=== PATIENT | male | born 1960 | race Caucasian/White ===

== ENCOUNTER 2016-09-08 14:52 | Emergency (ER) | payer MEDICARE, MEDICAID ==
--- NOTE | 2016-09-08 15:21 | ER Document Report ---
ED Medical Screen (RME) - General Stated Complaint: POSSIBLE ETOH;ANKLE INJURY Notes: Patient states he was walking and injured his right ankle today. Able to bear weight on ankle. Patient states he has a history of osteoporosis. Patient states he has had a sixpack of beer to drink today I have greeted and performed a rapid initial assessment of this patient. A comprehensive ED assessment and evaluation of the patient, analysis of test results and completion of the medical decision making process will be conducted by additional ED providers. TRAVEL OUTSIDE OF THE [place] IN LAST 30 DAYS: No - Related Data Allergies/Adverse Reactions: Penicillins Allergy (Verified 09/08/16 15:22) ants Allergy (Uncoded 09/08/16 15:22) bees Allergy (Uncoded 09/08/16 15:22) Past Medical History - Past Medical History Cardiac Medical History: Reports: Hx Hypercholesterolemia, Hx Hypertension, Hx Heart Murmur Denies: Hx Heart Attack Pulmonary Medical History: Reports: Hx Asthma, Hx Bronchitis, Hx COPD, Hx Pneumonia Denies: Hx Intubation, Hx Sleep Apnea, Hx Tuberculosis Neurological Medical History: Reports: Hx Migraine, Hx Seizures. Denies: Hx Cerebrovascular Accident Endocrine Medical History: Reports: Hx Diabetes Mellitus Type 2. Denies: Hx Hyperthyroidism, Hx Hypothyroidism Renal/ Medical History: Reports: Hx Benign Prostatic Hyperplasia GI Medical History: Reports: Hx Gastritis, Hx Gastroesophageal Reflux Disease, Hx Irritable Bowel, Hx Colonoscopy. Denies: Hx Hepatitis, Hx Hiatal Hernia, Hx Endoscopy Musculoskeltal Medical History: Reports Hx Arthritis, Reports Hx Musculoskeletal Deformity, Reports Hx Musculoskeletal Trauma Psychiatric Medical History: Reports: Hx Depression Traumatic Medical History: Reports: Hx Fractures - leg both Infectious Medical History: Reports: Hx HIV. Denies: Hx Hepatitis Past Surgical History: Reports: Hx Orthopedic Surgery - multiple leg surgeries ons left shoulder surgery. Denies: Hx Pacemaker - Immunizations Immunizations up to date: Yes Hx Diphtheria, Pertussis, Tetanus Vaccination: Yes Physical Exam - Vital signs Vitals: Temp Pulse Resp BP Pulse Ox 97.6 F 65 18 106/65 98 09/08/16 14:58 09/08/16 14:58 09/08/16 14:58 09/08/16 14:58 09/08/16 14:58 Notes: Patient has slurred speech in triage. - Extremities Notes: Mild deformity noted to right ankle, moderate edema. Neurovascular intact. Course - Vital Signs Vital signs: Temp Pulse Resp BP Pulse Ox 97.6 F 65 18 106/65 98 09/08/16 14:58 09/08/16 14:58 09/08/16 14:58 09/08/16 14:58 09/08/16 14:58
[2016-09-08 17:20] LABS: APPEARANCE,URINE CLEAR; BILIRUBIN,URINE NEGATIVE (NEGATIVE); GLUCOSE, URINE NEGATIVE (NEGATIVE); KETONES,URINE NEGATIVE (NEGATIVE); LEUKOCYTE ESTERASE,URINE NEGATIVE (NEGATIVE); NITRITE,URINE NEGATIVE (NEGATIVE); PROTEIN,URINE NEGATIVE (NEGATIVE); URINE SPECIFIC GRAVITY 1.009; UROBILINOGEN,URINE NEGATIVE mg/dL (<2.0)
[2016-09-08 17:23] LABS: ABSOLUTE EOSINOPHILS # (AUTO) 0.3 10^3/uL (0.0-0.6); ABSOLUTE LYMPHOCYTES (AUTO) 3.9 10^3/uL (0.5-4.7); ABSOLUTE MONOCYTES (AUTO) 0.4 10^3/uL (0.1-1.4); ABSOLUTE NEUT (AUTO) 2.9 10^3/uL (1.7-8.2); BASOPHILS % (AUTO) 0.6 % (0-2); EOSINOPHILS % (AUTO) 3.5 % (0-6); HEMATOCRIT 41.2 % (37.9-51.0); HEMOGLOBIN 14.1 g/dL (13.5-17.0); HGB HCT DIFFERENCE 1.1; LYMPHOCYTES % (AUTO) 51.5 % (13-45); MEAN CORPUSCULAR HEMOGLOBIN 41.4 pg (27.0-33.4); MEAN CORPUSCULAR HGB CONC 34.3 g/dL (32.0-36.0); MEAN CORPUSCULAR VOLUME 121 fl (80-97); RED BLOOD COUNT 3.41 10^6/uL (4.35-5.55); RED CELL DISTRIBUTION WIDTH 13.6 % (11.5-14.0); SEGMENTED NEUTROPHILS % (AUTO) 38.4 % (42-78); WHITE BLOOD COUNT 7.5 10^3/uL (4.0-10.5)
[2016-09-08 17:35] LABS: ALANINE AMINOTRANSFERASE 55 U/L (21-72); ALCOHOL 268 mg/dL (NONE DETECTED); ALKALINE PHOSPHATASE 153 U/L (38-126); ANION GAP 18 (5-19); ASPARTATE AMINO TRANSFERASE 54 U/L (17-59); BILIRUBIN,TOTAL 0.6 mg/dL (0.2-1.3); BLOOD UREA NITROGEN 7 mg/dL (7-20); CALCIUM 9.3 mg/dL (8.4-10.2); CARBON DIOXIDE 23 mmol/L (22-30); CHLORIDE 93 mmol/L (98-107); CREATININE RESULT 0.47 mg/dL (0.52-1.25); GLUCOSE 80 mg/dL (75-110); POTASSIUM 4.9 mmol/L (3.6-5.0); SODIUM 134.2 mmol/L (137-145); TOTAL PROTEIN 8.7 g/dL (6.3-8.2)
[2016-09-08 17:45] LABS: TOXIC GRANULATION SLIGHT
--- NOTE | 2016-09-08 19:15 | ER Document Report ---
ED Extremity Problem, Lower - General Chief Complaint: Ankle Pain Stated Complaint: POSSIBLE ETOH;ANKLE INJURY Time seen by provider: 19:09 Mode of Arrival: Medic Information source: Patient Notes: This is a 56-year-old man with a history of HIV, COPD, thrombocytopenia and seizures who presents to the emergency room with right ankle pain after fall at home. The patient states he everted the right foot and fell when he twisted it. He denies any loss of consciousness or head injury. TRAVEL OUTSIDE OF THE [place] IN LAST 30 DAYS: No - HPI Patient complains to provider of: Injury, Pain, Swelling Location: Ankle Occurred: Just prior to arrival Where: Home Onset/Duration: Sudden Quality of pain: Dull Severity: Moderate Pain Level: 3 Context: Twisted Recent injury: Yes Associated symptoms: denies: Chest pain, Chills, Dizzy, Fainting, Fever, Sierra a crack, Sierra a pop, Hurts to breath, Painful ambulation, Rapid heart rate, Seizure, Short of breath, Sweaty, Unable to bear weight, Weak, Other Exacerbated by: Movement Relieved by: Rest - Related Data Allergies/Adverse Reactions: Penicillins Allergy (Verified 09/08/16 15:22) ants Allergy (Uncoded 09/08/16 15:22) bees Allergy (Uncoded 09/08/16 15:22) Past Medical History - General Information source: Patient - Social History Smoking Status: Current Every Day Smoker Cigarette use (# per day): No Chew tobacco use (# tins/day): No Frequency of alcohol use: Heavy Drug Abuse: None Lives with: Alone Family History: Arthritis, CAD, DM, Hyperlipidemia, Hypertension, Malignancy. denies: CVA, Thyroid Disfunction Patient has suicidal ideation: No Patient has homicidal ideation: No - Past Medical History Cardiac Medical History: Reports: Hx Hypercholesterolemia, Hx Hypertension, Hx Heart Murmur Denies: Hx Heart Attack Pulmonary Medical History: Reports: Hx Asthma, Hx Bronchitis, Hx COPD, Hx Pneumonia Denies: Hx Intubation, Hx Sleep Apnea, Hx Tuberculosis Neurological Medical History: Reports: Hx Migraine, Hx Seizures. Denies: Hx Cerebrovascular Accident Endocrine Medical History: Reports: Hx Diabetes Mellitus Type 2. Denies: Hx Hyperthyroidism, Hx Hypothyroidism Renal/ Medical History: Reports: Hx Benign Prostatic Hyperplasia. Denies: Hx Peritoneal Dialysis GI Medical History: Reports: Hx Gastritis, Hx Gastroesophageal Reflux Disease, Hx Irritable Bowel, Hx Colonoscopy. Denies: Hx Hepatitis, Hx Hiatal Hernia, Hx Endoscopy Musculoskeltal Medical History: Reports Hx Arthritis, Reports Hx Musculoskeletal Deformity, Reports Hx Musculoskeletal Trauma Psychiatric Medical History: Reports: Hx Depression Traumatic Medical History: Reports: Hx Fractures - leg both Infectious Medical History: Reports: Hx HIV. Denies: Hx Hepatitis Past Surgical History: Reports: Hx Orthopedic Surgery - multiple leg surgeries ons left shoulder surgery. Denies: Hx Pacemaker - Immunizations Immunizations up to date: Yes Hx Diphtheria, Pertussis, Tetanus Vaccination: Yes Hx Pneumococcal Vaccination: 06/01/11 Review of Systems - Review of Systems Constitutional: denies: Chills, Fever EENT: No symptoms reported Cardiovascular: No symptoms reported Respiratory: No symptoms reported Gastrointestinal: No symptoms reported Genitourinary: No symptoms reported Male Genitourinary: No symptoms reported Musculoskeletal: See HPI Skin: No symptoms reported Hematologic/Lymphatic: No symptoms reported Neurological/Psychological: No symptoms reported Physical Exam - Vital signs Vitals: Temp Pulse Resp BP Pulse Ox 97.6 F 65 18 106/65 98 09/08/16 14:58 09/08/16 14:58 09/08/16 14:58 09/08/16 14:58 09/08/16 14:58 Notes: Physical exam GENERAL: 56-year-old man, alert and oriented 3, no acute distress. He is complaining of right lower extremity pain and swelling. HEAD: Atraumatic, normocephalic. EYES: Pupils equal round and reactive to light, extraocular movements intact, sclera anicteric, conjunctiva are normal. ENT: TMs normal, nares patent, oropharynx clear without exudates. Moist mucous membranes. NECK: Normal range of motion, supple without lymphadenopathy or JVD. LUNGS: Breath sounds clear to auscultation bilaterally and equal. No wheezes rales or rhonchi. HEART: Regular rate and rhythm without murmurs, rubs or gallops. ABDOMEN: Soft, normoactive bowel sounds. No tenderness to palpation. No guarding, no rebound. No masses appreciated. EXTREMITIES: Right lower extremity: Patient does have swelling about the ankle. He has tenderness over the lateral malleolus. He is nontender medially. His cap refill distally is good. He can move his toes without any problems. Sensation is intact. NEUROLOGICAL: Cranial nerves II through XII grossly intact. Normal speech, moving all extremities, sensory grossly intact. PSYCH: Normal mood, normal affect. SKIN: Warm, Dry, normal turgor, no rashes or lesions noted. Course - Vital Signs Vital signs: Temp Pulse Resp BP Pulse Ox 97.6 F 65 18 106/65 98 09/08/16 14:58 09/08/16 14:58 09/08/16 14:58 09/08/16 14:58 09/08/16 14:58 - Laboratory Result Diagrams: 09/08/16 16:00 09/08/16 16:00 Laboratory results interpreted by me: 09/08/16 09/08/16 16:00 16:00 RBC 3.41 L MCV 121 H MCH 41.4 H Plt Count 133 L Seg Neutrophils % 38.4 L Lymphocytes % 51.5 H Sodium 134.2 L Chloride 93 L Creatinine 0.47 L Alkaline Phosphatase 153 H Total Protein 8.7 H - Diagnostic Test Radiology reviewed: Image reviewed, Reports reviewed - X-ray of the right ankle shows an oblique fracture through the distal fibula Discharge - Discharge Clinical Impression: right distal fibular fracture Condition: Stable Disposition: HOME, SELF-CARE Instructions: Fractured Ankle (Bimalleolar) ([facility]) Additional Instructions: Recommendations: It's important to be nonweightbearing on the leg. Try to use the crutches to be nonweightbearing. The alternative is a wheelchair. Important to call the orthopedic clinic on Sunday for follow-up appointment. If you do need a referral, see Dr. Velasquez on Sunday. Take the main pain medicine as prescribed. See the narcotic instruction sheet. They did not have hydrocodone without Tylenol, so I prescribed oxycodone. The pain medicine you're taking prescribed as a narcotic. There are several important things you should know about this medicine: 1. Taking narcotics for too long can lead to physical and mental dependence. Take this medicine only if really needed and in the lowest quantity to achieve pain relief. 2. Do not drink alcohol while on this medicine. Alcohol interacts with narcotics and the combination can be dangerous. 3. Do not drive or operate machinery while on this medicine. 4. Narcotics do cause constipation, so drink plenty of fluids and daily stool softeners. Prescriptions: Oxycodone HCl [Oxycodone HCl 10 MG Tablet] 10 mg PO Q6HP PRN #25 tablet PRN Reason: Referrals: PHILIPPE NAZARIO MD [ACTIVE STAFF] - 09/11/16 GILLES YUSUF MD [ACTIVE STAFF] - 09/11/16 (This is the number for the orthopedic clinic. Call the clinic on Sunday and tell the business management intern that you were in the emergency room with an ankle fracture in the ER doctor wanted you seen on Sunday or Sunday.)
[2016-09-08] MEDS ORDERED: HYDROCODONE/ACETAMINOPHEN 5-325 MG 6 TAB/DSPK PO PRN (19:23)
[2016-09-09 02:09] VITALS: BP 142/79
== END 2016-09-08 22:15 | disposition home or self-care (01) ==
LOC: ER 14:52
PROC: 2W3QX1Z Immobilization of Right Lower Leg using Splint (ICD-10-PCS; principal; 2016-09-08)
DX: S82.64XA Nondisplaced fracture of lateral malleolus of right fibula, initial encounter for closed fracture (principal); W19.XXXA Unspecified fall, initial encounter; Y92.009 Unspecified place in unspecified non-institutional (private) residence as the place of occurrence of the external cause; E11.9 Type 2 diabetes mellitus without complications; I10 Essential (primary) hypertension; J45.909 Unspecified asthma, uncomplicated; F17.200 Nicotine dependence, unspecified, uncomplicated; J44.9 Chronic obstructive pulmonary disease, unspecified; Z21 Asymptomatic human immunodeficiency virus [HIV] infection status; Z98.890 Other specified postprocedural states; Z88.0 Allergy status to penicillin; Z91.030 Bee allergy status; Z91.038 Other insect allergy status
CPT/HCPCS: 99284; 36415; 80307; 85025; 80053; 81001; 73610; 29515; A9270

== ENCOUNTER 2016-09-11 14:56 | Emergency (ER) | payer MEDICAID ==
[2016-09-11 15:21] VITALS: BP 118/66
--- NOTE | 2016-09-11 16:13 | ER Document Report ---
ED General - General Chief Complaint: Leg Pain Stated Complaint: FALL/RIGHT LEG PAIN TRAVEL OUTSIDE OF THE [place] IN LAST 30 DAYS: No - HPI Patient complains to provider of: EtOH right ankle pain Notes: Patient's coming in via EMS for right ankle pain patient has been drinking today felt his apartment on his crutches called EMS because of increased pain. Upon my evaluation patient is sleeping patient is easily arousable complains of pain in his ankle. Patient has a posterior OCL with a Turkmen still applied to his ankle. Toes are exposed and are pink with normal cap refill. Patient states that he is rubbing his leg approximate 32 times. Patient is in no obvious distress - Related Data Allergies/Adverse Reactions: Penicillins Allergy (Verified 09/08/16 15:22) ants Allergy (Uncoded 09/08/16 15:22) bees Allergy (Uncoded 09/08/16 15:22) Past Medical History - Social History Smoking Status: Unknown if Ever Smoked Frequency of alcohol use: Heavy Family History: Arthritis, CAD, DM, Hyperlipidemia, Hypertension, Malignancy. denies: CVA, Thyroid Disfunction Patient has suicidal ideation: No Patient has homicidal ideation: No - Past Medical History Cardiac Medical History: Reports: Hx Hypercholesterolemia, Hx Hypertension, Hx Heart Murmur Denies: Hx Heart Attack Pulmonary Medical History: Reports: Hx Asthma, Hx Bronchitis, Hx COPD, Hx Pneumonia Denies: Hx Intubation, Hx Sleep Apnea, Hx Tuberculosis Neurological Medical History: Reports: Hx Migraine, Hx Seizures. Denies: Hx Cerebrovascular Accident Endocrine Medical History: Reports: Hx Diabetes Mellitus Type 2. Denies: Hx Hyperthyroidism, Hx Hypothyroidism Renal/ Medical History: Reports: Hx Benign Prostatic Hyperplasia. Denies: Hx Peritoneal Dialysis GI Medical History: Reports: Hx Gastritis, Hx Gastroesophageal Reflux Disease, Hx Irritable Bowel, Hx Colonoscopy. Denies: Hx Hepatitis, Hx Hiatal Hernia, Hx Endoscopy Musculoskeltal Medical History: Reports Hx Arthritis, Reports Hx Musculoskeletal Deformity, Reports Hx Musculoskeletal Trauma Psychiatric Medical History: Reports: Hx Depression Traumatic Medical History: Reports: Hx Fractures - leg both Infectious Medical History: Reports: Hx HIV. Denies: Hx Hepatitis Past Surgical History: Reports: Hx Orthopedic Surgery - multiple leg surgeries ons left shoulder surgery. Denies: Hx Pacemaker - Immunizations Immunizations up to date: Yes Hx Diphtheria, Pertussis, Tetanus Vaccination: Yes Hx Pneumococcal Vaccination: 06/01/11 Review of Systems - Review of Systems Constitutional: No symptoms reported EENT: No symptoms reported Cardiovascular: No symptoms reported Respiratory: No symptoms reported Gastrointestinal: No symptoms reported Genitourinary: No symptoms reported Male Genitourinary: No symptoms reported Musculoskeletal: Ankle swelling Skin: No symptoms reported Hematologic/Lymphatic: No symptoms reported Neurological/Psychological: No symptoms reported -: Yes All other systems reviewed and negative Physical Exam - Vital signs Vitals: Temp Pulse BP Pulse Ox 97.3 F 81 118/66 97 09/11/16 15:07 09/11/16 15:07 09/11/16 15:07 09/11/16 15:07 Interpretation: Normal - General General appearance: Appears well, Alert - HEENT Head: Normocephalic, Atraumatic Eyes: Normal Pupils: PERRL - Respiratory Respiratory status: No respiratory distress Chest status: Nontender Breath sounds: Normal Chest palpation: Normal - Cardiovascular Rhythm: Regular Heart sounds: Normal auscultation Murmur: No - Abdominal Inspection: Normal Distension: No distension Bowel sounds: Normal Tenderness: Nontender Organomegaly: No organomegaly - Back Back: Normal, Nontender - Extremities General upper extremity: Normal inspection, Nontender, Normal color, Normal ROM , Normal temperature General lower extremity: Nontender, Normal color, Normal ROM, Normal temperature , Normal weight bearing. No: Normal inspection - Patient has a right posterior OCL of the right ankle with normal cap refill sensation of his toes, Madyson's sign - Neurological Neuro grossly intact: Yes Cognition: Normal Orientation: AAOx4 [place] Coma Scale Eye Opening: Spontaneous Evie Coma Scale Verbal: Oriented Evie Coma Scale Motor: Obeys Commands [place] Coma Scale Total: 15 Speech: Normal Motor strength normal: LUE, RUE, LLE, RLE Sensory: Normal - Psychological Associated symptoms: Normal affect, Normal mood, Other - Intoxicated - Skin Skin Temperature: Warm Skin Moisture: Dry Skin Color: Normal Course - Re-evaluation Re-evalutation: 09/11/16 19:14 An x-ray was performed showing again previous fracture no change. Patient will be discharged home 09/11/16 19:14 - Vital Signs Vital signs: Temp Pulse Resp BP Pulse Ox 97.3 F 81 118/66 97 09/11/16 15:07 09/11/16 15:07 09/11/16 15:09/11/16 15:07 Discharge - Discharge Clinical Impression: HIV (human immunodeficiency virus infection), Alcohol use Ankle fracture, right Qualifiers: Encounter type: subsequent encounter Fracture type: closed Fracture healing: with routine healing Qualified Code(s): S82.891D - Other fracture of right lower leg, subsequent encounter for closed fracture with routine healing Condition: Good Disposition: HOME, SELF-CARE Instructions: Fractured Ankle (Bimalleolar) ([facility]), Oral Narcotic Medication ( [facility]), Acute Alcohol Intoxication ([facility]) Additional Instructions: Please follow-up with the orthopedic doctor that we gave you last visit and today. Continue your previously prescribe pain medication Do not drink alcohol and take your pain medication Referrals: GILLES YUSUF MD [ACTIVE STAFF] - Follow up as needed
== END 2016-09-11 16:30 | disposition home or self-care (01) ==
LOC: ER 14:56
DX: B20 Human immunodeficiency virus [HIV] disease (principal); S82.891D Other fracture of right lower leg, subsequent encounter for closed fracture with routine healing; F10.129 Alcohol abuse with intoxication, unspecified; M25.571 Pain in right ankle and joints of right foot; W18.30XA Fall on same level, unspecified, initial encounter; Y92.039 Unspecified place in apartment as the place of occurrence of the external cause; E78.00 Pure hypercholesterolemia, unspecified; I10 Essential (primary) hypertension; J44.9 Chronic obstructive pulmonary disease, unspecified; J45.909 Unspecified asthma, uncomplicated; E11.9 Type 2 diabetes mellitus without complications; Z91.030 Bee allergy status; Z91.038 Other insect allergy status; Z88.0 Allergy status to penicillin
CPT/HCPCS: 99283

== ENCOUNTER 2016-10-16 00:03 | Inpatient (IN) | payer MEDICARE, MEDICAID ==
[2016-10-16] MEDS ORDERED: IPRATROPIUM/ALBUTEROL 0.5-2.5 MG/3 ML AMPUL NEB ONE ×2 (00:29→04:15)
[2016-10-16] MEDS ORDERED: PHENYTOIN SODIUM EXTENDED 100 MG CAPSULE PO ONE (00:30)
[2016-10-16] MEDS ORDERED: MAGNESIUM SULFATE/D5W 100 ML IV SCH ×2 (00:30→04:15)
--- NOTE | 2016-10-16 00:33 | ER Document Report ---
ED General - General Stated Complaint: DIFFICULITY BREATHING Notes: Patient is a 56-year-old male who presents intoxicated. He called him once because of difficulty breathing. He doesn't drink small call tonight. He said he went to a neighbor's house and had several beers. He says he does not drink every night. He does not get alcohol withdrawal. Denies any fevers. He denies infections. He does have a history of COPD. He does have a history of smoking. Does have history of HIV. He says he is compliant with his HIV medications. He said his viral load is nondetectable. He says his CD4 count is good. He has had pneumonia in the past. He did receive breathing treatments and Solu-Medrol in the ambulance. He says that these did help him significant. TRAVEL OUTSIDE OF THE [place] IN LAST 30 DAYS: No - Related Data Allergies/Adverse Reactions: Penicillins Allergy (Verified 09/08/16 15:22) ants Allergy (Uncoded 09/08/16 15:22) bees Allergy (Uncoded 09/08/16 15:22) Past Medical History - Social History Smoking Status: Current Every Day Smoker Frequency of alcohol use: Occasional Drug Abuse: None Family History: Arthritis, CAD, DM, Hyperlipidemia, Hypertension, Malignancy. denies: CVA, Thyroid Disfunction - Past Medical History Cardiac Medical History: Reports: Hx Hypercholesterolemia, Hx Hypertension, Hx Heart Murmur Denies: Hx Heart Attack Pulmonary Medical History: Reports: Hx Asthma, Hx Bronchitis, Hx COPD, Hx Pneumonia Denies: Hx Intubation, Hx Sleep Apnea, Hx Tuberculosis Neurological Medical History: Reports: Hx Migraine, Hx Seizures. Denies: Hx Cerebrovascular Accident Endocrine Medical History: Reports: Hx Diabetes Mellitus Type 2. Denies: Hx Hyperthyroidism, Hx Hypothyroidism Renal/ Medical History: Reports: Hx Benign Prostatic Hyperplasia. Denies: Hx Peritoneal Dialysis GI Medical History: Reports: Hx Gastritis, Hx Gastroesophageal Reflux Disease, Hx Irritable Bowel, Hx Colonoscopy. Denies: Hx Hepatitis, Hx Hiatal Hernia, Hx Endoscopy Musculoskeltal Medical History: Reports Hx Arthritis, Reports Hx Musculoskeletal Deformity, Reports Hx Musculoskeletal Trauma Psychiatric Medical History: Reports: Hx Depression Traumatic Medical History: Reports: Hx Fractures - leg both Infectious Medical History: Reports: Hx HIV. Denies: Hx Hepatitis Past Surgical History: Reports: Hx Orthopedic Surgery - multiple leg surgeries ons left shoulder surgery. Denies: Hx Pacemaker - Immunizations Immunizations up to date: Yes Hx Diphtheria, Pertussis, Tetanus Vaccination: Yes Hx Pneumococcal Vaccination: 06/01/11 Review of Systems - Review of Systems Notes: My Normal Review Basic REVIEW OF SYSTEMS: CONSTITUTIONAL : Denies fever, chills, or sweats. Denies recent illness. EENT: Denies eye, ear, throat, or mouth pain or symptoms. Denies nasal or sinus congestion. CARDIOVASCULAR: Denies chest pain. RESPIRATORY: Coughing. Difficulty breathing. Wheezing. GASTROINTESTINAL: Denies abdominal pain. Denies nausea, vomiting, or diarrhea. Denies constipation. Last BM: GENITOURINARY: Denies difficulty urinating, painful urination, burning, frequency, or blood in urine. FEMALE GENITOURINARY: Denies vaginal bleeding, abnormal or irregular periods. LMP: MUSCULOSKELETAL: Fractured right ankle which is in a boot. SKIN: Denies rash or skin lesions.. NEUROLOGICAL: Denies altered mental status or loss of consciousness. Denies headache. Denies weakness or paralysis or loss of use of either side. Denies problems with gait or speech. Denies sensory or motor loss. ALL OTHER SYSTEMS REVIEWED AND NEGATIVE. Physical Exam - Vital signs Vitals: Resp 15 10/16/16 00:13 - Notes Notes: General Appearance: Well nourished, alert, cooperative, no acute distress, no obvious discomfort. Well-appearing. Vitals: reviewed, See vital signs table. Head: no swelling or tenderness to the head Eyes: PERRL, EOMI, Conjuctiva clear Mouth: No decreasd moisture Neck: Supple, no neck tenderness, No thyromegaly Lungs: Scattered wheezing, No rales, mild to moderate rhonci, No accessory muscle use, good air exchange bilaterally. Heart: Normal rate, Regular rythm, No murmur, no rub Abdomen: Normal BS, soft, No rigidity, No abdominal tenderness, No guarding, no rebound, no abdominal masses, no organomegaly Extremities: strength 5/5 in all extremities, good pulses in all extremities, no swelling or tenderness in the extremities, right foot and ankle is in a walking boot. No significantswelling. Good distal pulses. No edema. Skin: warm, dry, appropriate color, no rash Neuro: speech clear, oriented x 3, intoxicated, responds appropriately to questions. Cranial nerves II through XII are intact. Distal sensation intact. Patient moves all extremities without difficulty. Course - Re-evaluation Re-evalutation: 10/16/16 05:48 Agents 1 auscultation does have some wheezing and rhonchi. Patient feels like his breathing is getting worse. Seems very anxious. I once again asked him about history of alcohol withdrawal. Patient adamantly denies drinking on a regular basis. He denies any history of alcohol withdrawal. Also given a dose of Ativan. He is tachycardic and we'll bit shaky which could be related to the breathing treatments but a few may possibly be related to some withdrawal off the patient is not completely truthful about his alcohol history. When the patient comes off oxygen his oxygen saturation is due to down into the 80s. I feel that it's appropriate to admit the patient. Patient's fall by Dr. Nazario. I have attempted to call the hospitalist and and awaiting to hear back. - Vital Signs Vital signs: Temp Pulse Resp BP Pulse Ox 98.2 F 10 L 95 10/16/16 02:00 10/16/16 05:13 10/16/16 05:13 - Laboratory Result Diagrams: 10/16/16 00:19 10/16/16 00:19 Laboratory results interpreted by me: 10/16/16 10/16/16 00:19 00:19 RBC 3.29 L MCV 121 H MCH 41.8 H Seg Neutrophils % 39.1 L Lymphocytes % 51.8 H Sodium 136.7 L Chloride 96 L BUN 4 L Creatinine 0.40 L - Transfer of Care Notes: 10/16/16 05:53 I did speak with Dr. Kebede who agrees with the patient. I do suspect that his breathing difficulties is related bronchitis. He does have a history of HIV and therefore I am covering him with Levaquin. Patient has recurrent wheezing and rhonchorous breath sounds. He does have a recent ankle fracture but I do not suspect PE at this time being that his presentation is very soft consistent with bronchitis. He smells of cigarette smoke. He has diffuse wheezing and rhonchorous breath sounds. He has large amount of coughing. Patient will be admitted for further treatment. Dictation of this chart was performed using voice recognition software; therefore, there may be some unintended grammatical errors. Discharge - Discharge Clinical Impression: COPD (chronic obstructive pulmonary disease) with acute bronchitis, Alcohol abuse Admitting Provider: Hospitalist Unit Admitted: Telemetry Referrals: PHILIPPE NAZARIO MD [Primary Care Provider] - Follow up as needed
[2016-10-16] MEDS ORDERED: LEVOFLOXACIN 750 MG TABLET PO ONE (04:16)
[2016-10-16 04:42] LABS: ANION GAP 19 (5-19); BLOOD UREA NITROGEN 4 mg/dL (7-20); CALCIUM 8.7 mg/dL (8.4-10.2); CARBON DIOXIDE 22 mmol/L (22-30); CHLORIDE 96 mmol/L (98-107); GLUCOSE 94 mg/dL (75-110); POTASSIUM 4.8 mmol/L (3.6-5.0); SODIUM 136.7 mmol/L (137-145)
[2016-10-16 05:23] LABS: ABSOLUTE EOSINOPHILS # (AUTO) 0.2 10^3/uL (0.0-0.6); ABSOLUTE LYMPHOCYTES (AUTO) 4.6 10^3/uL (0.5-4.7); ABSOLUTE MONOCYTES (AUTO) 0.6 10^3/uL (0.1-1.4); ABSOLUTE NEUT (AUTO) 3.5 10^3/uL (1.7-8.2); BASOPHILS % (AUTO) 0.4 % (0-2); EOSINOPHILS % (AUTO) 2.3 % (0-6); HEMATOCRIT 39.9 % (37.9-51.0); HEMOGLOBIN 13.8 g/dL (13.5-17.0); HGB HCT DIFFERENCE 1.5; LYMPHOCYTES % (AUTO) 51.8 % (13-45); MEAN CORPUSCULAR HEMOGLOBIN 41.8 pg (27.0-33.4); MEAN CORPUSCULAR HGB CONC 34.5 g/dL (32.0-36.0); MONOCYTES % (AUTO) 6.4 % (3-13); RED BLOOD COUNT 3.29 10^6/uL (4.35-5.55); RED CELL DISTRIBUTION WIDTH 13.9 % (11.5-14.0); SEGMENTED NEUTROPHILS % (AUTO) 39.1 % (42-78); WHITE BLOOD COUNT 8.9 10^3/uL (4.0-10.5)
[2016-10-16 05:24] LABS: MEAN CORPUSCULAR VOLUME 121 fl (80-97)
[2016-10-16] MEDS ORDERED: LORAZEPAM INJ 2 MG/1 ML VIAL IV ONE (05:48)
[2016-10-16] MEDS ORDERED: NORMAL SALINE 1000 ML 1,000 ML IV ONE (06:10)
[2016-10-16] MEDS ORDERED: NORMAL SALINE 500 ML IV ONE (06:10)
--- NOTE | 2016-10-16 08:43 | EKG REPORT ---
SEVERITY:- ABNORMAL ECG - SINUS TACHYCARDIA PROBABLE LEFT ATRIAL ABNORMALITY REPOL ABNRM SUGGESTS ISCHEMIA, DIFFUSE LEADS BORDERLINE PROLONGED QT INTERVAL : Confirmed by: Tracie Masterson 16-Oct-2016 08:42:24
[2016-10-16] MEDS ORDERED: METHYLPREDNISOLONE INJ 125 MG/2 ML SDV IV ONE (10:45)
[2016-10-16] MEDS ORDERED: ZOLPIDEM TARTRATE 5 MG TABLET PO PRN (12:56)
[2016-10-16] MEDS ORDERED: PROMETHAZINE HCL 25 MG TABLET PO PRN (13:17)
[2016-10-16] MEDS ORDERED: ALPRAZOLAM 0.5 MG TABLET PO PRN (13:18)
[2016-10-16] MEDS: LEVALBUTEROL HCL NEB 1.25 MG/3 ML AMPUL NEB SCH ×2 (14:10→20:26)
[2016-10-16] MEDS: METFORMIN HCL 500 MG TABLET PO SCH (15:30)
[2016-10-16] MEDS: PHENOBARBITAL 64.8 MG TABLET PO SCH ×2 (15:30→22:38)
--- NOTE | 2016-10-16 15:41 | PDOC H&P ---
History of Present Illness Admission Date/PCP: 10/16/16 12:56 PHILIPPE NAZARIO Patient complains of: Hx of alcohol abuse and drank a lot of beer on day of presetation; dyspnea and cough. History of Present Illness: REGINA LEAL is a 56 year old male with hx of DM2/HTN/Hyperlipidemia/DM neuropathy/COPD/HIV/AIDS on HAART/Seizure disorder/Chronic back pain/ Osteoarthritis of knees/GERD/Vitamin D def./Depression/Anxiety disorder/Chronic smoker.He was in his baseline un til day of presentation when he went to a neighbor's house and drank a lot of beer and became intoxicated. He also started having dyspnea and cough. He was given nebulization and steroids by EMS and he felt better. At ER his oxygen saturation was 85% on RA despite nebulizations and Levaquin.He ws admitted for COPD exacerbation/Pneumonia and Alcohol intoxication. Past Medical History Cardiac Medical History: Reports: Hyperlipidema, Hypertension, Heart Murmur Denies: Myocardial Infarction Pulmonary Medical History: Reports: Asthma, Bronchitis, Chronic Obstructive Pulmonary Disease (COPD), Pneumonia Denies: Intubation, Sleep Apnea, Tuberculosis Neurological Medical History: Reports: Migraine, Seizures Endocrine Medical History: Reports: Diabetes Mellitus Type 2 Denies: Hyperthyroidism, Hypothyroidism GI Medical History: Reports: Gastroesophageal Reflux Disease Denies: Hepatitis, Hiatal Hernia Musculoskeltal Medical History: Reports: Arthritis Psychiatric Medical History: Reports: Depression Hematology: Reports: Anemia Infectious Medical History: Reports: HIV Past Surgical History Past Surgical History: Reports: Orthopedic Surgery - multiple leg surgeries ons left shoulder surgery Denies: Pacemaker Social History Smoking Status: Current Some Day Smoker Number of Years Smokin Last Time Smoked: 10/15/16 Frequency of Alcohol Use: Occasional Hx Recreational Drug Use: No Drugs: None Hx Prescription Drug Abuse: No Family History Family History: Arthritis, CAD, DM, Hyperlipidemia, Hypertension, Malignancy. denies: CVA, Thyroid Disfunction Parental Family History Reviewed: Yes Children Family History Reviewed: Yes Sibling(s) Family History Reviewed.: Yes Medication/Allergy Home Medications: Abacavir/Lamivudine/Zidovudine [Trizivir Tablet] 1 tab PO Q12 10/16/16 Acetaminophen with Codeine [Acetaminophen-Cod #3 Tablet] 1 tab PO Q8HP PRN 10/16 Albuterol Sulfate [Albuterol Sulfate 2.5mg/3 mL] 2.5 mg PO TID 10/16/16 Albuterol Sulfate [Ventolin HFA MDI 18 GM] 2 puff IH Q4HP PRN 10/16/16 Alprazolam [Xanax] 1 mg PO Q8 10/16/16 Atorvastatin Calcium [Lipitor 40 mg Tablet] 40 mg PO DAILY 10/16/16 Diphenhydramine HCl [Benadryl 25 mg Capsule] 25 mg PO BIDP PRN 10/16/16 Diphenoxylate HCl/Atropine [Lomotil 2.5-0.025 mg Tablet] 1 tab PO QIDP PRN 10/16 Ergocalciferol (Vitamin D2) [Vitamin D2] 50,000 unit PO COLLINS@1000 10/16/16 Hydroxyzine HCl [Atarax 25 mg Tablet] 25 mg PO Q8HP PRN 10/16/16 Metformin HCl [Glucophage] 1,000 mg PO BIDACBS 10/16/16 Metoprolol Succinate [Toprol XL 100 mg Tablet] 100 mg PO DAILY 10/16/16 Omeprazole 40 mg PO DAILY 10/16/16 Phenobarbital [Phenobarbital 64.8 mg Tablet] 64.8 mg PO Q8 10/16/16 Phenytoin Sodium Extended [Dilantin] 300 mg PO DAILY 10/16/16 Promethazine HCl [Phenergan 25 mg Tablet] 25 mg PO BIDP PRN 10/16/16 Sitagliptin Phosphate [Januvia] 100 mg PO DAILY 10/16/16 Terbinafine HCl [Lamisil 250 mg Tablet] 250 mg PO DAILY 10/16/16 Venlafaxine HCl [Effexor Xr] 150 mg PO [id number] 10/16/16 Allergies/Adverse Reactions: Penicillins Allergy (Verified 10/16/16 08:21) ants Allergy (Uncoded 10/16/16 08:21) bees Allergy (Uncoded 10/16/16 08:21) Review of Systems All systems: as per PMH Constitutional: PRESENT: as per HPI Eyes: PRESENT: as per HPI Ears: PRESENT: as per HPI Nose, Mouth, and Throat: PRESENT: as per HPI Cardiovascular: PRESENT: dyspnea on exertion Respiratory: PRESENT: cough, dyspnea Gastrointestinal: PRESENT: as per HPI Genitourinary: PRESENT: as per HPI Musculoskeletal: PRESENT: as per HPI Integumentary: PRESENT: as per HPI Neurological: PRESENT: as per HPI Psychiatric: PRESENT: as per HPI Endocrine: PRESENT: as per HPI Hematologic/Lymphatic: PRESENT: as per HPI Allergic/Immunologic: PRESENT: as per HPI Physical Exam Vital Signs: Temp Pulse Resp BP Pulse Ox 98.8 F 110 H 18 170/71 H 94 10/16/16 11:45 10/16/16 14:10 10/16/16 14:10 10/16/16 11:45 10/16/16 14:10 General appearance: PRESENT: mild distress, well-developed, well-nourished Head exam: PRESENT: atraumatic, normocephalic Eye exam: PRESENT: EOMI, PERRLA Ear exam: PRESENT: TM's normal bilaterally Mouth exam: PRESENT: moist, neck supple Neck exam: PRESENT: full ROM Respiratory exam: PRESENT: decreased breath sounds, wheezes Cardiovascular exam: PRESENT: +S1, +S2 Pulses: PRESENT: +2 pedal pulses bilateral GI/Abdominal exam: PRESENT: normal bowel sounds, soft Rectal exam: PRESENT: deferred Extremities exam: PRESENT: full ROM Neurological exam: PRESENT: alert, oriented to person, oriented to place, oriented to time, CN II-XII grossly intact Psychiatric exam: PRESENT: normal mood Results Impressions: Chest X-Ray 10/16/16 00:30 IMPRESSION: New small right basilar atelectasis or scar. Chest/Abdomen CTA 10/16/16 07:14 IMPRESSION: 1. Limited study, as above. While there is no central embolus detected, peripheral clot cannot be excluded. 2. Right lower lobe findings to and bronchial wall thickening and mucous plugging with patchy airspace disease may be relatively chronic. Shifting infiltrates otherwise suggests a component of active infection/ inflammation. Assessment & Plan - Diagnosis (1) COPD (chronic obstructive pulmonary disease) with acute bronchitis Is this a current diagnosis for this admission?: YesPlan: Ct with oxygen by N/C at 2 L/min; Solumedrol 80 mg q6h IV; Levaquin 500 mg qd IV ; Duonebs q4h prn; Xopenex nebs 1.25 mg q6h. (2) Pneumonia Qualifiers: Pneumonia type: due to unspecified organism Laterality: right Lung location: unspecified part of lung Qualified Code(s): J18.9 - Pneumonia, unspecified organism Is this a current diagnosis for this admission?: YesPlan: Ct with Levaquin 500 mg qd IV; Tylenol 650 mg q6h prn; F/u sputum and blood cultures. (3) Diabetes mellitus type 2 in nonobese Is this a current diagnosis for this admission?: YesPlan: t with Metformin 10o mg BID po; Januvia 100 mg qd po; Accucheck QAC, QHS with slidding scale with Humalog insulin [facility] protocol; 1800 calorie ADA diet. (4) Hypertension Is this a current diagnosis for this admission?: YesPlan: Ct with Toprol XL 100 mg qd po; 2 g sodium diet. (5) Seizures Is this a current diagnosis for this admission?: YesPlan: Ct with Phenobarb 64.8 mg TID po; Dilantin 300 mg qd po. Seizure/Fall precautions; 4 hourly neurochecks (6) Alcohol abuse Is this a current diagnosis for this admission?: YesPlan: Ct with 4 hourly neurochecks; Seizure and fall precautions; ct with Xanax 1 mg q8h prn po. (7) Hyperlipidemia Is this a current diagnosis for this admission?: YesPlan: Ct with 200 mg cholesterol diet. (8) Lumbago Is this a current diagnosis for this admission?: YesPlan: Ct with Tylenol#3 1 tab q8h po prn. (9) Reflux esophagitis Is this a current diagnosis for this admission?: YesPlan: Ct with Prevacid 30 mg qd po since Omeprazole is not in our formulary. 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 (11) Vitamin D deficiency Is this a current diagnosis for this admission?: YesPlan: Ct with Vitamin D 2000iu qd po. (12) Anxiety disorder Qualifiers: Anxiety disorder type: generalized anxiety disorder Qualified Code(s ): F41.1 - Generalized anxiety disorder Is this a current diagnosis for this admission?: YesPlan: Ct with Xanax 1 mg TID prn po. (13) Depression Is this a current diagnosis for this admission?: YesPlan: Ct with Effexor XR 150 mg qd po. (14) DVT prophylaxis Is this a current diagnosis for this admission?: YesPlan: Ct with Lovenox 40 mg qd subcut; SCD. - Time Time Spent: 30 to 50 Minutes Smoking Cessation Education: 3 to 10 minutes Medications reviewed and adjusted accordingly: Yes Anticipated discharge: Home Within: within 72 hours - Inpatient Certification Medical Necessity: Failure to Improve With Outpatient Therapy, Need Close Monitoring Due to Risk of Patient Decompensation, Need For IV Fluids, Need For Continuous Telemetry Monitoring, Need for Nebulizer Therapy and Monitoring of Response, Need for Neurological Checks, Need for IV Antibiotics
[2016-10-16] MEDS ORDERED: DOCUSATE SODIUM 100 MG CAPSULE PO PRN (15:42)
[2016-10-16] MEDS ORDERED: NICOTINE 21 MG/24 HR PATCH.TD24 TD ONE (16:00)
[2016-10-16] MEDS: INSULIN LISPRO 100 UNIT/ML 3 ML VIAL SUBCUT SCH (16:01)
[2016-10-16] MEDS: ACETAMINOPHEN 325 MG TABLET PO PRN (16:04)
[2016-10-16] MEDS: ACETAMINOPHEN WITH CODEINE #3 TABLET PO SCH (17:44)
[2016-10-16] MEDS: METHYLPREDNISOLONE INJ 40 MG/1 ML SDV IV SCH ×2 (17:44→23:46)
[2016-10-16] MEDS ORDERED: NORMAL SALINE 1000 ML 1,000 ML IV PRN (19:00)
[2016-10-16] MEDS ORDERED: TRIZIVIR PO SCH (19:15)
[2016-10-16 19:57] LABS: PATH REVIEW PATHOLOGIST REVIEWED
[2016-10-16] MEDS: LORAZEPAM 1 MG TABLET (TAPER DOSING) PO SCH (20:13)
[2016-10-16] MEDS: FOLIC ACID 1 MG TABLET PO SCH (22:38)
[2016-10-16] MEDS: THIAMINE HCL 100 MG TABLET PO SCH (22:38)
[2016-10-16] MEDS: MULTIVITAMIN TABLET PO SCH (22:38)
[2016-10-16] MEDS ORDERED: VENLAFAXINE HCL 75 MG CAP.SR.24H PO ONE (23:00)
[2016-10-17] MEDS: LEVALBUTEROL HCL NEB 1.25 MG/3 ML AMPUL NEB SCH ×4 (02:25→19:37)
[2016-10-17] MEDS: LORAZEPAM 1 MG TABLET (TAPER DOSING) PO SCH ×3 (03:05→14:04)
[2016-10-17 05:36] LABS: ALANINE AMINOTRANSFERASE 44 U/L (21-72); ALBUMIN 3.7 g/dL (3.5-5.0); ALKALINE PHOSPHATASE 166 U/L (38-126); ANION GAP 10 (5-19); ASPARTATE AMINO TRANSFERASE 42 U/L (17-59); BILIRUBIN,DIRECT 0.2 mg/dL (0.0-0.4); BILIRUBIN,TOTAL 0.4 mg/dL (0.2-1.3); BLOOD UREA NITROGEN 8 mg/dL (7-20); CALCIUM 8.8 mg/dL (8.4-10.2); CARBON DIOXIDE 26 mmol/L (22-30); CHLORIDE 99 mmol/L (98-107); Direct HDL 77 mg/dL (>40); GLUCOSE 151 mg/dL (75-110); POTASSIUM 4.8 mmol/L (3.6-5.0); SODIUM 135.2 mmol/L (137-145); TOTAL PROTEIN 6.6 g/dL (6.3-8.2); TRIGLYCERIDES 66 mg/dL (<150)
[2016-10-17 05:47] LABS: DIRECT LDL 99 mg/dL (<100)
[2016-10-17] MEDS: PHENOBARBITAL 64.8 MG TABLET PO SCH ×3 (05:48→21:41)
[2016-10-17] MEDS: LANSOPRAZOLE 30 MG TAB.RAP.DR PO SCH (05:49)
[2016-10-17] MEDS: METHYLPREDNISOLONE INJ 40 MG/1 ML SDV IV SCH ×4 (05:49→23:42)
[2016-10-17 06:24] LABS: ABSOLUTE LYMPHOCYTES (AUTO) 0.8 10^3/uL (0.5-4.7); ABSOLUTE MONOCYTES (AUTO) 0.4 10^3/uL (0.1-1.4); ABSOLUTE NEUT (AUTO) 4.6 10^3/uL (1.7-8.2); BASOPHILS % (AUTO) 0.2 % (0-2); HEMOGLOBIN 12.9 g/dL (13.5-17.0); HGB HCT DIFFERENCE 1.7; MEAN CORPUSCULAR HEMOGLOBIN 41.6 pg (27.0-33.4); MEAN CORPUSCULAR HGB CONC 34.8 g/dL (32.0-36.0); MEAN CORPUSCULAR VOLUME 120 fl (80-97); MONOCYTES % (AUTO) 6.2 % (3-13); RED BLOOD COUNT 3.09 10^6/uL (4.35-5.55); RED CELL DISTRIBUTION WIDTH 13.8 % (11.5-14.0); SEGMENTED NEUTROPHILS % (AUTO) 79.6 % (42-78); WHITE BLOOD COUNT 5.8 10^3/uL (4.0-10.5)
[2016-10-17] MEDS: ENOXAPARIN SODIUM INJ 40 MG/0.4 ML DISP.SYRIN SUBCUT SCH (08:06)
[2016-10-17] MEDS: INSULIN LISPRO 100 UNIT/ML 3 ML VIAL SUBCUT SCH ×3 (08:18→16:32)
[2016-10-17] MEDS: METFORMIN HCL 500 MG TABLET PO SCH ×2 (08:18→17:06)
[2016-10-17] MEDS: LEVOFLOXACIN 500 MG/D5W RTU 100 ML IV SCH (09:50)
[2016-10-17] MEDS: PHENYTOIN SODIUM EXTENDED 100 MG CAPSULE PO SCH (09:51)
[2016-10-17] MEDS: NICOTINE 21 MG/24 HR PATCH.TD24 TD SCH (09:51)
[2016-10-17] MEDS: METOPROLOL SUCCINATE 50 MG TAB.SR.24H PO SCH (09:52)
[2016-10-17] MEDS: ACETAMINOPHEN WITH CODEINE #3 TABLET PO SCH ×3 (09:53→17:05)
[2016-10-17] MEDS: SITAGLIPTIN PHOSPHATE 50 MG TABLET PO SCH (09:53)
[2016-10-17] MEDS ORDERED: VENLAFAXINE HCL 75 MG CAP.SR.24H PO SCH (10:00)
--- NOTE | 2016-10-17 16:32 | PDOC PROGRESS REPORT ---
Subjective Progress Note for:: 10/17/16 Subjective:: He is feeling better. Dyspnea has decreased. He is being monitored for possible alcohol withdrawal.We will taper off the steroids. Physical Exam Vital Signs: Temp Pulse Resp BP Pulse Ox 97.6 F 74 16 124/82 93 10/17/16 12:00 10/17/16 13:58 10/17/16 13:58 10/17/16 12:00 10/17/16 13:58 Intake & Output 10/16/16 10/17/16 10/18/16 06:59 06:59 06:59 Intake Total 7349 Output Total 2350 Balance 4999 General appearance: PRESENT: well-developed, well-nourished Head exam: PRESENT: atraumatic, normocephalic Eye exam: PRESENT: EOMI, PERRLA Ear exam: PRESENT: TM's normal bilaterally Mouth exam: PRESENT: neck supple Respiratory exam: PRESENT: decreased breath sounds, symmetrical Cardiovascular exam: PRESENT: +S1, +S2 Pulses: PRESENT: +2 pedal pulses bilateral Vascular exam: PRESENT: normal capillary refill GI/Abdominal exam: PRESENT: normal bowel sounds, soft Rectal exam: PRESENT: deferred Neurological exam: PRESENT: alert, awake, oriented to person, oriented to place , oriented to time Psychiatric exam: PRESENT: normal mood Results Laboratory Results: 10/17/16 04:50 10/17/16 04:50 10/17/16 10/17/16 04:50 04:50 WBC 5.8 RBC 3.09 L Hgb 12.9 L Hct 37.0 L MCV 120 H MCH 41.6 H MCHC 34.8 RDW 13.8 Plt Count 135 L Seg Neutrophils % 79.6 H Lymphocytes % 14.0 Monocytes % 6.2 Eosinophils % 0.0 Basophils % 0.2 Absolute Neutrophils 4.6 Absolute Lymphocytes 0.8 Absolute Monocytes 0.4 Absolute Eosinophils 0.0 Absolute Basophils 0.0 Sodium 135.2 L Potassium 4.8 Chloride 99 Carbon Dioxide 26 Anion Gap 10 BUN 8 Creatinine 0.40 L Est GFR ( Amer) > 60 Est GFR (Non-Af Amer) > 60 Glucose 151 H Calcium 8.8 Total Bilirubin 0.4 AST 42 ALT 44 Alkaline Phosphatase 166 H Total Protein 6.6 Albumin 3.7 Triglycerides 66 Cholesterol 202.80 H LDL Cholesterol Direct 99 VLDL Cholesterol 13.0 HDL Cholesterol 77 Impressions: Chest X-Ray 10/16/16 00:30 IMPRESSION: New small right basilar atelectasis or scar. Chest/Abdomen CTA 10/16/16 07:14 IMPRESSION: 1. Limited study, as above. While there is no central embolus detected, peripheral clot cannot be excluded. 2. Right lower lobe findings to and bronchial wall thickening and mucous plugging with patchy airspace disease may be relatively chronic. Shifting infiltrates otherwise suggests a component of active infection/ inflammation. Assessment & Plan - Diagnosis (1) COPD (chronic obstructive pulmonary disease) with acute bronchitis Is this a current diagnosis for this admission?: YesPlan: Ct with oxygen by N/C at 2 L/min;Decrease Solumedrol 60 mg q6h IV; Levaquin 500 mg qd IV; Duonebs q4h prn; Xopenex nebs 1.25 mg q6h. (2) Pneumonia Qualifiers: Pneumonia type: due to unspecified organism Laterality: right Lung location: unspecified part of lung Qualified Code(s): J18.9 - Pneumonia, unspecified organism Is this a current diagnosis for this admission?: YesPlan: Ct with Levaquin 500 mg qd IV; Tylenol 650 mg q6h prn; F/u sputum and blood cultures. (3) Alcohol abuse Is this a current diagnosis for this admission?: YesPlan: Ct with 4 hourly neurochecks; Seizure and fall precautions; ct with Ativan as per protocol; Ct with IV fluids as per protocol; ct with Thiamine 100mg qd po; Folic acid and Multvitamin as per protocol.. (4) Diabetes mellitus type 2 in nonobese Is this a current diagnosis for this admission?: YesPlan: t with Metformin 10o mg BID po; Januvia 100 mg qd po; Accucheck QAC, QHS with slidding scale with Humalog insulin OM protocol; 1800 calorie ADA diet. (5) Hypertension Is this a current diagnosis for this admission?: YesPlan: Ct with Toprol XL 100 mg qd po; 2 g sodium diet. (6) Seizures Is this a current diagnosis for this admission?: YesPlan: Ct with Phenobarb 64.8 mg TID po; Dilantin 300 mg qd po. Seizure/Fall precautions; 4 hourly neurochecks (7) Hyperlipidemia Is this a current diagnosis for this admission?: YesPlan: Ct with 200 mg cholesterol diet. (8) Lumbago Is this a current diagnosis for this admission?: YesPlan: Ct with Tylenol#3 1 tab q8h po prn. (9) Reflux esophagitis Is this a current diagnosis for this admission?: YesPlan: Ct with Prevacid 30 mg qd po since Omeprazole is not in our formulary. 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 (11) Vitamin D deficiency Is this a current diagnosis for this admission?: YesPlan: Ct with Vitamin D 2000iu qd po. (12) Anxiety disorder Qualifiers: Anxiety disorder type: generalized anxiety disorder Qualified Code(s ): F41.1 - Generalized anxiety disorder Is this a current diagnosis for this admission?: YesPlan: Hold Xanax; Ct with Ativan as per protocol. (13) Depression Is this a current diagnosis for this admission?: YesPlan: Ct with Effexor XR 150 mg qd po. (14) DVT prophylaxis Is this a current diagnosis for this admission?: YesPlan: Ct with Lovenox 40 mg qd subcut; SCD.
[2016-10-17] MEDS: ABACAVIR PO SCH (21:40)
[2016-10-17] MEDS: LAMIVUDINE PO SCH (21:40)
[2016-10-17] MEDS: ZIDOVUDINE PO SCH (21:40)
[2016-10-17] MEDS: VENLAFAXINE HCL 75 MG CAP.SR.24H PO SCH (21:41)
[2016-10-17] MEDS: FOLIC ACID 1 MG TABLET PO SCH (21:41)
[2016-10-17] MEDS: THIAMINE HCL 100 MG TABLET PO SCH (21:41)
[2016-10-17] MEDS: MULTIVITAMIN TABLET PO SCH (21:41)
[2016-10-17] MEDS: IPRATROPIUM/ALBUTEROL 0.5-2.5 MG/3 ML AMPUL NEB PRN (22:06)
[2016-10-18] MEDS: LEVALBUTEROL HCL NEB 1.25 MG/3 ML AMPUL NEB SCH ×4 (01:57→20:24)
[2016-10-18] MEDS: PHENOBARBITAL 64.8 MG TABLET PO SCH ×3 (05:49→22:17)
[2016-10-18] MEDS: METHYLPREDNISOLONE INJ 40 MG/1 ML SDV IV SCH ×3 (05:49→22:18)
[2016-10-18] MEDS: LANSOPRAZOLE 30 MG TAB.RAP.DR PO SCH (05:49)
[2016-10-18 07:12] LABS: ABSOLUTE MONOCYTES (AUTO) 0.5 10^3/uL (0.1-1.4); ABSOLUTE NEUT (AUTO) 3.7 10^3/uL (1.7-8.2); BASOPHILS % (AUTO) 0.1 % (0-2); EOSINOPHILS % (AUTO) 0.1 % (0-6); HEMATOCRIT 35.7 % (37.9-51.0); HEMOGLOBIN 12.4 g/dL (13.5-17.0); HGB HCT DIFFERENCE 1.5; LYMPHOCYTES % (AUTO) 32.7 % (13-45); MEAN CORPUSCULAR HGB CONC 34.7 g/dL (32.0-36.0); MEAN CORPUSCULAR VOLUME 121 fl (80-97); MONOCYTES % (AUTO) 8.1 % (3-13); RED BLOOD COUNT 2.95 10^6/uL (4.35-5.55); RED CELL DISTRIBUTION WIDTH 13.6 % (11.5-14.0); WHITE BLOOD COUNT 6.2 10^3/uL (4.0-10.5)
[2016-10-18 07:21] LABS: ALANINE AMINOTRANSFERASE 44 U/L (21-72); ALBUMIN 3.6 g/dL (3.5-5.0); ALKALINE PHOSPHATASE 124 U/L (38-126); ANION GAP 8 (5-19); ASPARTATE AMINO TRANSFERASE 46 U/L (17-59); BILIRUBIN,DIRECT 0.3 mg/dL (0.0-0.4); BILIRUBIN,TOTAL 0.5 mg/dL (0.2-1.3); BLOOD UREA NITROGEN 9 mg/dL (7-20); CALCIUM 8.8 mg/dL (8.4-10.2); CARBON DIOXIDE 26 mmol/L (22-30); CHLORIDE 100 mmol/L (98-107); CREATININE RESULT 0.51 mg/dL (0.52-1.25); GLUCOSE 115 mg/dL (75-110); POTASSIUM 4.7 mmol/L (3.6-5.0); SODIUM 133.8 mmol/L (137-145); TOTAL PROTEIN 6.5 g/dL (6.3-8.2)
[2016-10-18] MEDS: ENOXAPARIN SODIUM INJ 40 MG/0.4 ML DISP.SYRIN SUBCUT SCH (07:56)
[2016-10-18 08:01] LABS: OVALOCYTES 1+; POIKILOCYTOSIS 1+
[2016-10-18] MEDS: INSULIN LISPRO 100 UNIT/ML 3 ML VIAL SUBCUT SCH ×3 (08:02→16:35)
[2016-10-18] MEDS: METFORMIN HCL 500 MG TABLET PO SCH ×2 (08:02→16:35)
[2016-10-18] MEDS: SITAGLIPTIN PHOSPHATE 50 MG TABLET PO SCH (10:30)
[2016-10-18] MEDS: METOPROLOL SUCCINATE 50 MG TAB.SR.24H PO SCH (10:30)
[2016-10-18] MEDS: PHENYTOIN SODIUM EXTENDED 100 MG CAPSULE PO SCH (10:30)
[2016-10-18] MEDS: ACETAMINOPHEN WITH CODEINE #3 TABLET PO SCH ×3 (10:31→17:31)
[2016-10-18] MEDS: ZIDOVUDINE PO SCH ×2 (10:31→22:18)
[2016-10-18] MEDS: LEVOFLOXACIN 500 MG/D5W RTU 100 ML IV SCH (10:31)
[2016-10-18] MEDS: ABACAVIR PO SCH ×2 (10:31→22:18)
[2016-10-18] MEDS: NICOTINE 21 MG/24 HR PATCH.TD24 TD SCH (10:31)
[2016-10-18] MEDS: LAMIVUDINE PO SCH ×2 (10:31→22:18)
[2016-10-18 15:27] LABS: PATH REVIEW PATHOLOGIST REVIEWED
--- NOTE | 2016-10-18 17:14 | PDOC PROGRESS REPORT ---
Subjective Progress Note for:: 10/18/16 Subjective:: He is feeling better. Dyspnea has decreased. He is being monitored for possible alcohol withdrawal.We will taper off the steroids.For possible discharge home tomorrow. Physical Exam Vital Signs: Temp Pulse Resp BP Pulse Ox 99.2 F 62 16 141/83 H 96 10/18/16 07:18 10/18/16 14:12 10/18/16 14:12 10/18/16 07:18 10/18/16 14:12 Intake & Output 10/17/16 10/18/16 10/19/16 06:59 06:59 06:59 Intake Total 7349 4145 Output Total 2350 1800 Balance 4999 2345 Weight 71.2 kg General appearance: PRESENT: no acute distress, well-developed, well-nourished Head exam: PRESENT: atraumatic, normocephalic Eye exam: PRESENT: conjunctiva pink, EOMI, PERRLA. ABSENT: scleral icterus Ear exam: PRESENT: normal external ear exam Mouth exam: PRESENT: moist, tongue midline Neck exam: PRESENT: full ROM. ABSENT: carotid bruit, JVD, lymphadenopathy, thyromegaly Respiratory exam: PRESENT: crackles, decreased breath sounds Cardiovascular exam: PRESENT: RRR, +S1, +S2. ABSENT: diastolic murmur, rubs, systolic murmur Pulses: PRESENT: normal dorsalis pedis pul, +2 pedal pulses bilateral Vascular exam: PRESENT: normal capillary refill GI/Abdominal exam: PRESENT: normal bowel sounds, soft. ABSENT: distended, guarding, mass, organolmegaly, rebound, tenderness Rectal exam: PRESENT: deferred Musculoskeletal exam: PRESENT: ambulatory, full ROM Neurological exam: PRESENT: alert, awake, oriented to person, oriented to place , oriented to time, oriented to situation, CN II-XII grossly intact. ABSENT: motor sensory deficit Psychiatric exam: PRESENT: appropriate affect, normal mood. ABSENT: homicidal ideation, suicidal ideation Skin exam: PRESENT: dry, intact, warm. ABSENT: cyanosis, rash Results Laboratory Results: 10/18/16 06:39 10/18/16 06:39 10/18/16 10/18/16 06:39 06:39 WBC 6.2 RBC 2.95 L Hgb 12.4 L Hct 35.7 L MCV 121 H MCH 42.0 H MCHC 34.7 RDW 13.6 Plt Count 132 L Seg Neutrophils % 59.0 Lymphocytes % 32.7 Monocytes % 8.1 Eosinophils % 0.1 Basophils % 0.1 Absolute Neutrophils 3.7 Absolute Lymphocytes 2.0 Absolute Monocytes 0.5 Absolute Eosinophils 0.0 Absolute Basophils 0.0 Sodium 133.8 L Potassium 4.7 Chloride 100 Carbon Dioxide 26 Anion Gap 8 BUN 9 Creatinine 0.51 L Est GFR ( Amer) > 60 Est GFR (Non-Af Amer) > 60 Glucose 115 H Calcium 8.8 Total Bilirubin 0.5 AST 46 ALT 44 Alkaline Phosphatase 124 Total Protein 6.5 Albumin 3.6 Impressions: Chest X-Ray 10/16/16 00:30 IMPRESSION: New small right basilar atelectasis or scar. Chest/Abdomen CTA 10/16/16 07:14 IMPRESSION: 1. Limited study, as above. While there is no central embolus detected, peripheral clot cannot be excluded. 2. Right lower lobe findings to and bronchial wall thickening and mucous plugging with patchy airspace disease may be relatively chronic. Shifting infiltrates otherwise suggests a component of active infection/ inflammation. Assessment & Plan - Diagnosis (1) COPD (chronic obstructive pulmonary disease) with acute bronchitis Is this a current diagnosis for this admission?: YesPlan: Ct with oxygen by N/C at 2 L/min;Decrease Solumedrol 40 mg q8h IV; Levaquin 500 mg qd IV; Duonebs q4h prn; Xopenex nebs 1.25 mg q6h. (2) Pneumonia Qualifiers: Pneumonia type: due to unspecified organism Laterality: right Lung location: unspecified part of lung Qualified Code(s): J18.9 - Pneumonia, unspecified organism Is this a current diagnosis for this admission?: YesPlan: Ct with Levaquin 500 mg qd IV; Tylenol 650 mg q6h prn; F/u sputum and blood cultures. (3) Alcohol abuse Is this a current diagnosis for this admission?: YesPlan: Ct with 4 hourly neurochecks; Seizure and fall precautions; ct with Ativan as per protocol; Ct with IV fluids as per protocol; ct with Thiamine 100mg qd po; Folic acid and Multvitamin as per protocol.. (4) Diabetes mellitus type 2 in nonobese Is this a current diagnosis for this admission?: YesPlan: t with Metformin 10o mg BID po; Januvia 100 mg qd po; Accucheck QAC, QHS with slidding scale with Humalog insulin OM protocol; 1800 calorie ADA diet. (5) Hypertension Is this a current diagnosis for this admission?: YesPlan: Ct with Toprol XL 100 mg qd po; 2 g sodium diet. (6) Seizures Is this a current diagnosis for this admission?: YesPlan: Ct with Phenobarb 64.8 mg TID po; Dilantin 300 mg qd po. Seizure/Fall precautions; 4 hourly neurochecks (7) Hyperlipidemia Is this a current diagnosis for this admission?: YesPlan: Ct with 200 mg cholesterol diet. (8) Lumbago Is this a current diagnosis for this admission?: YesPlan: Ct with Tylenol#3 1 tab q8h po prn. (9) Reflux esophagitis Is this a current diagnosis for this admission?: YesPlan: Ct with Prevacid 30 mg qd po since Omeprazole is not in our formulary. 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 (11) Vitamin D deficiency Is this a current diagnosis for this admission?: YesPlan: Ct with Vitamin D 2000iu qd po. (12) Anxiety disorder Qualifiers: Anxiety disorder type: generalized anxiety disorder Qualified Code(s ): F41.1 - Generalized anxiety disorder Is this a current diagnosis for this admission?: YesPlan: Hold Xanax; Ct with Ativan as per protocol. (13) Depression Is this a current diagnosis for this admission?: YesPlan: Ct with Effexor XR 150 mg qd po. (14) DVT prophylaxis Is this a current diagnosis for this admission?: YesPlan: Ct with Lovenox 40 mg qd subcut; SCD.
[2016-10-18] MEDS ORDERED: METHYLPREDNISOLONE INJ 125 MG/2 ML SDV IV SCH ×2 (17:15→18:00)
[2016-10-18] MEDS: MULTIVITAMIN TABLET PO SCH (22:17)
[2016-10-18] MEDS: LORAZEPAM 1 MG TABLET (TAPER DOSING) PO SCH (22:17)
[2016-10-18] MEDS: THIAMINE HCL 100 MG TABLET PO SCH (22:17)
[2016-10-18] MEDS: VENLAFAXINE HCL 75 MG CAP.SR.24H PO SCH (22:17)
[2016-10-18] MEDS: FOLIC ACID 1 MG TABLET PO SCH (22:17)
[2016-10-19] MEDS: IPRATROPIUM/ALBUTEROL 0.5-2.5 MG/3 ML AMPUL NEB PRN (00:36)
[2016-10-19] MEDS: LORAZEPAM 1 MG TABLET (TAPER DOSING) PO SCH ×3 (02:03→14:52)
[2016-10-19] MEDS: LEVALBUTEROL HCL NEB 1.25 MG/3 ML AMPUL NEB SCH ×3 (02:40→13:00)
[2016-10-19] MEDS: METHYLPREDNISOLONE INJ 40 MG/1 ML SDV IV SCH ×2 (05:47→14:43)
[2016-10-19] MEDS: LANSOPRAZOLE 30 MG TAB.RAP.DR PO SCH (05:47)
[2016-10-19] MEDS: PHENOBARBITAL 64.8 MG TABLET PO SCH ×2 (05:47→14:44)
[2016-10-19 06:31] LABS: ALANINE AMINOTRANSFERASE 56 U/L (21-72); ALBUMIN 3.9 g/dL (3.5-5.0); ALKALINE PHOSPHATASE 125 U/L (38-126); ANION GAP 12 (5-19); ASPARTATE AMINO TRANSFERASE 67 U/L (17-59); BILIRUBIN,DIRECT 0.2 mg/dL (0.0-0.4); BILIRUBIN,TOTAL 0.4 mg/dL (0.2-1.3); BLOOD UREA NITROGEN 13 mg/dL (7-20); CALCIUM 8.9 mg/dL (8.4-10.2); CARBON DIOXIDE 27 mmol/L (22-30); CHLORIDE 95 mmol/L (98-107); CREATININE RESULT 0.53 mg/dL (0.52-1.25); GLUCOSE 102 mg/dL (75-110); POTASSIUM 4.4 mmol/L (3.6-5.0); SODIUM 133.7 mmol/L (137-145); TOTAL PROTEIN 6.7 g/dL (6.3-8.2)
[2016-10-19 06:50] LABS: ABSOLUTE LYMPHOCYTES (AUTO) 2.4 10^3/uL (0.5-4.7); ABSOLUTE MONOCYTES (AUTO) 0.5 10^3/uL (0.1-1.4); ABSOLUTE NEUT (AUTO) 2.8 10^3/uL (1.7-8.2); BASOPHILS % (AUTO) 0.2 % (0-2); EOSINOPHILS % (AUTO) 0.5 % (0-6); HEMATOCRIT 37.7 % (37.9-51.0); HGB HCT DIFFERENCE 1.3; MEAN CORPUSCULAR HEMOGLOBIN 41.3 pg (27.0-33.4); MEAN CORPUSCULAR HGB CONC 34.4 g/dL (32.0-36.0); MEAN CORPUSCULAR VOLUME 120 fl (80-97); MONOCYTES % (AUTO) 9.3 % (3-13); RED BLOOD COUNT 3.14 10^6/uL (4.35-5.55); RED CELL DISTRIBUTION WIDTH 13.7 % (11.5-14.0); WHITE BLOOD COUNT 5.8 10^3/uL (4.0-10.5)
[2016-10-19 07:12] LABS: OVALOCYTES SLIGHT
[2016-10-19] MEDS: METFORMIN HCL 500 MG TABLET PO SCH (07:53)
[2016-10-19] MEDS: ENOXAPARIN SODIUM INJ 40 MG/0.4 ML DISP.SYRIN SUBCUT SCH (08:00)
[2016-10-19] MEDS: ACETAMINOPHEN 325 MG TABLET PO PRN (08:04)
[2016-10-19] MEDS: PHENYTOIN SODIUM EXTENDED 100 MG CAPSULE PO SCH (09:34)
[2016-10-19] MEDS: SITAGLIPTIN PHOSPHATE 50 MG TABLET PO SCH (09:35)
[2016-10-19] MEDS: NICOTINE 21 MG/24 HR PATCH.TD24 TD SCH (09:35)
[2016-10-19] MEDS: ACETAMINOPHEN WITH CODEINE #3 TABLET PO SCH ×2 (09:35→14:43)
[2016-10-19] MEDS: LEVOFLOXACIN 500 MG/D5W RTU 100 ML IV SCH (09:36)
[2016-10-19] MEDS: ZIDOVUDINE PO SCH (09:38)
[2016-10-19] MEDS: LAMIVUDINE PO SCH (09:38)
[2016-10-19] MEDS: ABACAVIR PO SCH (09:38)
[2016-10-19] MEDS: METOPROLOL SUCCINATE 50 MG TAB.SR.24H PO SCH (09:39)
--- NOTE | 2016-10-19 10:13 | PDOC DISCHARGE SUMMARY ---
General - Admit/Disc Date/PCP Admission Date/Primary Care Provider: 10/16/16 12:56 PHILIPPE NAZARIO Discharge Date: 10/19/16 - Discharge Diagnosis (1) COPD (chronic obstructive pulmonary disease) with acute bronchitis Is this a current diagnosis for this admission?: Yes (2) Pneumonia Is this a current diagnosis for this admission?: Yes (3) Alcohol abuse Is this a current diagnosis for this admission?: Yes (4) Diabetes mellitus type 2 in nonobese Is this a current diagnosis for this admission?: Yes (5) Hypertension Is this a current diagnosis for this admission?: Yes (6) Seizures Is this a current diagnosis for this admission?: Yes (7) Hyperlipidemia Is this a current diagnosis for this admission?: Yes (8) Lumbago Is this a current diagnosis for this admission?: Yes (9) Reflux esophagitis Is this a current diagnosis for this admission?: Yes (10) 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 Is this a current diagnosis for this admission?: Yes (11) Vitamin D deficiency Is this a current diagnosis for this admission?: Yes (12) Anxiety disorder Is this a current diagnosis for this admission?: Yes (13) Depression Is this a current diagnosis for this admission?: Yes (14) DVT prophylaxis Is this a current diagnosis for this admission?: Yes - Additional Information Home Medications: Abacavir/Lamivudine/Zidovudine [Trizivir Tablet] 1 tab PO Q12 10/16/16 Acetaminophen with Codeine [Acetaminophen-Cod #3 Tablet] 1 tab PO Q8HP PRN 10/16 Albuterol Sulfate [Albuterol Sulfate 2.5mg/3 mL] 2.5 mg PO TID 10/16/16 Albuterol Sulfate [Ventolin HFA MDI 18 GM] 2 puff IH Q4HP PRN 10/16/16 Alprazolam [Xanax] 1 mg PO Q8 10/16/16 Atorvastatin Calcium [Lipitor 40 mg Tablet] 40 mg PO DAILY 10/16/16 Diphenhydramine HCl [Benadryl 25 mg Capsule] 25 mg PO BIDP PRN 10/16/16 Diphenoxylate HCl/Atropine [Lomotil 2.5-0.025 mg Tablet] 1 tab PO QIDP PRN 10/16 Ergocalciferol (Vitamin D2) [Vitamin D2] 50,000 unit PO COLLINS@1000 10/16/16 Hydroxyzine HCl [Atarax 25 mg Tablet] 25 mg PO Q8HP PRN 10/16/16 Metformin HCl [Glucophage] 1,000 mg PO BIDACBS 10/16/16 Metoprolol Succinate [Toprol XL 100 mg Tablet] 100 mg PO DAILY 10/16/16 Omeprazole 40 mg PO DAILY 10/16/16 Phenobarbital [Phenobarbital 64.8 mg Tablet] 64.8 mg PO Q8 10/16/16 Phenytoin Sodium Extended [Dilantin] 300 mg PO DAILY 10/16/16 Promethazine HCl [Phenergan 25 mg Tablet] 25 mg PO BIDP PRN 10/16/16 Sitagliptin Phosphate [Januvia] 100 mg PO DAILY 10/16/16 Terbinafine HCl [Lamisil 250 mg Tablet] 250 mg PO DAILY 10/16/16 Venlafaxine HCl [Effexor Xr] 150 mg PO [id number] 10/16/16 History of Present Illness History of Present Illness: REGINA LEAL is a 56 year old male with hx of DM2/HTN/Hyperlipidemia/DM neuropathy/COPD/HIV/AIDS on HAART/Seizure disorder/Chronic back pain/ Osteoarthritis of knees/GERD/Vitamin D def./Depression/Anxiety disorder/Chronic smoker.He was in his baseline un til day of presentation when he went to a neighbor's house and drank a lot of beer and became intoxicated. He also started having dyspnea and cough. He was given nebulization and steroids by EMS and he felt better. At ER his oxygen saturation was 85% on RA despite nebulizations and Levaquin.He ws admitted for COPD exacerbation/Pneumonia and Alcohol intoxication. Hospital Course Hospital Course: 56 yr old man who was admitted for COPD exacerbation/Pneumonia and Alcohol intoxication. He was managed with alcohol withdrawal protocol and COPD and Pneumonia were treated as well. He is stable now and back to baseline. He will be discharged home today to follow up with PCP within 1 week. Physical Exam Vital Signs: Temp Pulse Resp BP Pulse Ox 98.6 F 64 16 140/95 H 96 10/19/16 08:00 10/19/16 08:00 10/19/16 08:00 10/19/16 08:00 10/19/16 08:00 Intake & Output 0410/19/16 10/20/16 06:59 06:59 06:59 Intake Total 4145 2110 Output Total 1800 Balance 2345 2110 Weight 71.2 kg 72.4 kg General appearance: PRESENT: no acute distress, well-developed, well-nourished Head exam: PRESENT: atraumatic, normocephalic Eye exam: PRESENT: EOMI, PERRLA Ear exam: PRESENT: normal external ear exam, TM's normal bilaterally Mouth exam: PRESENT: moist, neck supple Respiratory exam: PRESENT: clear to auscultation helen, symmetrical Cardiovascular exam: PRESENT: +S1, +S2 Pulses: PRESENT: normal dorsalis pedis pul, +2 pedal pulses bilateral Vascular exam: PRESENT: normal capillary refill GI/Abdominal exam: PRESENT: normal bowel sounds, soft Rectal exam: PRESENT: deferred Extremities exam: PRESENT: full ROM Musculoskeletal exam: PRESENT: ambulatory, full ROM Neurological exam: PRESENT: alert, awake, oriented to person, oriented to place , oriented to time, CN II-XII grossly intact Psychiatric exam: PRESENT: normal mood Results Laboratory Results: 10/19/16 05:25 10/19/16 05:25 10/18/16 10/19/16 10/19/16 06:39 05:25 05:25 WBC 6.2 5.8 RBC 2.95 L 3.14 L Hgb 12.4 L 13.0 L Hct 35.7 L 37.7 L MCV 121 H 120 H MCH 42.0 H 41.3 H MCHC 34.7 34.4 RDW 13.6 13.7 Plt Count 132 L 140 L Seg Neutrophils % 59.0 48.0 Lymphocytes % 32.7 42.0 Monocytes % 8.1 9.3 Eosinophils % 0.1 0.5 Basophils % 0.1 0.2 Absolute Neutrophils 3.7 2.8 Absolute Lymphocytes 2.0 2.4 Absolute Monocytes 0.5 0.5 Absolute Eosinophils 0.0 0.0 Absolute Basophils 0.0 0.0 Sodium 133.7 L Potassium 4.4 Chloride 95 L Carbon Dioxide 27 Anion Gap 12 BUN 13 Creatinine 0.53 Est GFR ( Amer) > 60 Est GFR (Non-Af Amer) > 60 Glucose 102 Calcium 8.9 Total Bilirubin 0.4 AST 67 H ALT 56 Alkaline Phosphatase 125 Total Protein 6.7 Albumin 3.9 Impressions: Chest X-Ray 04/17/17 00:30 IMPRESSION: New small right basilar atelectasis or scar. Chest/Abdomen CTA 10/16/16 07:14 IMPRESSION: 1. Limited study, as above. While there is no central embolus detected, peripheral clot cannot be excluded. 2. Right lower lobe findings to and bronchial wall thickening and mucous plugging with patchy airspace disease may be relatively chronic. Shifting infiltrates otherwise suggests a component of active infection/ inflammation.
[2016-10-19 12:09] VITALS: BP 150/84
[2016-10-19] MEDS ORDERED: DEXTROSE 40% GEL 15 GM TUBE PO PRN (12:13)
[2016-10-19] MEDS ORDERED: DEXTROSE 50%-WATER SYRINGE 12.5 GM/25 ML DOSE IV PRN (12:13)
[2016-10-19] MEDS ORDERED: DEXTROSE 40% GEL 15 GM TUBE X 2 PO PRN (12:13)
[2016-10-19] MEDS ORDERED: GLUCAGON,HUMAN RECOMB 1 MG INJ IM PRN (12:13)
[2016-10-19] MEDS ORDERED: DEXTROSE 50%-WATER SYRINGE 25 GM/50 ML DOSE IV PRN (12:13)
[2016-10-19] MEDS ORDERED: INSULIN LISPRO 100 UNIT/ML 3 ML VIAL SUBCUT PRN (12:13)
[2016-10-20] MEDS ORDERED: LEVOFLOXACIN 500 MG TABLET PO SCH (10:00)
== END 2016-10-19 15:00 | disposition home or self-care (01) | DRG 975 ==
LOC: ER 00:03 → EH 06:35 → 4S 11:38 → OBSVTOIN 12:56
PROVIDERS: ADMIT Internal Medicine; ATTEND Internal Medicine
DX: B20 Human immunodeficiency virus [HIV] disease (principal); J18.9 Pneumonia, unspecified organism; J44.1 Chronic obstructive pulmonary disease with (acute) exacerbation; J44.0 Chronic obstructive pulmonary disease with (acute) lower respiratory infection; J20.9 Acute bronchitis, unspecified; F10.120 Alcohol abuse with intoxication, uncomplicated; E78.5 Hyperlipidemia, unspecified; I10 Essential (primary) hypertension; K21.0 Gastro-esophageal reflux disease with esophagitis; E11.40 Type 2 diabetes mellitus with diabetic neuropathy, unspecified; G40.909 Epilepsy, unspecified, not intractable, without status epilepticus; N40.0 Benign prostatic hyperplasia without lower urinary tract symptoms; M54.5 Low back pain; F32.9 Major depressive disorder, single episode, unspecified; F41.1 Generalized anxiety disorder; F17.210 Nicotine dependence, cigarettes, uncomplicated; Y90.8 Blood alcohol level of 240 mg/100 ml or more; Z79.84 Long term (current) use of oral hypoglycemic drugs; Z79.891 Long term (current) use of opiate analgesic; Z79.51 Long term (current) use of inhaled steroids; Z79.899 Other long term (current) drug therapy; Z88.0 Allergy status to penicillin; Z91.030 Bee allergy status; Z91.048 Other nonmedicinal substance allergy status
CPT/HCPCS: 36415; 71010; 71020; 71275; 80048; 80053; 80061; 80307; 82962; 83036; 84484; 85025; 93005; 93010; 94640; 96361; 96365; 96366; 96375; 99285; J1650; J1815; J1956; J2060; J2920; J2930; J3475; J3490; J7030; J7040; J7620

== ENCOUNTER 2017-07-08 04:39 | Inpatient (IN) | payer MEDICARE, MEDICAID ==
[2017-07-08] MEDS ORDERED: ASPIRIN 81 MG TABLET, CHEWABLE PO ONE (04:41)
[2017-07-08] MEDS ORDERED: ADENOSINE INJ/PF 6 MG/2 ML SDV IV ONE (04:43)
[2017-07-08] MEDS ORDERED: DILTIAZEM HCL INJ 25 MG/5 ML VIAL ONE (04:43)
[2017-07-08] MEDS ORDERED: DILTIAZEM HCL/D5W 125 MG/125 ML RTUINJ IV PRN (04:59)
[2017-07-08] MEDS ORDERED: DILTIAZEM HCL INJ 25 MG/5 ML VIAL IV ONE (04:59)
--- NOTE | 2017-07-08 04:59 | ER Document Report ---
ED Cardiac - General Mode of Arrival: Medic Information source: Patient, Emergency Med Personnel TRAVEL OUTSIDE OF THE [place] IN LAST 30 DAYS: No - HPI Patient complains to provider of: Shortness of breath Use of: Alcohol, Other - THC Associated symptoms: Other - see notes above <CARLIN LANDAVERDE - Last Filed: 07/08/17 05:51> <JASIELAILYNDIANE - Last Filed: 07/08/17 06:32> - General Stated Complaint: HEART PROBLEM Time Seen by Provider: 07/08/17 04:47 Notes: 57 year old male with history of diabetes, hypertension, hyperlipidemia, COPD, and asthma presents to the ED via EMS complaining of shortness of breath and chest pain. Patient was sitting watching television during onset of his shortness of breath. Patient reports to drinking alcohol and smoking marijuana 6 hours ago. Per EMS, the patient was given 6 units of Adenosine, but when the patient did not respond to it he was given 12 units which brought his heart rate down to the 90s only temporarily. Patient states that he thinks he has a history of a blood clot to the lungs, but denies being on any blood thinning medications other than low dose aspirin which he does not take. Patient is HIV positive with an undetectable viral load 6 weeks ago and a CD4 count greater than 2000 3 months ago. (CARLIN LANDAVERDE) - Related Data Allergies/Adverse Reactions: chlorpromazine Allergy (Verified 05/05/17 14:47) Penicillins Allergy (Verified 05/05/17 14:47) ants Allergy (Uncoded 05/05/17 14:47) bees Allergy (Uncoded 05/05/17 14:47) Past Medical History - General Information source: Patient - Social History Smoking Status: Former Smoker Chew tobacco use (# tins/day): No - former Frequency of alcohol use: Social Drug Abuse: Marijuana Family History: Arthritis, CAD, DM, Hyperlipidemia, Hypertension, Malignancy. denies: CVA, Thyroid Disfunction - Past Medical History Cardiac Medical History: Reports: Hx Hypercholesterolemia, Hx Hypertension, Hx Heart Murmur Denies: Hx Heart Attack Pulmonary Medical History: Reports: Hx Asthma, Hx Bronchitis, Hx COPD, Hx Pneumonia Denies: Hx Intubation, Hx Sleep Apnea, Hx Tuberculosis Neurological Medical History: Reports: Hx Migraine, Hx Seizures. Denies: Hx Cerebrovascular Accident Endocrine Medical History: Reports: Hx Diabetes Mellitus Type 2. Denies: Hx Hyperthyroidism, Hx Hypothyroidism Renal/ Medical History: Reports: Hx Benign Prostatic Hyperplasia. Denies: Hx Peritoneal Dialysis GI Medical History: Reports: Hx Gastritis, Hx Gastroesophageal Reflux Disease, Hx Irritable Bowel, Hx Colonoscopy. Denies: Hx Hepatitis, Hx Hiatal Hernia, Hx Endoscopy Musculoskeltal Medical History: Reports Hx Arthritis, Reports Hx Musculoskeletal Deformity, Reports Hx Musculoskeletal Trauma Psychiatric Medical History: Reports: Hx Depression Traumatic Medical History: Reports: Hx Fractures - leg both Infectious Medical History: Reports: Hx HIV. Denies: Hx Hepatitis Past Surgical History: Reports: Hx Orthopedic Surgery - multiple leg surgeries ons left shoulder surgery. Denies: Hx Pacemaker - Immunizations Immunizations up to date: Yes Hx Diphtheria, Pertussis, Tetanus Vaccination: Yes Hx Pneumococcal Vaccination: 06/01/11 <CARLIN LANDAVERDE - Last Filed: 07/08/17 05:51> Review of Systems - Review of Systems Constitutional: No symptoms reported EENT: No symptoms reported Cardiovascular: No symptoms reported Respiratory: See HPI, Short of breath Gastrointestinal: No symptoms reported Genitourinary: No symptoms reported Male Genitourinary: No symptoms reported Musculoskeletal: No symptoms reported Skin: No symptoms reported Hematologic/Lymphatic: No symptoms reported Neurological/Psychological: No symptoms reported -: Yes All other systems reviewed and negative <CARLIN LANDAVERDE - Last Filed: 07/08/17 05:51> Physical Exam <CARLIN LANDAVERDE - Last Filed: 07/08/17 05:51> <DIANE BNOILLA - Last Filed: 07/08/17 06:32> - Vital signs Vitals: Pulse Ox 100 07/08/17 04:40 - Notes Notes: GENERAL: Alert, interacts well. No acute distress. Smells of alcohol. Poor hygiene. HEAD: Normocephalic, atraumatic. EYES: Pupils equal, round, and reactive to light. Extraocular movements intact. ENT: Oral mucosa moist, tongue midline. NECK: Full range of motion. Supple. Trachea midline. LUNGS: Slight crackles to the left lower lobe. No wheezes, rales, or rhonchi. No respiratory distress. HEART: Tachycardia with normal rhythm. No murmurs, gallops, or rubs. ABDOMEN: Soft, non-tender. Non-distended. Bowel sounds present in all 4 quadrants. EXTREMITIES: Moves all 4 extremities spontaneously. No edema, radial and dorsalis pedis pulses 2/4 bilaterally. No cyanosis. NEUROLOGICAL: Alert and oriented x3. Slurred speech. Difficulty hearing out of left ear. PSYCH: Normal affect, normal mood. SKIN: Warm, dry, normal turgor. Diffuse sores throughout patient's back, trunk, and extremities. (CARLIN LANDAVERDE) Course - Laboratory Result Diagrams: 07/08/17 05:15 07/08/17 05:15 <CARLIN LANDAVERDE - Last Filed: 07/08/17 05:51> - Laboratory Result Diagrams: 07/08/17 05:15 07/08/17 05:15 - Transfer of Care Care transferred to following provider: Benigno <DIANE BONILLA - Last Filed: 07/08/17 06:32> - Re-evaluation Re-evalutation: 07/08/17 05:58 On arrival patient had a narrow complex tachycardia, patient had already been given 6 and 12 mg of adenosine by EMS with slowing but no conversion of his tachycardia, there is a lot of baseline artifact it was difficult to identify exactly what rhythm he was in while the narrow complex supraventricular tachycardia slowed, adenosine here slowed his rate long enough for us to identify atrial fibrillation, patient was then given bolus of Cardizem 25 mg and started on a drip of Cardizem at 5, this was quickly increased to a rate of 15 as the patient was having continuing tachycardia into the 140s. Initial EKG showed what appears to be rate related ischemia, repeat EKG after Cardizem shows continuing ischemia but it is improving. While awaiting laboratory studies the patient has become increasingly hypoxic, oxygen was applied, I am concerned for possibility of pulmonary embolism given his hypoxia, tachycardia and chest pain. Review of the records does not reveal any history of atrial fibrillation or pulmonary embolism or DVT. Patient will be sent for CT angiogram, oxygen will be applied. 07/08/17 06:10 Patient did not have significant response to Cardizem drip at 15 mg/h so we are going to increase it to 20 mg/hr. 07/08/17 06:24 Patient denies taking any narcotics tonight although he admits he has some at home, does state he took a Xanax as well as his Dilantin and his phenobarbital. Patient will be given a small dose of Narcan 0.4 mg in case in his confusion he took some of his narcotic pain medications anyway, this is being given as he is becoming increasingly difficult to arouse per nursing. When I just reexamined him he did wake up as soon as I knocked on the door. (DIANE BONILLA) - Vital Signs Vital signs: Temp Pulse Resp BP Pulse Ox 100 07/08/17 04:40 - Laboratory Laboratory results interpreted by me: 07/08/17 07/08/17 05:15 05:15 RBC 4.12 L MCV 118 H MCH 40.1 H Plt Count 99 L PT 11.1 L - EKG Interpretation by Me Additional EKG results interpreted by me: 07/08/17 06:00 Initial EKG shows what appears to be sinus tachycardia although it is difficult to tell at a rate of 139, there are diffuse T-wave inversions in 1, 2, aVL, aVF , V4 through V6. There are also significant ST segment depressions from V2 through V 5. No ST segment elevations normal axis per my interpretation. Repeat EKG shows atrial fibrillation at a rate of 118, no ST segment elevations , there are persistent ST segment depressions in V2 through V4, ST segment depressions in V5 have normalized, there are new T-wave inversions in aVF, T- wave inversions in aVL have normalized, T-wave inversions in lead I and V4 through V6 are persistent, there is a prolonged QT interval, normal R-wave progression per my interpretation. (DIANE BONILLA) - Transfer of Care Notes: 07/08/17 06:31 Patient signed out to Dr. Pelaez, he is aware that CT angiogram is pending looking for pulmonary embolism, aware that patient has some ischemic changes on the EKG but no evidence of STEMI, aware that we are still awaiting all of his chemistries. Aware that patient is about to receive Narcan despite the fact that the patient denies taking any narcotics. He will follow-up on all these test results and continue evaluation and treatment of this patient. Patient is also aware of the transfer of care. (DIANE BONILLA) Discharge <CARLIN LANDAVERDE - Last Filed: 07/08/17 05:51> <DIANE BONILLA - Last Filed: 07/08/17 06:32> - Discharge Referrals: PHILIPPE NAZARIO MD [Primary Care Provider] - Follow up as needed Scribe Documentation - Scribe Written by Scribe:: Kimberli Shelton, 07/08/2017 0517 acting as scribe for :: Alena <CARLIN LANDAVERDE - Last Filed: 07/08/17 05:51>
[2017-07-08] MEDS ORDERED: RINGERS SOLUTION,LACTATED 1,000 ML IV ONE (05:11)
[2017-07-08 05:38] LABS: ABSOLUTE EOSINOPHILS # (AUTO) 0.1 10^3/uL (0.0-0.6); ABSOLUTE LYMPHOCYTES (AUTO) 1.7 10^3/uL (0.5-4.7); ABSOLUTE MONOCYTES (AUTO) 0.5 10^3/uL (0.1-1.4); ABSOLUTE NEUT (AUTO) 3.2 10^3/uL (1.7-8.2); BASOPHILS % (AUTO) 0.7 % (0-2); EOSINOPHILS % (AUTO) 1.3 % (0-6); HEMATOCRIT 48.5 % (37.9-51.0); HEMOGLOBIN 16.5 g/dL (13.5-17.0); LYMPHOCYTES % (AUTO) 31.4 % (13-45); MEAN CORPUSCULAR HEMOGLOBIN 40.1 pg (27.0-33.4); MONOCYTES % (AUTO) 8.5 % (3-13); RED BLOOD COUNT 4.12 10^6/uL (4.35-5.55); RED CELL DISTRIBUTION WIDTH 13.7 % (11.5-14.0); SEGMENTED NEUTROPHILS % (AUTO) 58.1 % (42-78); TOTAL CELLS COUNTED % (AUTO) 100 %; WHITE BLOOD COUNT 5.5 10^3/uL (4.0-10.5)
[2017-07-08 05:42] LABS: INTERNATIONAL RATION (INR) 0.75; PROTHROMBIN TIME 11.1 SEC (11.4-15.4)
[2017-07-08 05:43] LABS: PARTIAL THROMBOPLASTIN TIME 28.8 SEC (23.5-35.8)
[2017-07-08 06:00] LABS: PLATELET COUNT 99 10^3/uL (150-450)
[2017-07-08 06:06] LABS: ANISOCYTOSIS SLIGHT; PLATELET COMMENT DECREASED; PLATELET GIANT PRESENT
[2017-07-08 06:08] LABS: MEAN CORPUSCULAR VOLUME 118 fl (80-97)
[2017-07-08] MEDS ORDERED: NALOXONE HCL INJ/PF 0.4 MG/1 ML SDV IV ONE (06:10)
[2017-07-08 06:27] LABS: ALANINE AMINOTRANSFERASE 75 U/L (21-72); ALBUMIN 5.3 g/dL (3.5-5.0); ALCOHOL 235 mg/dL (NONE DETECTED); ALKALINE PHOSPHATASE 160 U/L (38-126); ASPARTATE AMINO TRANSFERASE 115 U/L (17-59); BILIRUBIN,DIRECT 0.3 mg/dL (0.0-0.4); BILIRUBIN,TOTAL 0.3 mg/dL (0.2-1.3); BLOOD UREA NITROGEN 3 mg/dL (7-20); CALCIUM 9.8 mg/dL (8.4-10.2); CREATINE KINASE 85 U/L (55-170); GLUCOSE 152 mg/dL (75-110); TOTAL PROTEIN 8.8 g/dL (6.3-8.2)
[2017-07-08 06:36] LABS: URINE AMPHETAMINES SCREEN NEGATIVE; URINE BARBITURATES SCREEN UNCONFIRMED POSITIVE; URINE BENZODIAZEPINES SCREEN NEGATIVE; URINE COCAINE SCREEN NEGATIVE; URINE MARIJUANA (THC) SCREEN UNCONFIRMED POSITIVE; URINE METHADONE SCREEN NEGATIVE; URINE PHENCYCLIDINE SCREEN NEGATIVE
[2017-07-08 06:44] LABS: CREATINE KINASE MB 2.7 ng/mL (<4.55)
[2017-07-08] MEDS: DILTIAZEM HCL/D5W 125 MG/125 ML RTUINJ IV PRN ×2 (06:45→17:20)
--- NOTE | 2017-07-08 06:59 | RADIOLOGY REPORT (SQ) ---
EXAM DESCRIPTION: CHEST SINGLE VIEW CLINICAL HISTORY: 57 years, Male, cp COMPARISON: 05/05/2017 FINDINGS: Normal lung volume, clear parenchyma, normal cardiac silhouette, and intact bony thorax. IMPRESSION: No acute cardiopulmonary findings. 2011 [employer]- All Rights Reserved
--- NOTE | 2017-07-08 07:02 | ER Document Report ---
ED General - General Chief Complaint: Arrhythmia Stated Complaint: HEART PROBLEM Time Seen by Provider: 07/08/17 04:47 Mode of Arrival: Medic Information source: Patient, [facility] Records Cannot obtain history due to: Intoxicated Notes: 57 year old male hx of HIV, diabetes, hypertension, hyperlipidemia, COPD, and asthma presents by EMS initially in SVT given 6 and 12 of adenosine which slowed down the heart rate and noted there is in fact atrial fibrillation TRAVEL OUTSIDE OF THE [place] IN LAST 30 DAYS: No - HPI Onset: Just prior to arrival Onset/Duration: Sudden Quality of pain: No pain Severity: Severe Pain Level: Denies Associated symptoms: Shortness of breath Exacerbated by: Denies Relieved by: Denies Similar symptoms previously: No Recently seen / treated by doctor: No - Related Data Allergies/Adverse Reactions: chlorpromazine Allergy (Verified 05/05/17 14:47) Penicillins Allergy (Verified 05/05/17 14:47) ants Allergy (Uncoded 05/05/17 14:47) bees Allergy (Uncoded 05/05/17 14:47) Past Medical History - General Information source: Patient - Social History Smoking Status: Former Smoker Cigarette use (# per day): No Chew tobacco use (# tins/day): No - former Smoking Education Provided: No Frequency of alcohol use: Heavy Drug Abuse: Marijuana, Other Family History: Arthritis, CAD, DM, Hyperlipidemia, Hypertension, Malignancy. denies: CVA, Thyroid Disfunction Patient has suicidal ideation: No Patient has homicidal ideation: No - Past Medical History Cardiac Medical History: Reports: Hx Hypercholesterolemia, Hx Hypertension, Hx Heart Murmur Denies: Hx Heart Attack Pulmonary Medical History: Reports: Hx Asthma, Hx Bronchitis, Hx COPD, Hx Pneumonia Denies: Hx Intubation, Hx Sleep Apnea, Hx Tuberculosis Neurological Medical History: Reports: Hx Migraine, Hx Seizures. Denies: Hx Cerebrovascular Accident Endocrine Medical History: Reports: Hx Diabetes Mellitus Type 2. Denies: Hx Hyperthyroidism, Hx Hypothyroidism Renal/ Medical History: Reports: Hx Benign Prostatic Hyperplasia. Denies: Hx Peritoneal Dialysis GI Medical History: Reports: Hx Gastritis, Hx Gastroesophageal Reflux Disease, Hx Irritable Bowel, Hx Colonoscopy. Denies: Hx Hepatitis, Hx Hiatal Hernia, Hx Endoscopy Musculoskeltal Medical History: Reports Hx Arthritis, Reports Hx Musculoskeletal Deformity, Reports Hx Musculoskeletal Trauma Psychiatric Medical History: Reports: Hx Depression Traumatic Medical History: Reports: Hx Fractures - leg both Infectious Medical History: Reports: Hx HIV. Denies: Hx Hepatitis Past Surgical History: Reports: Hx Orthopedic Surgery - multiple leg surgeries ons left shoulder surgery. Denies: Hx Pacemaker - Immunizations Immunizations up to date: Yes Hx Diphtheria, Pertussis, Tetanus Vaccination: Yes Hx Pneumococcal Vaccination: 06/01/11 Review of Systems - Review of Systems Notes: REVIEW OF SYSTEMS: CONSTITUTIONAL : Denies fever, chills, or sweats. Denies recent illness. EENT: Denies eye, ear, throat, or mouth pain or symptoms. Denies nasal or sinus congestion or discharge. Denies throat, tongue, or mouth swelling or difficulty swallowing. CARDIOVASCULAR: Admits to racing heart RESPIRATORY: Admits shortness of breath difficulty breathing GASTROINTESTINAL: Denies abdominal pain or distention. Denies nausea, vomiting , or diarrhea. Denies blood in vomitus, stools, or per rectum. Denies black, tarry stools. Denies constipation. GENITOURINARY: Denies difficulty urinating, painful urination, burning, frequency, blood in urine, or discharge. MUSCULOSKELETAL: Denies back or neck pain or stiffness. Denies joint pain or swelling. SKIN: Denies rash, lesions or sores. HEMATOLOGIC : Denies easy bruising or bleeding. LYMPHATIC: Denies swollen, enlarged glands. NEUROLOGICAL: Denies confusion or altered mental status. Denies passing out or loss of consciousness. Denies dizziness or lightheadedness. Denies headache. Denies weakness or paralysis or loss of use of either side. Denies problems with gait or speech. Denies sensory loss, numbness, or tingling. Denies seizures. PSYCHIATRIC: Denies anxiety or stress. Denies depression, suicidal ideation, or homicidal ideation. ALL OTHER SYSTEMS REVIEWED AND NEGATIVE. Dictation was performed using [employer] voice recognition software PHYSICAL EXAMINATION: GENERAL: Well-appearing, well-nourished and in no acute distress. Appears intoxicated HEAD: Atraumatic, normocephalic. EYES: Pupils equal round and reactive to light, extraocular movements intact, sclera anicteric, conjunctiva are normal. ENT: Nares patent, oropharynx clear without exudates. Moist mucous membranes. NECK: Normal range of motion, supple without lymphadenopathy LUNGS: Breath sounds clear to auscultation bilaterally and equal. No wheezes rales or rhonchi. HEART: A. fib RVR ABDOMEN: Soft, nontender, nondistended abdomen. No guarding, no rebound. No masses appreciated. Musculoskeletal: Normal range of motion, no pitting or edema. No cyanosis. NEUROLOGICAL: Cranial nerves grossly intact. Normal speech, normal gait. Normal sensory, motor exams PSYCH: Normal mood, normal affect. SKIN: Sores noted all throughout Physical Exam - Vital signs Vitals: Pulse Ox 100 07/08/17 04:40 Course - Re-evaluation Re-evalutation: 07/08/17 07:01 Patient was noted to be in A. fib RVR was started on Cardizem, a CTA has been ordered, patient has been noted to be hypoxic was placed on nasal cannula, ABG are pending 07/08/17 08:27 cta notes no pe , fractures are seen and reported ot hospitalist, will admit to the imcu on drip - Vital Signs Vital signs: Temp Pulse Resp BP Pulse Ox 16 102/54 L 92 07/08/17 07:41 07/08/17 07:41 07/08/17 07:44 - Laboratory Result Diagrams: 07/08/17 05:15 07/08/17 05:15 Laboratory results interpreted by me: 07/08/17 07/08/17 07/08/17 05:15 05:15 05:15 RBC 4.12 L MCV 118 H MCH 40.1 H Plt Count 99 L PT 11.1 L Potassium 3.2 L Chloride 90 L Anion Gap 23 H BUN 3 L Glucose 152 H AST 115 H ALT 75 H Alkaline Phosphatase 160 H Total Protein 8.8 H Albumin 5.3 H - Diagnostic Test Radiology reviewed: Image reviewed, Reports reviewed - EKG Interpretation by Ok EKG shows normal: Sinus rhythm, [place], Intervals, QRS Complexes Rhythm: A.Fib Critical Care Note - Critical Care Note Total time excluding time spent on procedures (mins): 40 Comments: 40 minutes of critical care time spent in direct contact evaluating and reevaluating the patient, treating symptoms, reviewing labs and studies and speaking with family and consultants excluding any procedures Discharge - Discharge Clinical Impression: Alcohol abuse, Diabetes mellitus type 2 in nonobese, 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
[2017-07-08 07:05] LABS: ANION GAP 23 (5-19); CARBON DIOXIDE 26 mmol/L (22-30); CHLORIDE 90 mmol/L (98-107); POTASSIUM 3.2 mmol/L (3.6-5.0); SODIUM 139.4 mmol/L (137-145)
[2017-07-08 07:07] LABS: TROPONIN I 0.108 ng/mL
--- NOTE | 2017-07-08 07:58 | RADIOLOGY REPORT (SQ) ---
EXAM DESCRIPTION: CTA CHEST CLINICAL HISTORY: 57 years Male, tachycardia, hypoxia, CP, r/o PE COMPARISON: CR, same day. TECHNIQUE: 69 mL Isovue-370 IV contrast. Multiplanar reformat. This exam was performed according to our departmental dose-optimization program, which includes automated exposure control, adjustment of the mA and/or kV according to patient size and/or use of iterative reconstruction technique. FINDINGS: Comminuted fracture of the first-second sternebrae with 0.3 cm anterior displacement, 1.1 cm liver shaped fracture fragment anteriorly, and underlying 2.6 x 2.5 cm lytic lesion suggesting a pathologic fracture. No evidence of healing. Mild associated swelling. Left 11th and 12th nondisplaced rib fractures with minimal healing. Small rib deformity of the left 10th and ninth posterolateral ribs suggests prior injury. No evidence of pulmonary embolus, no right ventricular strain. Moderate coronary arterial consultation stenting. Mild dependent atelectasis. Atherosclerosis. Mild perinephric fat stranding. Moderate hepatic steatosis. 3.6 cm medial left upper lobar bulla. Moderate low attenuation diffuse thickening of the visualized transverse and left colon suggest prior insult. Inferior neck, axillae, mediastinum, lungs, airway, lymphatics, heart, vasculature, and upper abdomen appear otherwise unremarkable. IMPRESSION: 1. Comminuted pathologic fracture of the sternum. Consider further evaluation with whole body bone scan and/or skeletal survey CR. 2. No acute cardiopulmonary findings. No evidence of pulmonary embolus.
[2017-07-08] MEDS ORDERED: ONDANSETRON 4 MG TAB.RAPDIS PO PRN (08:52)
[2017-07-08] MEDS ORDERED: NORMAL SALINE 1000 ML 1,000 ML IV PRN ×2 (08:52→09:24)
[2017-07-08] MEDS ORDERED: PROMETHAZINE HCL 25 MG TABLET PO PRN (08:59)
[2017-07-08] MEDS ORDERED: DIPHENOXYLATE HCL/ATROP SULF 2.5-0.025 MG TABLET PO PRN (08:59)
[2017-07-08] MEDS ORDERED: DEXTROSE 40% GEL 15 GM TUBE PO PRN ×2 (09:09)
[2017-07-08] MEDS ORDERED: DEXTROSE 50%-WATER 25 GM/50 ML DISP.SYRIN IV PRN ×2 (09:09)
[2017-07-08] MEDS ORDERED: GLUCAGON,HUMAN RECOMB 1 MG INJ IM PRN (09:09)
[2017-07-08] MEDS ORDERED: INSULIN LISPRO 100 UNIT/ML 3 ML VIAL SUBCUT PRN (09:09)
[2017-07-08] MEDS ORDERED: NICOTINE 21 MG/24 HR PATCH.TD24 TD PRN (09:11)
[2017-07-08] MEDS ORDERED: ZIDOVUDINE PO SCH ×2 (10:00)
[2017-07-08] MEDS ORDERED: LAMIVUDINE PO SCH ×2 (10:00)
[2017-07-08] MEDS ORDERED: ABACAVIR PO SCH ×2 (10:00)
[2017-07-08] MEDS ORDERED: DIGOXIN INJ 0.5 MG/2 ML AMPULE IV ONE (10:00)
[2017-07-08] MEDS: POTASSIUM CHLORIDE 10 MEQ TABLET.SA PO SCH ×2 (10:41→23:50)
[2017-07-08] MEDS: PHENYTOIN SODIUM EXTENDED 100 MG CAPSULE PO SCH (10:42)
[2017-07-08] MEDS: DOCUSATE SODIUM 100 MG CAPSULE PO SCH ×2 (10:42→16:37)
[2017-07-08] MEDS: METOPROLOL SUCCINATE 25 MG TAB.SR.24H PO SCH ×2 (10:50→17:17)
[2017-07-08] MEDS ORDERED: RIVAROXABAN 15 MG TABLET PO ONE (11:00)
[2017-07-08] MEDS ORDERED: DIAZEPAM 5 MG TABLET PO SCH (12:00)
[2017-07-08] MEDS ORDERED: MAGNESIUM SULFATE/D5W 2 GM/200 ML RTUPB IV ONE (17:15)
[2017-07-08] MEDS: DIAZEPAM 5 MG TABLET PO SCH (17:18)
[2017-07-08] MEDS: PHENOBARBITAL 64.8 MG TABLET PO SCH (17:18)
--- NOTE | 2017-07-08 17:28 | EKG REPORT ---
SEVERITY:- ABNORMAL ECG - SINUS TACHYCARDIA REPOL ABNRM, PROBABLE ISCHEMIA, DIFFUSE LEADS : Confirmed by: Tracie Masterson 08-Jul-2017 12:17:06
--- NOTE | 2017-07-08 17:28 | EKG REPORT ---
SEVERITY:- ABNORMAL ECG - ATRIAL FIBRILLATION REPOL ABNRM SUGGESTS ISCHEMIA, DIFFUSE LEADS PROLONGED QT INTERVAL : Confirmed by: Tracie Masterson 08-Jul-2017 12:16:52
[2017-07-08] MEDS ORDERED: METOPROLOL TARTRATE PF/INJ 5 MG/5 ML SDV IV ONE (23:45)
[2017-07-09] MEDS: DIAZEPAM 5 MG TABLET PO SCH ×2 (00:16→05:23)
[2017-07-09] MEDS: PHENOBARBITAL 64.8 MG TABLET PO SCH ×4 (00:16→22:12)
[2017-07-09] MEDS ORDERED: METOPROLOL TARTRATE PF/INJ 5 MG/5 ML SDV IV ONE (01:00)
[2017-07-09 05:22] LABS: ABSOLUTE EOSINOPHILS # (AUTO) 0.2 10^3/uL (0.0-0.6); ABSOLUTE MONOCYTES (AUTO) 0.5 10^3/uL (0.1-1.4); ABSOLUTE NEUT (AUTO) 2.3 10^3/uL (1.7-8.2); BASOPHILS % (AUTO) 0.7 % (0-2); EOSINOPHILS % (AUTO) 3.5 % (0-6); HEMATOCRIT 39.1 % (37.9-51.0); LYMPHOCYTES % (AUTO) 39.7 % (13-45); MEAN CORPUSCULAR HEMOGLOBIN 40.7 pg (27.0-33.4); MEAN CORPUSCULAR HGB CONC 34.3 g/dL (32.0-36.0); MONOCYTES % (AUTO) 10.6 % (3-13); RED BLOOD COUNT 3.29 10^6/uL (4.35-5.55); SEGMENTED NEUTROPHILS % (AUTO) 45.5 % (42-78); TOTAL CELLS COUNTED % (AUTO) 100 %
[2017-07-09] MEDS: LANSOPRAZOLE 15 MG TAB.RAP.DR PO SCH (05:22)
[2017-07-09 05:24] LABS: MEAN CORPUSCULAR VOLUME 119 fl (80-97)
[2017-07-09 05:25] LABS: PLATELET COUNT 66 10^3/uL (150-450)
[2017-07-09 05:40] LABS: ANION GAP 7 (5-19); BLOOD UREA NITROGEN 7 mg/dL (7-20); CARBON DIOXIDE 30 mmol/L (22-30); CHLORIDE 97 mmol/L (98-107); CHOLESTEROL 173.19 mg/dL (0-200); GLUCOSE 89 mg/dL (75-110); MAGNESIUM 2.4 mg/dL (1.6-2.3); SODIUM 134.2 mmol/L (137-145); TRIGLYCERIDES 63 mg/dL (<150)
[2017-07-09 05:50] LABS: DIRECT LDL 61 mg/dL (<100)
[2017-07-09 06:01] LABS: POTASSIUM 4.5 mmol/L (3.6-5.0)
[2017-07-09 06:04] LABS: POLYCHROMASIA SLIGHT; STOMATOCYTES 4+
[2017-07-09 06:07] LABS: PLATELET COMMENT DECREASED
[2017-07-09 06:46] LABS: HEMOGLOBIN 13.4 g/dL (13.5-17.0)
--- NOTE | 2017-07-09 07:34 | EKG REPORT ---
SEVERITY:- ABNORMAL ECG - SINUS RHYTHM BORDERLINE REPOL ABNORMALITY, DIFFUSE LEADS BORDERLINE PROLONGED QT INTERVAL : Confirmed by: Ethan Clay MD 09-Jul-2017 07:33:39
[2017-07-09] MEDS ORDERED: ALPRAZOLAM 0.5 MG TABLET PO ONE (07:54)
[2017-07-09] MEDS ORDERED: OXYCODONE HCL IR 5 MG TABLET PO PRN (07:54)
[2017-07-09] MEDS ORDERED: ASPIRIN 81 MG TABLET, CHEWABLE PO ONE (07:56)
[2017-07-09] MEDS ORDERED: LEVALBUTEROL HCL NEB 1.25 MG/3 ML AMPUL NEB ONE (08:00)
[2017-07-09] MEDS: METFORMIN HCL 500 MG TABLET PO SCH ×2 (08:27→17:30)
[2017-07-09] MEDS: VENLAFAXINE HCL 75 MG CAP.SR.24H PO SCH (08:28)
[2017-07-09] MEDS ORDERED: ATORVASTATIN CALCIUM 20 MG TABLET PO ONE (08:30)
[2017-07-09] MEDS: SITAGLIPTIN PHOSPHATE 50 MG TABLET PO SCH (09:53)
[2017-07-09] MEDS: PHENYTOIN SODIUM EXTENDED 100 MG CAPSULE PO SCH (09:54)
[2017-07-09] MEDS: METOPROLOL SUCCINATE 50 MG TAB.SR.24H PO SCH (09:55)
[2017-07-09] MEDS: DOCUSATE SODIUM 100 MG CAPSULE PO SCH ×2 (09:57→17:24)
[2017-07-09] MEDS ORDERED: METOPROLOL SUCCINATE 25 MG TAB.SR.24H PO SCH (10:00)
[2017-07-09] MEDS ORDERED: INFLUENZA ADLT QUAD (36MOS+) 2017-18 VAC 0.5 ML SYR IM PRN (10:25)
[2017-07-09 11:47] LABS: FREE T4 (FREE THYROXINE) 0.8 ng/dL (0.78-2.19)
[2017-07-09 11:48] LABS: THYROID STIMULATING HORMONE 4.53 uIU/mL (0.47-4.68)
[2017-07-09] MEDS: ALPRAZOLAM 0.5 MG TABLET PO SCH ×2 (13:11→22:13)
[2017-07-09] MEDS: OXYCODONE HCL IR 5 MG TABLET PO SCH ×2 (13:11→22:13)
[2017-07-09] MEDS: LEVALBUTEROL HCL NEB 1.25 MG/3 ML AMPUL NEB SCH ×2 (13:24→21:12)
--- NOTE | 2017-07-09 14:15 | RADIOLOGY REPORT (SQ) ---
EXAM DESCRIPTION: CT CERVICAL SPINE WITHOUT COMPLETED DATE/TIME: 07/09/2017 1:00 pm REASON FOR STUDY: left arm numbness COMPARISON: CT angio chest 07/08/2017 TECHNIQUE: Axial images acquired through the cervical spine without intravenous contrast. Images re viewed with lung, soft tissue and bone windows. Reconstructed coronal and sagittal MPR images review ed. Images stored on PACS. All CT scanners at this facility use dose modulation, iterative reconstruction, and/or weight based d osing when appropriate to reduce radiation dose to as low as reasonably achievable (ALARA). [facility]: Dose Right [facility]: CareDose [facility]: Dose Right [facility]: Teradose 4D [facility]: [employer] RADIATION DOSE: CT Rad equipment meets quality standard of care and radiation dose reduction techniq ues were employed. CTDIvol: 20.7 mGy. DLP: 500 mGy-cm. mGy. LIMITATIONS: None. FINDINGS: ALIGNMENT: Anatomic. MINERALIZATION: Normal. VERTEBRAL BODIES: No fractures or dislocation. DISCS: No significant disc disease. FACETS, LATERAL MASSES, POSTERIOR ELEMENTS: No fractures. No dislocation. No acute findings. HARDWARE: None in the spine. VISUALIZED RIBS: No fractures. LUNG APICES AND SOFT TISSUES: Heavily calcified carotid bifurcations. The esophagus is distended in the upper chest with an air-fluid level, question distal esophageal stricture versus hiatal hernia wi th reflux OTHER: No other significant finding. IMPRESSION: No acute fracture or malalignment Calcified carotid bifurcations Air-fluid level in the distended esophagus in the upper chest. Question distal esophageal stricture versus hiatal hernia with reflux TECHNICAL DOCUMENTATION: JOB ID: [id number] Quality ID # [id number]: Final reports with documentation of one or more dose reduction techniques (e.g., Au tomated exposure control, adjustment of the mA and/or kV according to patient size, use of iterative reconstruction technique) 2010 [employer]- All Rights Reserved
--- NOTE | 2017-07-09 15:27 | Physician Advisory Note ---
Physician Advisor ProgressNote .: [facility], I have reviewed the medical record for this patient. Physician Advisor Statement: Please consider documenting, if you agree (please forgive the #; the H&P isn't available as I review this, so I don't know which you are already about to dictate): 1. "pathologic fx of sternum, suspect due to " 2. "Acute exacerbation of COPD" 3. "CP, likely due to " - - such as "CP with EKG changes, possibly ischemic" - or "CP, likely due to sternal fx", or ... 4. "Acute hyponatremia, likely due to " (intravascular volume depletion? ) 5. "alcohol dependence with withdrawal" 6. "suspected protein-calorie malnutrition [state mild, mod, or severe] with BMI __, very low BUN & Cr, [?wt loss, ?appetite loss, ]" [if possible, give specifics on intake, wt loss, loss of SQ fat & muscle mass, diminished hand vp [employer] [place] strength, & clinical importance such as (A) nutritional assessment ordered, (B ) modified diet or supplements ordered, (C) additional labs ordered, (D) prolonged wound healing time, (E) delayed infxn clearance] 7. "Hypoxemia" (no documented increased work of breathing to give dx of Ac REsp fAilure) 8. "hepatic steatosis" (per CT-A) 9. "possible distal esophageal stricture" (by CT c-spine) 10. Medical necessity: please document in each note the reasons pt is not yet felt to be safe for d/c, such as "Sodium level acutely worsening", "new worsening of breathing status", "tx for COPD exacerbation likely to cause worsening of cardiac status, & vice versa", "still having episodes of hypoxemia ", "hemodynamic instability", "I AM CONCERNED about " STatus: Medicare pt with multiple chronic med problems (DM-2, HTN, HLD, COPD, asthma, HIV, BPH, polysubstance abuse +/- dependence, in on 07/08/17 w/Afib RVR new, found to have pathologic fx w/underlying lytic lesion, abnormal acute EKG changes, episodes of hypoxemia & hypotension, LUE numbness (per CT c-spine), developing acute hyponatremia, worsening breathing needing NOW Xopanex neb + continued nebs started today, likely to be withdrawing from EtOH etc over the next few days, highly unlikely to be improved enough for safe d/c before a 2nd MN in hospital. Attending is planning to continue to w/u, tx, & monitor him for at least another night or 2. Appropriate for Inpt status.
--- NOTE | 2017-07-09 15:28 | PDOC H&P ---
History of Present Illness Admission Date/PCP: 07/08/17 08:34 PHILIPPE NAZARIO Patient complains of: Fast heart rate with left arm numbness History of Present Illness: REGINA LEAL is a 57 year old male history of HIV, epilepsy, diabetes, COPD , tobacco alcohol dependence who stated he was feeling well until he noted that his heart was beating fast and he was started have some left arm numbness. Patient states this has never happened to him before. Patient states that he was taking his breathing treatments which consist of albuterol once with this started. Patient is also a heavy drinker. Patient does not have any chest pain but did complain of some left arm numbness. When asked if patient ever had a cardiac workup he stated that he has never done one because he cannot put strain on his heart due to his breathing problems and his seizure history. Patient has a history of epilepsy and states his last seizure was back in April. The ED patient was noted to have A. fib with RVR and was given Cardizem. He was noted to have some electrolyte abnormalities. Patient was sleeping soundly and could not be awakened by me at that time. I will follow-up with patient in collected H&P later on during the admission. This was called to admit patient for A. fib with RVR. Past Medical History Cardiac Medical History: Reports: Hyperlipidema, Hypertension, Heart Murmur Denies: Myocardial Infarction Pulmonary Medical History: Reports: Asthma, Bronchitis, Chronic Obstructive Pulmonary Disease (COPD), Pneumonia Denies: Intubation, Sleep Apnea, Tuberculosis Neurological Medical History: Reports: Migraine, Seizures Endocrine Medical History: Reports: Diabetes Mellitus Type 2 Denies: Hyperthyroidism, Hypothyroidism GI Medical History: Reports: Gastroesophageal Reflux Disease Denies: Hepatitis, Hiatal Hernia Musculoskeltal Medical History: Reports: Arthritis Psychiatric Medical History: Reports: Depression Hematology: Reports: Anemia Infectious Medical History: Reports: HIV Past Surgical History Past Surgical History: Reports: Orthopedic Surgery - multiple leg surgeries ons left shoulder surgery Denies: Pacemaker Social History Smoking Status: Current Some Day Smoker Frequency of Alcohol Use: Heavy Hx Recreational Drug Use: No Drugs: Marijuana Hx Prescription Drug Abuse: No - Advance Directive Resuscitation Status: Full Code Family History Family History: Arthritis, CAD, DM, Hyperlipidemia, Hypertension, Malignancy. denies: CVA, Thyroid Disfunction Parental Family History Reviewed: No Children Family History Reviewed: No Sibling(s) Family History Reviewed.: No Medication/Allergy Home Medications: Abacavir/Lamivudine/Zidovudine [Duxnrdea-Bfklgcryrq-Fyeuu Tab] 1 tab PO Q12 02/16 Albuterol Sulfate [Albuterol Sulfate 2.5mg/3 mL] 1 vial NEB QIDP PRN 07/09/17 Albuterol Sulfate [Proair HFA] 2 puff IH Q4HP PRN 07/09/17 Alprazolam [Xanax] 1 mg PO Q8 07/09/17 Diphenoxylate HCl/Atropine [Lomotil 2.5-0.025 mg Tablet] 1 tab PO BIDP PRN 07/09 Metformin HCl [Glucophage] 1,000 mg PO BIDACBS 07/09/17 Metoprolol Succinate [Toprol XL 100 mg Tablet] 100 mg PO DAILY 07/09/17 Omeprazole 40 mg PO DAILY 07/09/17 Oxycodone HCl [Oxycodone HCl 10 MG Tablet] 10 mg PO Q8 07/09/17 Phenobarbital [Phenobarbital 64.8 mg Tablet] 64.8 mg PO Q8 07/09/17 Phenytoin Sodium Extended [Dilantin 100 mg Capsule.er] 300 mg PO DAILY 07/09/17 Promethazine HCl [Phenergan 25 mg Tablet] 25 mg PO BIDP PRN 07/09/17 Sitagliptin Phosphate [Januvia] 100 mg PO DAILY 07/09/17 Venlafaxine HCl [Venlafaxine HCl ER] 150 mg PO [id number] 07/09/17 Allergies/Adverse Reactions: chlorpromazine Allergy (Verified 05/05/17 14:47) Penicillins Allergy (Verified 05/05/17 14:47) ants Allergy (Uncoded 05/05/17 14:47) bees Allergy (Uncoded 05/05/17 14:47) Review of Systems Constitutional: ABSENT: chills, fever(s), headache(s), weight gain, weight loss Eyes: ABSENT: visual disturbances Ears: ABSENT: hearing changes Cardiovascular: PRESENT: palpitations. ABSENT: chest pain, dyspnea on exertion , edema, orthropnea Respiratory: PRESENT: cough, dyspnea. ABSENT: hemoptysis Gastrointestinal: ABSENT: abdominal pain, constipation, diarrhea, hematemesis, hematochezia, nausea, vomiting Genitourinary: ABSENT: dysuria, hematuria Musculoskeletal: ABSENT: joint swelling Integumentary: ABSENT: rash, wounds Neurological: PRESENT: numbness - Left arm. ABSENT: abnormal gait, abnormal speech, confusion, dizziness, focal weakness, syncope Psychiatric: ABSENT: anxiety, depression, homidical ideation, suicidal ideation Endocrine: ABSENT: cold intolerance, heat intolerance, polydipsia, polyuria Hematologic/Lymphatic: ABSENT: easy bleeding, easy bruising Physical Exam Vital Signs: Selected Entries 07/08/17 07/08/17 05:18 14:31 Heart Rate ( 123 83 Monitors) Respiratory 22 H 22 H Rate Blood Pressure 133/97 H 111/69 Blood Pressure 109 83 Mean O2 Sat by Pulse 94 92 Oximetry General appearance: PRESENT: no acute distress, disheveled, well-developed, well -nourished Head exam: PRESENT: normocephalic Eye exam: PRESENT: EOMI. ABSENT: scleral icterus Ear exam: PRESENT: normal external ear exam Mouth exam: PRESENT: moist Neck exam: ABSENT: carotid bruit, JVD, lymphadenopathy, thyromegaly Respiratory exam: PRESENT: clear to auscultation helen. ABSENT: rales, rhonchi, wheezes Cardiovascular exam: PRESENT: irregular rhythm, tachycardia. ABSENT: diastolic murmur, rubs, systolic murmur Pulses: PRESENT: normal dorsalis pedis pul Vascular exam: PRESENT: normal capillary refill GI/Abdominal exam: PRESENT: normal bowel sounds, soft. ABSENT: distended, guarding, mass, organolmegaly, rebound, tenderness Rectal exam: PRESENT: deferred Extremities exam: PRESENT: full ROM. ABSENT: calf tenderness, clubbing, pedal edema Neurological exam: PRESENT: alert, awake, oriented to person, oriented to place , oriented to time, oriented to situation, CN II-XII grossly intact. ABSENT: motor sensory deficit Psychiatric exam: PRESENT: appropriate affect, normal mood. ABSENT: homicidal ideation, suicidal ideation Skin exam: PRESENT: dry, intact, warm, other - Worse over the body with scabs.. ABSENT: cyanosis, rash Results Laboratory Results: 07/09/17 05:00 07/09/17 05:00 07/08/17 07/08/17 07/08/17 10:44 10:44 10:44 WBC RBC Hgb Hct MCV MCH MCHC RDW Plt Count Seg Neutrophils % Lymphocytes % Monocytes % Eosinophils % Basophils % Absolute Neutrophils Absolute Lymphocytes Absolute Monocytes Absolute Eosinophils Absolute Basophils Sodium Potassium Chloride Carbon Dioxide Anion Gap BUN Creatinine Est GFR ( Amer) Est GFR (Non-Af Amer) Glucose Calcium Magnesium 1.7 Ammonia < 8.7 L Triglycerides Cholesterol LDL Cholesterol Direct VLDL Cholesterol HDL Cholesterol TSH 4.53 Free T4 0.80 07/09/17 07/09/17 05:00 05:00 WBC 5.0 RBC 3.29 L Hgb 13.4 L D Hct 39.1 MCV 119 H MCH 40.7 H MCHC 34.3 RDW 14.0 Plt Count 66 L Seg Neutrophils % 45.5 Lymphocytes % 39.7 Monocytes % 10.6 Eosinophils % 3.5 Basophils % 0.7 Absolute Neutrophils 2.3 Absolute Lymphocytes 2.0 Absolute Monocytes 0.5 Absolute Eosinophils 0.2 Absolute Basophils 0.0 Sodium 134.2 L Potassium 4.5 D Chloride 97 L Carbon Dioxide 30 Anion Gap 7 BUN 7 Creatinine 0.49 L Est GFR ( Amer) > 60 Est GFR (Non-Af Amer) > 60 Glucose 89 Calcium 9.0 Magnesium 2.4 H Ammonia Triglycerides 63 Cholesterol 173.19 LDL Cholesterol Direct 61 VLDL Cholesterol 13.0 HDL Cholesterol 94 TSH Free T4 07/08/17 07/08/17 07/08/17 10:44 10:44 22:00 Troponin I 1.860 0.664 NT-Pro-B Natriuret Pep 790 Impressions: Chest X-Ray 07/08/17 04:41 IMPRESSION: No acute cardiopulmonary findings. 2010 [employer]- All Rights Reserved Chest/Abdomen CTA 07/08/17 05:44 IMPRESSION: 1. Comminuted pathologic fracture of the sternum. Consider further evaluation with whole body bone scan and/or skeletal survey CR. 2. No acute cardiopulmonary findings. No evidence of pulmonary embolus. Cervical Spine CT 07/09/17 00:00 IMPRESSION: No acute fracture or malalignment Calcified carotid bifurcations Air-fluid level in the distended esophagus in the upper chest. Question distal esophageal stricture versus hiatal hernia with reflux Assessment & Plan - Diagnosis (1) Atrial fibrillation with RVR Is this a current diagnosis for this admission?: Yes Plan: Initially on Cardizem drip after he was bolused. Patient was given IV digoxin started on his metoprolol 25 twice daily. Patient normally takes 1200 daily however patient is slightly hypotensive most likely due to his A. fib with RVR. When patient blood pressure improves will resume on his home dose of metoprolol. Will order serial troponins. Will check lipid panel. Patient may benefit from anticoagulation however he is thrombocytopenic and due to his being off the phenobarbital it may be difficult to adequately anticoagulate this patient. Will start patient on aspirin. Will order cardiac echo. Patient did have one recently however at that time he just had chest pain. Patient will need ischemic workup which was recommended on his previous admission however not done. Check patient thyroid studies. Patient does have hypokalemia which will be replaced. Will check magnesium levels. (2) Elevated troponin Plan: Likely secondary to band ischemia from his A. fib with RVR. Will check a cardiac echo. Will trend troponins. Patient does not complain of chest pain however he does have left arm numbness. 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 (5) Hypertension Qualifiers: Hypertension type: essential hypertension Qualified Code(s): I10 - Essential (primary) hypertension Is this a current diagnosis for this admission?: Yes Plan: Actually hypotensive at the moment. Will continue IV hydration and a low-dose of metoprolol. Was resume his home dose once his blood pressure stabilizes. (6) Alcohol abuse Is this a current diagnosis for this admission?: Yes Plan: She was started on Valium however insisted that he received his Xanax instead. Patient has no clear signs of withdrawal. Also phenobarbital may help with preventing the withdrawal symptoms. We will continue his antiseizure medications. (7) Seizures Is this a current diagnosis for this admission?: Yes Plan: Continue patient on his home medications. Patient states his last seizure was back in April. (8) Thrombocytopenia Is this a current diagnosis for this admission?: Yes Plan: Is chronic in nature pressure could be due to his HIV medications. (9) Hypokalemia Is this a current diagnosis for this admission?: Yes Plan: Patient will replacement follow-up. Will check his magnesium. (10) Hyperlipidemia Is this a current diagnosis for this admission?: Yes Plan: Continue statin and check lipid panel in the morning. - Time Time Spent: 30 to 50 Minutes Anticipated discharge: Home Within: within 48 hours - Inpatient Certification Medical Necessity: Need For IV Fluids, Need For Continuous Telemetry Monitoring
--- NOTE | 2017-07-09 15:40 | PDOC PROGRESS REPORT ---
Subjective Progress Note for:: 07/09/17 Subjective:: Currently in normal sinus rhythm. Patient complained of some chest tightness but this improved with a breathing treatment. Patient still complaining of left arm numbness. Patient also complaining about not being given enough food. Reason For Visit: A FIB RVR,HYPOKALEMIA Physical Exam Vital Signs: Temp Pulse Resp BP Pulse Ox 97.9 F 72 16 113/78 97 07/09/17 12:00 07/09/17 13:24 07/09/17 13:24 07/09/17 12:00 07/09/17 13:24 Intake & Output 07/08/17 07/09/17 07/10/17 06:59 06:59 06:59 Intake Total 1510 722 Balance 1510 722 Weight 68.3 kg General appearance: PRESENT: no acute distress, disheveled, well-developed, well -nourished Head exam: PRESENT: normocephalic Eye exam: PRESENT: EOMI. ABSENT: scleral icterus Ear exam: PRESENT: normal external ear exam Mouth exam: PRESENT: moist Neck exam: ABSENT: carotid bruit, JVD, lymphadenopathy, thyromegaly Respiratory exam: PRESENT: clear to auscultation helen. ABSENT: rales, rhonchi, wheezes Cardiovascular exam: PRESENT: RRR. ABSENT: diastolic murmur, rubs, systolic murmur Pulses: PRESENT: normal dorsalis pedis pul Vascular exam: PRESENT: normal capillary refill GI/Abdominal exam: PRESENT: normal bowel sounds, soft. ABSENT: distended, guarding, mass, organolmegaly, rebound, tenderness Rectal exam: PRESENT: deferred Extremities exam: PRESENT: full ROM. ABSENT: calf tenderness, clubbing, pedal edema Neurological exam: PRESENT: alert, awake, oriented to person, oriented to place , oriented to time, oriented to situation, CN II-XII grossly intact. ABSENT: motor sensory deficit Psychiatric exam: PRESENT: appropriate affect, normal mood. ABSENT: homicidal ideation, suicidal ideation Skin exam: PRESENT: dry, intact, warm, other - Scans all his skin where patient has picked at his skin. ABSENT: cyanosis, rash Results Laboratory Results: 07/09/17 05:00 07/09/17 05:00 07/08/17 07/08/17 07/08/17 10:44 10:44 10:44 WBC RBC Hgb Hct MCV MCH MCHC RDW Plt Count Seg Neutrophils % Lymphocytes % Monocytes % Eosinophils % Basophils % Absolute Neutrophils Absolute Lymphocytes Absolute Monocytes Absolute Eosinophils Absolute Basophils Sodium Potassium Chloride Carbon Dioxide Anion Gap BUN Creatinine Est GFR ( Amer) Est GFR (Non-Af Amer) Glucose Calcium Magnesium 1.7 Ammonia < 8.7 L Triglycerides Cholesterol LDL Cholesterol Direct VLDL Cholesterol HDL Cholesterol TSH 4.53 Free T4 0.80 07/09/17 07/09/17 05:00 05:00 WBC 5.0 RBC 3.29 L Hgb 13.4 L D Hct 39.1 MCV 119 H MCH 40.7 H MCHC 34.3 RDW 14.0 Plt Count 66 L Seg Neutrophils % 45.5 Lymphocytes % 39.7 Monocytes % 10.6 Eosinophils % 3.5 Basophils % 0.7 Absolute Neutrophils 2.3 Absolute Lymphocytes 2.0 Absolute Monocytes 0.5 Absolute Eosinophils 0.2 Absolute Basophils 0.0 Sodium 134.2 L Potassium 4.5 D Chloride 97 L Carbon Dioxide 30 Anion Gap 7 BUN 7 Creatinine 0.49 L Est GFR ( Amer) > 60 Est GFR (Non-Af Amer) > 60 Glucose 89 Calcium 9.0 Magnesium 2.4 H Ammonia Triglycerides 63 Cholesterol 173.19 LDL Cholesterol Direct 61 VLDL Cholesterol 13.0 HDL Cholesterol 94 TSH Free T4 07/08/17 07/08/17 07/08/17 10:44 10:44 22:00 Troponin I 1.860 0.664 NT-Pro-B Natriuret Pep 790 Impressions: Chest X-Ray 07/08/17 04:41 IMPRESSION: No acute cardiopulmonary findings. 2010 [employer]- All Rights Reserved Chest/Abdomen CTA 07/08/17 05:44 IMPRESSION: 1. Comminuted pathologic fracture of the sternum. Consider further evaluation with whole body bone scan and/or skeletal survey CR. 2. No acute cardiopulmonary findings. No evidence of pulmonary embolus. Cervical Spine CT 07/09/17 00:00 IMPRESSION: No acute fracture or malalignment Calcified carotid bifurcations Air-fluid level in the distended esophagus in the upper chest. Question distal esophageal stricture versus hiatal hernia with reflux Assessment & Plan - Diagnosis (1) Atrial fibrillation with RVR Is this a current diagnosis for this admission?: Yes Plan: Off Cardizem drip since 07/08/2017 currently in sinus rhythm. Patient on metoprolol 100 daily. Patient on high-dose aspirin. No anticoagulant be used at this time due to patient severe chronic thrombocytopenia and interactions with anticoagulates and his antiseizure medications making the anticoagulant suboptimal. Awaiting cardiac echo. Discussed with patient the importance of ischemic workup due to his multiple comorbidities and risk factors. Did discuss with Dr. Morel the option of having this done as outpatient. (2) Arm numbness left Is this a current diagnosis for this admission?: Yes Plan: Patient with left arm numbness. Not sure if this may be related to his A. fib with RVR. His A. fib with RVR is now resolved and his heart rate is well controlled he is actually in sinus rhythm at the moment. Will check a CT of cervical spine to look for any impingement resulting in radiculopathy. Will also check B12, folate, and thiamine as patient is a heavy drinker. Patient on gabapentin. (3) Elevated troponin Plan: Likely secondary to band ischemia from his A. fib with RVR. Cardiac echo pending. Patient did have a elevated patient in troponin up to 1.860 however is trending down. Patient will have ischemic workup as outpatient. Patient currently on high-dose aspirin, statin and beta-rashid. Patient does not have any chest pain. Will continue to trend troponins and follow-up EKGs. 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 (5) Diabetes mellitus type 2 in nonobese Is this a current diagnosis for this admission?: Yes Plan: A1c 5.1. As there is no plan for a stress test, will continue his oral anti- hyperglycemics. (6) Hypertension Qualifiers: Hypertension type: essential hypertension Qualified Code(s): I10 - Essential (primary) hypertension Is this a current diagnosis for this admission?: Yes Plan: Blood pressures are improved now that he is in normal sinus rhythm. Will resume his Toprol 100 daily. (7) Alcohol abuse Is this a current diagnosis for this admission?: Yes Plan: Will resume patient's Xanax and his phenobarbital which will help with withdrawal symptoms. Patient with no clear signs of withdrawal. Will intellectual property counsel patient on alcohol cessation. (8) Seizures Is this a current diagnosis for this admission?: Yes Plan: Continue patient on his home medications. Patient states his last seizure was back in April. (9) Thrombocytopenia Is this a current diagnosis for this admission?: Yes Plan: Is chronic in nature pressure could be due to his HIV medications. (10) Hypokalemia Is this a current diagnosis for this admission?: Yes Plan: Resolved. (11) Hyperlipidemia Is this a current diagnosis for this admission?: Yes Plan: Continue statin and check lipid panel in the morning. (12) COPD (chronic obstructive pulmonary disease) Is this a current diagnosis for this admission?: Yes Plan: With COPD however no acute exacerbation though he does complain of some chest tightness. Will start patient on nebs and inhaled steroids. - Time Time Spent with patient: 15-24 minutes Anticipated discharge: Home Within: within 48 hours - Inpatient Certification Medical Necessity: Need for Nebulizer Therapy and Monitoring of Response
--- NOTE | 2017-07-09 15:43 | Progress Note ---
Provider Note Provider Note: Please note that this is a patient of Dr. Fitzgerald. Dr. Theodore was contacted today regarding his patient being admitted and asked if he would like to take over the care of the patient. mostly asked that the hospitalist continue caring for the patient.
[2017-07-09] MEDS ORDERED: RIVAROXABAN 15 MG TABLET PO SCH (17:00)
[2017-07-09] MEDS: BUDESONIDE NEB 0.5 MG/2 ML AMPUL NEB SCH (20:57)
[2017-07-09] MEDS: GABAPENTIN 300 MG CAPSULE PO SCH (22:14)
[2017-07-10] MEDS: LEVALBUTEROL HCL NEB 1.25 MG/3 ML AMPUL NEB SCH ×4 (03:11→20:16)
[2017-07-10 04:11] LABS: ANION GAP 9 (5-19); BLOOD UREA NITROGEN 6 mg/dL (7-20); CALCIUM 9.2 mg/dL (8.4-10.2); CARBON DIOXIDE 26 mmol/L (22-30); CHLORIDE 99 mmol/L (98-107); GLUCOSE 107 mg/dL (75-110); MAGNESIUM 1.8 mg/dL (1.6-2.3); POTASSIUM 3.9 mmol/L (3.6-5.0); SODIUM 133.8 mmol/L (137-145)
[2017-07-10] MEDS: OXYCODONE HCL IR 5 MG TABLET PO SCH ×3 (05:23→23:04)
[2017-07-10] MEDS: PHENOBARBITAL 64.8 MG TABLET PO SCH ×3 (05:23→23:05)
[2017-07-10] MEDS: LANSOPRAZOLE 15 MG TAB.RAP.DR PO SCH (05:24)
[2017-07-10] MEDS: ALPRAZOLAM 0.5 MG TABLET PO SCH ×3 (05:24→23:01)
--- NOTE | 2017-07-10 06:42 | EKG REPORT ---
SEVERITY:- BORDERLINE ECG - SINUS RHYTHM ATRIAL PREMATURE COMPLEX MINIMAL ST DEPRESSION, INFERIOR LEADS BORDERLINE PROLONGED QT INTERVAL : Confirmed by: Ethan Clay MD 10-Jul-2017 06:41:25
[2017-07-10] MEDS: VENLAFAXINE HCL 75 MG CAP.SR.24H PO SCH (07:40)
[2017-07-10] MEDS: METFORMIN HCL 500 MG TABLET PO SCH ×2 (07:40→17:57)
[2017-07-10] MEDS: BUDESONIDE NEB 0.5 MG/2 ML AMPUL NEB SCH ×2 (08:52→20:16)
[2017-07-10] MEDS ORDERED: ENOXAPARIN SODIUM INJ 80 MG/0.8 ML DISP.SYRIN SUBCUT SCH (10:00)
[2017-07-10] MEDS: SITAGLIPTIN PHOSPHATE 50 MG TABLET PO SCH (10:29)
[2017-07-10] MEDS: PHENYTOIN SODIUM EXTENDED 100 MG CAPSULE PO SCH (10:29)
[2017-07-10] MEDS: GABAPENTIN 300 MG CAPSULE PO SCH ×2 (10:29→23:06)
[2017-07-10] MEDS: ASPIRIN 81 MG TABLET, CHEWABLE PO SCH (10:30)
[2017-07-10] MEDS: METOPROLOL SUCCINATE 50 MG TAB.SR.24H PO SCH ×2 (10:31→23:05)
[2017-07-10] MEDS: DOCUSATE SODIUM 100 MG CAPSULE PO SCH ×2 (10:33→17:58)
--- NOTE | 2017-07-10 11:20 | PDOC CONSULTATION ---
Consultation Consult Date: 07/10/17 Attending physician:: ELAYNE SAUNDERS Consult reason:: Atrial fibrillation, positive enzymes History of Present Illness Admission Date/PCP: 07/08/17 08:34 PHILIPPE NAZARIO Patient complains of: Shortness of breath History of Present Illness: REGINA LEAL is a 57 year old male history of HIV, epilepsy, diabetes, COPD , tobacco alcohol dependence who stated he was feeling well until he noted that his heart was beating fast and he was started have some left arm numbness. Patient states this has never happened to him before. Patient states that he was taking his breathing treatments which consist of albuterol once with this started. Patient is also a heavy drinker. Patient does not have any chest pain but did complain of some left arm numbness. When asked if patient ever had a cardiac workup he stated that he has never done one because he cannot put strain on his heart due to his breathing problems and his seizure history. Patient has a history of epilepsy and states his last seizure was back in April. The ED patient was noted to have A. fib with RVR and was given Cardizem. He was noted to have some electrolyte abnormalities. This history was reviewed, confirmed and supplemented. Patient denied any prior history of cardiac workup or any significant cardiac problems. Past Medical History Cardiac Medical History: Reports: Hyperlipidema, Hypertension, Heart Murmur Denies: Myocardial Infarction Pulmonary Medical History: Reports: Asthma, Bronchitis, Chronic Obstructive Pulmonary Disease (COPD), Pneumonia Denies: Intubation, Sleep Apnea, Tuberculosis Neurological Medical History: Reports: Migraine, Seizures Endocrine Medical History: Reports: Diabetes Mellitus Type 2 Denies: Hyperthyroidism, Hypothyroidism GI Medical History: Reports: Gastroesophageal Reflux Disease Denies: Hepatitis, Hiatal Hernia Musculoskeltal Medical History: Reports: Arthritis Psychiatric Medical History: Reports: Depression Hematology: Reports: Anemia Infectious Medical History: Reports: HIV Past Surgical History Past Surgical History: Reports: Orthopedic Surgery - multiple leg surgeries ons left shoulder surgery Denies: Pacemaker Social History Information Source: Patient Smoking Status: Current Some Day Smoker Frequency of Alcohol Use: Heavy Hx Recreational Drug Use: No Drugs: Marijuana Hx Prescription Drug Abuse: No - Advance Directive Resuscitation Status: Full Code Surrogate healthcare decision maker:: Patient did not wish to identify a surrogate decision-maker. Family History Family History: Arthritis, CAD, DM, Hyperlipidemia, Hypertension, Malignancy. denies: CVA, Thyroid Disfunction Parental Family History Reviewed: Yes Children Family History Reviewed: Yes Sibling(s) Family History Reviewed.: Yes Medication/Allergy Home Medications: Abacavir/Lamivudine/Zidovudine [Wudezkly-Dzqurwuguh-Nania Tab] 1 tab PO Q12 02/16 Albuterol Sulfate [Albuterol Sulfate 2.5mg/3 mL] 1 vial NEB QIDP PRN 07/09/17 Albuterol Sulfate [Proair HFA] 2 puff IH Q4HP PRN 07/09/17 Alprazolam [Xanax] 1 mg PO Q8 07/09/17 Diphenoxylate HCl/Atropine [Lomotil 2.5-0.025 mg Tablet] 1 tab PO BIDP PRN 07/09 Metformin HCl [Glucophage] 1,000 mg PO BIDACBS 07/09/17 Omeprazole 40 mg PO DAILY 07/09/17 Oxycodone HCl [Oxycodone HCl 10 MG Tablet] 10 mg PO Q8 07/09/17 Phenobarbital [Phenobarbital 64.8 mg Tablet] 64.8 mg PO Q8 07/09/17 Phenytoin Sodium Extended [Dilantin 100 mg Capsule.er] 300 mg PO DAILY 07/09/17 Promethazine HCl [Phenergan 25 mg Tablet] 25 mg PO BIDP PRN 07/09/17 Sitagliptin Phosphate [Januvia] 100 mg PO DAILY 07/09/17 Venlafaxine HCl [Venlafaxine HCl ER] 150 mg PO [id number] 07/09/17 Abacavir/Lamivudine/Zidovudine [Trizivir Tablet] 1 tab PO .Q12 07/12/17 Alprazolam [Xanax 0.5 mg Tablet] 1 mg PO Q8 tablet 07/12/17 Lisinopril [Prinivil 5 mg Tablet] 5 mg PO DAILY #30 tablet 07/12/17 Metoprolol Succinate [Toprol Xl] 25 mg PO BID #60 tab.er.24h 07/12/17 Ranolazine [Ranexa 500 mg Tab.sr] 500 mg PO Q12 #60 tab.sr.12h 07/12/17 Sucralfate [Carafate 1 gm Tablet] 1 gm PO ACHS #120 tablet 07/12/17 Allergies/Adverse Reactions: chlorpromazine Allergy (Verified 05/05/17 14:47) Penicillins Allergy (Verified 05/05/17 14:47) ants Allergy (Uncoded 05/05/17 14:47) bees Allergy (Uncoded 05/05/17 14:47) Review of Systems Review of Systems: Please see history of present illness and past medical history as wall. Constitutional: No fever or chills reported. Head : No recent chronic headaches, recent head injury. Eyes: No recent eye pain, diplopia, redness, discharge, acute visual changes. Ears: No recent chronic ear pain, acute hearing loss, ear discharge. Oral cavity: No recent ulcerations, bleeding, oral cavity discomfort. Neck: No recent acute neck pain reported. Hematologic: No recent easy bruising or bleeding or hematologic malignancy reported. Lymphatic: No recent lymphatic malignancy, chronic lymphadenopathy reported yet Cardiovascular system review: See history of present illness. Respiratory system review: No recent chronic cough, hemoptysis, blood clots in the lungs reported. Shortness of breath on exertion Gastrointestinal system review: Negative for any recent acute or chronic abdominal pain, hematemesis, melena, recent change in bowel habits. Genitourinary system review: No recent acute or chronic hematuria, flank pain, UTI etc. reported. Skin system review: Negative for any recent abnormal bruising, patient does describe history of rash secondary to a drug reaction. Neurologic: No prior history of strokes, mini strokes, seizure disorder. Psychologic: No history of major psychosis or major depression reported. Musculoskeletal: Minor aches and pains reported. No acute joint swelling reported. Endocrine: No recent polyuria, polydipsia, recent heat or cold intolerance. Physical Exam Vital Signs: Temp Pulse Resp BP Pulse Ox 97.8 F 77 18 109/64 96 07/10/17 08:28 07/10/17 08:50 07/10/17 08:50 07/10/17 08:28 07/10/17 08:50 Intake & Output 07/09/17 07/10/17 07/11/17 06:59 06:59 06:59 Intake Total 1510 1998 Output Total 0 Balance 1510 1998 Weight 68.3 kg 69.5 kg Exam: GENERAL: well-nourished and in no acute distress. Alert and oriented x3 HEAD: Atraumatic, normocephalic. EYES: Pupils equal round and reactive to light, extraocular movements intact, sclera anicteric, conjunctiva are normal. ENT: TMs normal, nares patent, oropharynx clear without exudates. Moist mucous membranes. No oral ulcerations or bleeding gums noted NECK: supple without lymphadenopathy. Trachea is central. No cervical or axillary lymphadenopathy noted. Carotids are 2+, JVD WNL LUNGS: Respiration seems nonlabored, no significant accessory muscle action noted. Breath sounds clear to auscultation bilaterally and equal noted. No wheezes rales or rhonchi noted. No significant dullness noted on percussion. CHEST: Palpation of the chest wall shows no significant chest wall tenderness. No other significant abnormalities noted. HEART: [place] [employer]ER, No PSH, 1/6 LORIE aortic area, 1/6 cornejo systolic murmur mitral area, no rubs, no gallops. ABDOMEN: Soft, no significant tenderness appreciated, normoactive bowel sounds. No guarding, no rebound. No rigidity noted . No masses appreciated. EXTREMITIES: Pedal pulses are 1-2+, no calf tenderness noted. No clubbing or cyanosis.trace to 1+ pedal edema noted NEUROLOGICAL: Focused neurological exam showed no significant neurologic deficit. Normal speech, no focal weakness appreciated. PSYCH: Normal mood, normal affect. Judgment and insight within normal limits. SKIN: Multiple rash and findings of itching noted, no significant ulcerations noted. MUSCULOSKELETAL EXAM: No significant joint swelling noted. Results Laboratory Results: 07/09/17 05:00 07/10/17 03:45 07/08/17 07/08/17 07/08/17 10:44 10:44 10:44 Sodium Potassium Chloride Carbon Dioxide Anion Gap BUN Creatinine Est GFR ( Amer) Est GFR (Non-Af Amer) Glucose Calcium Magnesium 1.7 Ammonia < 8.7 L Vitamin B12 Folate TSH 4.53 Free T4 0.80 07/10/17 03:45 Sodium 133.8 L Potassium 3.9 Chloride 99 Carbon Dioxide 26 Anion Gap 9 BUN 6 L Creatinine 0.52 Est GFR ( Amer) > 60 Est GFR (Non-Af Amer) > 60 Glucose 107 Calcium 9.2 Magnesium 1.8 Ammonia Vitamin B12 615.0 Folate 6.80 TSH Free T4 07/08/17 07/08/17 07/08/17 10:44 10:44 22:00 Troponin I 1.860 0.664 NT-Pro-B Natriuret Pep 790 07/09/17 07/09/17 07/10/17 16:00 21:42 03:45 Troponin I 0.241 0.209 0.205 NT-Pro-B Natriuret Pep EKG Comments: Twelve-lead EKG shows atrial fibrillation with rapid ventricular response and ST T-wave changes consistent with ischemia Impressions: Chest X-Ray 07/08/17 04:41 IMPRESSION: No acute cardiopulmonary findings. 2010 [employer]- All Rights Reserved Chest/Abdomen CTA 07/08/17 05:44 IMPRESSION: 1. Comminuted pathologic fracture of the sternum. Consider further evaluation with whole body bone scan and/or skeletal survey CR. 2. No acute cardiopulmonary findings. No evidence of pulmonary embolus. Cervical Spine CT 07/09/17 00:00 IMPRESSION: No acute fracture or malalignment Calcified carotid bifurcations Air-fluid level in the distended esophagus in the upper chest. Question distal esophageal stricture versus hiatal hernia with reflux Assessment & Plan - Diagnosis (1) Elevated troponin Is this a current diagnosis for this admission?: Yes (2) Atrial fibrillation with RVR Is this a current diagnosis for this admission?: Yes (3) COPD (chronic obstructive pulmonary disease) Qualifiers: Emphysema type: unspecified Is this a current diagnosis for this admission?: Yes (4) Diabetes mellitus type 2 in nonobese Is this a current diagnosis for this admission?: Yes (5) Hypertension Qualifiers: Hypertension type: essential hypertension Qualified Code(s): I10 - Essential (primary) hypertension Is this a current diagnosis for this admission?: Yes (6) Alcohol abuse Is this a current diagnosis for this admission?: Yes (7) 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 Elevated troponin I: To be evaluated further with a nuclear stress test. Could have been related to atrial fibrillation with rapid ventricular response. Patient did have chest pain on presentation, therefore it is difficult to assess whether atrial fibrillation caused the chest pain or the chest pain brought on atrial fibrillation because of LV systolic dysfunction and left atrial stress brought on by LV diastolic dysfunction. Anyway to be evaluated by a nuclear stress test to be performed hopefully tomorrow. Atrial fibrillation with rapid ventricular response: Continue with rate control strategy. Patient did convert spontaneously to sinus rhythm. Continue beta- rashid and other rate lowering calcium channel rashid therapy. A 2D echocardiogram was ordered and will be reviewed. Further management plans will depend on to the echo results. COPD: Patient claims to help with smoking. Patient advised to avoid secondhand smoking. Diabetes: Have recommended good control but avoid any hyper or hypoglycemia. Hypertension: Reasonably well controlled. Blood pressure goal in this patient is 135/85 or less. This was discussed with the patient. Currently blood pressure under reasonable control. Better medication for this patient are DIA inhibitor/ARB/beta rashid etc. discussed side effects of uncontrolled hypertension and also severe hypotension. Alcohol abuse: Discussed that alcohol itself can lead to atrial fibrillation and also cardiomyopathy. HIV disease: Will leave management to heater engineer helper. - Time Time Spent: 30 to 50 Minutes - CODE STATUS was discussed, patient remains full code. Surrogate decision-maker patient not willing to identify a surrogate decision-maker to me. Multiple medical problems were addressed. More than 50% of the time spent coordinating care, discussing management plans with involved caregivers. Management plans discussed with involved personnels. Medical decision making was of moderate to high complexity, patient's has multiple comorbidities. Medications reviewed and adjusted accordingly: Yes
--- NOTE | 2017-07-10 16:50 | PDOC PROGRESS REPORT ---
Subjective Progress Note for:: 07/10/17 Subjective:: Patient still having left arm numbness. Patient now reporting dark stools. Patient states he had a colonoscopy 5 years ago and had polyps. Reason For Visit: A FIB RVR,HYPOKALEMIA Physical Exam Vital Signs: Temp Pulse Resp BP Pulse Ox 98.0 F 70 18 105/67 97 07/10/17 15:22 07/10/17 15:22 07/10/17 15:22 07/10/17 15:22 07/10/17 15:22 Intake & Output 07/09/17 07/10/17 07/11/17 06:59 06:59 06:59 Intake Total 1510 1998 65 Output Total 0 Balance 1510 1998 659 Weight 68.3 kg 69.5 kg General appearance: PRESENT: no acute distress, disheveled, well-developed, well -nourished Head exam: PRESENT: normocephalic Eye exam: PRESENT: EOMI. ABSENT: scleral icterus Ear exam: PRESENT: normal external ear exam Mouth exam: PRESENT: moist Neck exam: ABSENT: carotid bruit, JVD, lymphadenopathy, thyromegaly Respiratory exam: PRESENT: clear to auscultation helen. ABSENT: rales, rhonchi, wheezes Cardiovascular exam: PRESENT: RRR. ABSENT: diastolic murmur, rubs, systolic murmur Pulses: PRESENT: normal dorsalis pedis pul GI/Abdominal exam: PRESENT: normal bowel sounds, soft. ABSENT: distended, guarding, mass, organolmegaly, rebound, tenderness Rectal exam: PRESENT: deferred Extremities exam: PRESENT: full ROM. ABSENT: calf tenderness, clubbing, pedal edema Neurological exam: PRESENT: alert, awake, oriented to person, oriented to place , oriented to time, oriented to situation, CN II-XII grossly intact. ABSENT: motor sensory deficit Psychiatric exam: PRESENT: appropriate affect, normal mood. ABSENT: homicidal ideation, suicidal ideation Skin exam: PRESENT: dry, intact, warm. ABSENT: cyanosis, rash Results Laboratory Results: 07/09/17 05:00 07/10/17 03:45 07/10/17 03:45 Sodium 133.8 L Potassium 3.9 Chloride 99 Carbon Dioxide 26 Anion Gap 9 BUN 6 L Creatinine 0.52 Est GFR ( Amer) > 60 Est GFR (Non-Af Amer) > 60 Glucose 107 Calcium 9.2 Magnesium 1.8 Vitamin B12 615.0 Folate 6.80 07/08/17 07/08/17 07/08/17 10:44 10:44 22:00 Troponin I 1.860 0.664 NT-Pro-B Natriuret Pep 790 07/09/17 07/09/17 07/10/17 16:00 21:42 03:45 Troponin I 0.241 0.209 0.205 NT-Pro-B Natriuret Pep Impressions: Chest X-Ray 07/08/17 04:41 IMPRESSION: No acute cardiopulmonary findings. 2010 [employer]- All Rights Reserved Chest/Abdomen CTA 07/08/17 05:44 IMPRESSION: 1. Comminuted pathologic fracture of the sternum. Consider further evaluation with whole body bone scan and/or skeletal survey CR. 2. No acute cardiopulmonary findings. No evidence of pulmonary embolus. Cervical Spine CT 07/09/17 00:00 IMPRESSION: No acute fracture or malalignment Calcified carotid bifurcations Air-fluid level in the distended esophagus in the upper chest. Question distal esophageal stricture versus hiatal hernia with reflux Assessment & Plan - Diagnosis (1) Atrial fibrillation with RVR Is this a current diagnosis for this admission?: Yes Plan: Off Cardizem drip since 07/08/2017 currently in sinus rhythm. Patient on metoprolol 50mg bid. Patient on high-dose aspirin. Patient started on therapeutic dosages of lovenox for his elevated troponin. Echo completed but not read. Plan for stress test in the morning. (2) Arm numbness left Is this a current diagnosis for this admission?: Yes Plan: Patient with left arm numbness. Patient B12 and folate are WNL. Concerned that this maybe cardiac related with the elevated troponin. Patient being worked up for an NSTEMI. Stress test to be completed in the am. CT cervical spine doesn't not seem to be the cause of this numbess. (3) Elevated troponin Is this a current diagnosis for this admission?: Yes Plan: Likely secondary to demand ischemia from his A. fib with RVR. Cardiac echo pending. Unfortunately patient continues to have some left arm numbness and intermittent chest tightness. He does have risk factors, HTN, DM, HLD and smoking. Patient started on therapeutic lovenox, asprin, betablocker and statin. Ntro paste also started. Plan is for stress test in the morning. Cardiology following. 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 (5) Diabetes mellitus type 2 in nonobese Is this a current diagnosis for this admission?: Yes Plan: A1c 5.1. Continue oral antihyperglycemics. (6) Hypertension Qualifiers: Hypertension type: essential hypertension Qualified Code(s): I10 - Essential (primary) hypertension Is this a current diagnosis for this admission?: Yes Plan: Blood pressures are improved now that he is in normal sinus rhythm. Change to Toprol 50mg bid. (7) Alcohol abuse Is this a current diagnosis for this admission?: Yes Plan: Will resume patient's Xanax and his phenobarbital which will help with withdrawal symptoms. Patient with no clear signs of withdrawal. Will extension course counselor patient on alcohol cessation. (8) Seizures Is this a current diagnosis for this admission?: Yes Plan: Continue patient on his home medications. Patient states his last seizure was back in April. (9) Thrombocytopenia Is this a current diagnosis for this admission?: Yes Plan: Is chronic in nature pressure could be due to his HIV medications. (10) Hypokalemia Is this a current diagnosis for this admission?: Yes Plan: Resolved. (11) Hyperlipidemia Is this a current diagnosis for this admission?: Yes Plan: Continue statin. (12) COPD (chronic obstructive pulmonary disease) Qualifiers: Emphysema type: unspecified Is this a current diagnosis for this admission?: Yes Plan: With COPD however no acute exacerbation though he does complain of some chest tightness. Continue nebs and inhaled steroids. (13) Melena Is this a current diagnosis for this admission?: Yes Plan: Patient reports dark stools. Will check occult stools and follow up CBC. - Time Time Spent with patient: Less than 15 minutes - Inpatient Certification Medical Necessity: Need For Continuous Telemetry Monitoring - Patient with positive troponin and requires ischemic work up prior to discharge.
[2017-07-10 17:18] LABS: ABSOLUTE BASOPHILS # (AUTO) 0.1 10^3/uL (0.0-0.2); ABSOLUTE EOSINOPHILS # (AUTO) 0.3 10^3/uL (0.0-0.6); ABSOLUTE LYMPHOCYTES (AUTO) 2.4 10^3/uL (0.5-4.7); ABSOLUTE MONOCYTES (AUTO) 0.6 10^3/uL (0.1-1.4); ABSOLUTE NEUT (AUTO) 2.7 10^3/uL (1.7-8.2); BASOPHILS % (AUTO) 1.4 % (0-2); EOSINOPHILS % (AUTO) 4.8 % (0-6); HEMOGLOBIN 12.8 g/dL (13.5-17.0); LYMPHOCYTES % (AUTO) 39.7 % (13-45); MEAN CORPUSCULAR HEMOGLOBIN 39.8 pg (27.0-33.4); MEAN CORPUSCULAR HGB CONC 33.7 g/dL (32.0-36.0); MEAN CORPUSCULAR VOLUME 118 fl (80-97); MONOCYTES % (AUTO) 10.2 % (3-13); RED BLOOD COUNT 3.22 10^6/uL (4.35-5.55); RED CELL DISTRIBUTION WIDTH 13.6 % (11.5-14.0); SEGMENTED NEUTROPHILS % (AUTO) 43.9 % (42-78); TOTAL CELLS COUNTED % (AUTO) 100 %; WHITE BLOOD COUNT 6.2 10^3/uL (4.0-10.5)
[2017-07-10] MEDS ORDERED: ATORVASTATIN CALCIUM 80 MG TABLET PO ONE (17:30)
[2017-07-10 17:48] LABS: TOXIC GRANULATION SLIGHT
[2017-07-10 17:49] LABS: PLATELET COMMENT DECREASED; PLATELET COUNT 62 10^3/uL (150-450); STOMATOCYTES 3+
--- NOTE | 2017-07-10 19:31 | XCELERA REPORT ---
[address] [address] Transthoracic Echocardiogram Report Name: REGINA LEAL Age: 57 yrs Gender: Male : 1960 Patient Status: Inpatient Patient Location: [address] [place] [address] Study Date: 07/10/2017 09:43 AM Weight: 150 lb Procedure: A complete two-dimensional transthoracic echocardiogram was performed (2D, M-mode, spectral and color flow Doppler). The study was technically difficult with many images being suboptimal in quality. Reason For Study: elevated trop/afib Ordering Physician: ELAYNE SAUNDERS Performed By: Stephenie Peralta Interpretation Summary Left ventricular systolic function is low normal. There is borderline concentric left ventricular hypertrophy. The left ventricle is grossly normal size. Doppler measurements suggest pseudonormalized left ventricular relaxation, which is associated with grade II/IV or mild to moderate diastolic dysfunction Wall motion cannot be accurately commented on, but no definite regional wall motion abnormalities noted. The right ventricle is mildly dilated. The right ventricular systolic function is normal. The left atrium is mildly dilated. The right atrium is mildly dilated. There is a moderate amount of mitral regurgitation There is no mitral valve stenosis. There is a mild to moderate amount of aortic regurgitation There is no aortic valve stenosis Tricuspid regurgitation jet envelope not well defined to measure RV systolic pressure accurately. There is a trace or physiologic amount of tricuspid regurgitation The aortic root is not well visualized. The inferior vena cava appeared normal and decreased > 50% with respiration (RAP 5-10 mmHg) Minimal pericardial effusion. MMode/2D Measurements & Calculations RVDd: 3.3 cm LVIDd: 5.0 cm FS: 40.5 % Ao root diam: 3.1 cm IVSd: 1.0 cm LVIDs: 3.0 cm EDV(Teich): 116.6 ml Ao root area: 7.7 cm2 LVPWd: 0.98 cm ESV(Teich): 33.7 ml LA dimension: 4.1 cm EF(Teich): 71.1 % Doppler Measurements & Calculations MV E max domingo: MV P1/2t max domingo: Ao V2 max: AI max domingo: 95.3 cm/sec 96.3 cm/sec 114.0 cm/sec 393.1 cm/sec MV A max domingo: MV P1/2t: 64.9 msec Ao max PG: AI max P.8 cm/sec MVA(P1/2t): 3.4 cm2 5.2 mmHg 61.8 mmHg MV E/A: 1.0 MV dec slope: AI dec slope: 300.8 cm/sec2 434.1 cm/sec2 AI P1/2t: MV dec time: 382.7 msec 0.21 sec LV V1 max PG: PA V2 max: PI end-d domingo: 5.0 mmHg 70.6 cm/sec 122.2 cm/sec LV V1 max: PA max P.0 mmHg 112.0 cm/sec Left Ventricle The left ventricle is grossly normal size. There is borderline concentric left ventricular hypertrophy. Left ventricular systolic function is low normal. Doppler measurements suggest pseudonormalized left ventricular relaxation, which is associated with grade II/IV or mild to moderate diastolic dysfunction. Wall motion cannot be accurately commented on, but no definite regional wall motion abnormalities noted. Right Ventricle The right ventricle is mildly dilated. There is normal right ventricular wall thickness. The right ventricular systolic function is normal. Atria The right atrium is mildly dilated. The left atrium is mildly dilated. Interarterial septum not well visualized and not well dopplered. Cannot comment on ASD/PFO presence. Mitral Valve The mitral valve is grossly normal. There is no mitral valve stenosis. There is a moderate amount of mitral regurgitation. Aortic Valve The aortic valve is not well visualized secondary to technical limitations. There is no aortic valve stenosis. There is a mild to moderate amount of aortic regurgitation. Tricuspid Valve The tricuspid valve is not well visualized secondary to technical limitations. There is no tricuspid stenosis. There is a trace or physiologic amount of tricuspid regurgitation. Tricuspid regurgitation jet envelope not well defined to measure RV systolic pressure accurately. Pulmonic Valve The pulmonic valve is not well visualized. Great Vessels The aortic root is not well visualized. The inferior vena cava appeared normal and decreased > 50% with respiration (RAP 5-10 mmHg). Effusions Minimal pericardial effusion. : ELAYNE SAUNDERS > Tracie Masterson
[2017-07-10] MEDS: ENOXAPARIN SODIUM INJ 80 MG/0.8 ML DISP.SYRIN SUBCUT SCH (23:03)
[2017-07-11] MEDS: LEVALBUTEROL HCL NEB 1.25 MG/3 ML AMPUL NEB SCH ×4 (02:31→20:21)
[2017-07-11] MEDS: OXYCODONE HCL IR 5 MG TABLET PO SCH ×3 (06:06→22:08)
[2017-07-11] MEDS: LANSOPRAZOLE 15 MG TAB.RAP.DR PO SCH (06:07)
[2017-07-11] MEDS: PHENOBARBITAL 64.8 MG TABLET PO SCH ×3 (06:07→22:06)
[2017-07-11] MEDS: ALPRAZOLAM 0.5 MG TABLET PO SCH ×3 (06:07→22:06)
[2017-07-11 06:24] LABS: HEMATOCRIT 37.4 % (37.9-51.0); HEMOGLOBIN 12.8 g/dL (13.5-17.0); MEAN CORPUSCULAR HEMOGLOBIN 40.5 pg (27.0-33.4); MEAN CORPUSCULAR HGB CONC 34.2 g/dL (32.0-36.0); MEAN CORPUSCULAR VOLUME 118 fl (80-97); RED BLOOD COUNT 3.16 10^6/uL (4.35-5.55); RED CELL DISTRIBUTION WIDTH 13.6 % (11.5-14.0); WHITE BLOOD COUNT 5.9 10^3/uL (4.0-10.5)
[2017-07-11 06:34] LABS: ANION GAP 10 (5-19); BLOOD UREA NITROGEN 9 mg/dL (7-20); CALCIUM 9.4 mg/dL (8.4-10.2); CARBON DIOXIDE 26 mmol/L (22-30); CHLORIDE 97 mmol/L (98-107); GLUCOSE 85 mg/dL (75-110); MAGNESIUM 1.6 mg/dL (1.6-2.3); SODIUM 133.2 mmol/L (137-145)
[2017-07-11 07:05] LABS: PLATELET COUNT 62 10^3/uL (150-450)
[2017-07-11] MEDS: BUDESONIDE NEB 0.5 MG/2 ML AMPUL NEB SCH ×2 (08:28→20:20)
[2017-07-11] MEDS: METFORMIN HCL 500 MG TABLET PO SCH ×2 (08:58→16:40)
[2017-07-11] MEDS: VENLAFAXINE HCL 75 MG CAP.SR.24H PO SCH (08:58)
[2017-07-11] MEDS: PHENYTOIN SODIUM EXTENDED 100 MG CAPSULE PO SCH (09:04)
[2017-07-11] MEDS ORDERED: NITROGLYCERIN 2.5 MG (0.1 MG/HR) PATCH.TD24 TD SCH (10:00)
[2017-07-11] MEDS ORDERED: PANTOPRAZOLE SODIUM 80 MG in NORMAL SALINE 100 ML IV ONE (10:30)
--- NOTE | 2017-07-11 10:37 | PDOC CONSULTATION ---
Consultation Consult Date: 07/11/17 Attending physician:: JENNIFER RIVERA Consult reason:: dark stools, on antiocaulation. cardiac work up for PR in progress History of Present Illness Admission Date/PCP: 07/08/17 08:34 PHILIPPE NAZARIO History of Present Illness: patient was admitted about 3 days ago for A Fib with RVR has been on Lovenox had episode of dark stool, ? possible GI bleeding patient having left arm numbness and cardiology has seen the patient work up in progress for elevated troponins patient states that has had a colonoscopy in the past patient scheduled for stress testing with Dr Masterson patient likely will need EGD if cardiac work up is negative so will defer on that until that has been completed would check H/H , transfuse as necessary, start on a PPI for now Past Medical History Cardiac Medical History: Reports: Hyperlipidema, Hypertension, Heart Murmur Denies: Myocardial Infarction Pulmonary Medical History: Reports: Asthma, Bronchitis, Chronic Obstructive Pulmonary Disease (COPD), Pneumonia Denies: Intubation, Sleep Apnea, Tuberculosis Neurological Medical History: Reports: Migraine, Seizures Endocrine Medical History: Reports: Diabetes Mellitus Type 2 Denies: Hyperthyroidism, Hypothyroidism GI Medical History: Reports: Gastroesophageal Reflux Disease Denies: Hepatitis, Hiatal Hernia Musculoskeltal Medical History: Reports: Arthritis Psychiatric Medical History: Reports: Depression Hematology: Reports: Anemia Infectious Medical History: Reports: HIV Past Surgical History Past Surgical History: Reports: Orthopedic Surgery - multiple leg surgeries ons left shoulder surgery Denies: Pacemaker Social History Smoking Status: Current Some Day Smoker Frequency of Alcohol Use: Heavy Hx Recreational Drug Use: No Drugs: Marijuana Hx Prescription Drug Abuse: No - Advance Directive Resuscitation Status: Full Code Family History Family History: Arthritis, CAD, DM, Hyperlipidemia, Hypertension, Malignancy. denies: CVA, Thyroid Disfunction Parental Family History Reviewed: Yes Children Family History Reviewed: Unknown Sibling(s) Family History Reviewed.: Unknown Medication/Allergy Home Medications: Abacavir/Lamivudine/Zidovudine [Mwtbitxl-Uxmizmpuyv-Yuhvj Tab] 1 tab PO Q12 02/16 Albuterol Sulfate [Albuterol Sulfate 2.5mg/3 mL] 1 vial NEB QIDP PRN 07/09/17 Albuterol Sulfate [Proair HFA] 2 puff IH Q4HP PRN 07/09/17 Alprazolam [Xanax] 1 mg PO Q8 07/09/17 Diphenoxylate HCl/Atropine [Lomotil 2.5-0.025 mg Tablet] 1 tab PO BIDP PRN 07/09 Metformin HCl [Glucophage] 1,000 mg PO BIDACBS 07/09/17 Metoprolol Succinate [Toprol XL 100 mg Tablet] 100 mg PO DAILY 07/09/17 Omeprazole 40 mg PO DAILY 07/09/17 Oxycodone HCl [Oxycodone HCl 10 MG Tablet] 10 mg PO Q8 07/09/17 Phenobarbital [Phenobarbital 64.8 mg Tablet] 64.8 mg PO Q8 07/09/17 Phenytoin Sodium Extended [Dilantin 100 mg Capsule.er] 300 mg PO DAILY 07/09/17 Promethazine HCl [Phenergan 25 mg Tablet] 25 mg PO BIDP PRN 07/09/17 Sitagliptin Phosphate [Januvia] 100 mg PO DAILY 07/09/17 Venlafaxine HCl [Venlafaxine HCl ER] 150 mg PO [id number] 07/09/17 Allergies/Adverse Reactions: chlorpromazine Allergy (Verified 05/05/17 14:47) Penicillins Allergy (Verified 05/05/17 14:47) ants Allergy (Uncoded 05/05/17 14:47) bees Allergy (Uncoded 05/05/17 14:47) Review of Systems Constitutional: ABSENT: fever(s), headache(s), night sweats, weakness Eyes: ABSENT: visual disturbances Ears: ABSENT: hearing changes Nose, Mouth, and Throat: ABSENT: mouth pain, sore throat Cardiovascular: PRESENT: palpitations. ABSENT: edema Respiratory: PRESENT: dyspnea. ABSENT: hemoptysis Gastrointestinal: PRESENT: melena. ABSENT: dysphagia, heartburn Genitourinary: ABSENT: dysuria, hematuria Musculoskeletal: ABSENT: deformity, joint swelling Integumentary: ABSENT: lesions, pruritus Neurological: ABSENT: syncope, tingling, tremor(s), vertigo Endocrine: ABSENT: polydipsia, polyphagia, polyuria Physical Exam Vital Signs: Temp Pulse Resp BP Pulse Ox 97.4 F 66 20 119/71 100 07/11/17 07:50 07/11/17 07:50 07/11/17 07:50 07/11/17 07:50 07/11/17 07:50 Intake & Output 07/10/17 07/11/17 07/12/17 06:59 06:59 06:59 Intake Total 1998 1712 Output Total 0 Balance 1998 1712 Weight 69.5 kg 69.9 kg General appearance: PRESENT: no acute distress, well-developed, well-nourished Head exam: PRESENT: atraumatic, normocephalic Eye exam: PRESENT: EOMI, PERRLA. ABSENT: nystagmus, periorbital swelling, scleral icterus Mouth exam: PRESENT: moist, neck supple Throat exam: ABSENT: tonsillar exudate, tonsillogmegaly Neck exam: ABSENT: meningismus, tenderness, thyromegaly Respiratory exam: PRESENT: symmetrical, unlabored. ABSENT: tachypnea, wheezes Cardiovascular exam: PRESENT: irregular rhythm. ABSENT: RRR GI/Abdominal exam: PRESENT: soft. ABSENT: rebound, rigid, tenderness Extremities exam: ABSENT: joint swelling Musculoskeletal exam: PRESENT: full ROM Neurological exam: PRESENT: oriented to time, oriented to situation, CN II-XII grossly intact Skin exam: PRESENT: normal color. ABSENT: mottled, urticaria, vesicles Results Laboratory Results: 07/11/17 05:34 07/11/17 05:34 07/10/17 07/10/17 07/11/17 17:00 23:45 05:34 WBC 6.2 5.9 RBC 3.22 L 3.16 L Hgb 12.8 L 12.8 L Hct 38.0 37.4 L MCV 118 H 118 H MCH 39.8 H 40.5 H MCHC 33.7 34.2 RDW 13.6 13.6 Plt Count 62 L 62 L Seg Neutrophils % 43.9 Lymphocytes % 39.7 Monocytes % 10.2 Eosinophils % 4.8 Basophils % 1.4 Absolute Neutrophils 2.7 Absolute Lymphocytes 2.4 Absolute Monocytes 0.6 Absolute Eosinophils 0.3 Absolute Basophils 0.1 Sodium Potassium Chloride Carbon Dioxide Anion Gap BUN Creatinine Est GFR ( Amer) Est GFR (Non-Af Amer) Glucose Calcium Magnesium Stool Occult Blood POSITIVE 07/11/17 05:34 WBC RBC Hgb Hct MCV MCH MCHC RDW Plt Count Seg Neutrophils % Lymphocytes % Monocytes % Eosinophils % Basophils % Absolute Neutrophils Absolute Lymphocytes Absolute Monocytes Absolute Eosinophils Absolute Basophils Sodium 133.2 L Potassium 4.0 Chloride 97 L Carbon Dioxide 26 Anion Gap 10 BUN 9 Creatinine 0.58 Est GFR ( Amer) > 60 Est GFR (Non-Af Amer) > 60 Glucose 85 Calcium 9.4 Magnesium 1.6 Stool Occult Blood 07/08/17 07/08/17 07/08/17 10:44 10:44 22:00 Troponin I 1.860 0.664 NT-Pro-B Natriuret Pep 790 07/09/17 07/09/17 07/10/17 16:00 21:42 03:45 Troponin I 0.241 0.209 0.205 NT-Pro-B Natriuret Pep Impressions: Chest X-Ray 07/08/17 04:41 IMPRESSION: No acute cardiopulmonary findings. 2010 [employer]- All Rights Reserved Chest/Abdomen CTA 07/08/17 05:44 IMPRESSION: 1. Comminuted pathologic fracture of the sternum. Consider further evaluation with whole body bone scan and/or skeletal survey CR. 2. No acute cardiopulmonary findings. No evidence of pulmonary embolus. Cervical Spine CT 07/09/17 00:00 IMPRESSION: No acute fracture or malalignment Calcified carotid bifurcations Air-fluid level in the distended esophagus in the upper chest. Question distal esophageal stricture versus hiatal hernia with reflux Assessment & Plan - Diagnosis (1) Melena Is this a current diagnosis for this admission?: Yes Plan: likely due to possible lesion in the stomach due to administration of anticoagulation however cardiac work up takes preference in this case continue to monitor symptoms if no PR and stress test is negative, then need EGD however cardiac work up has to be completed first transfuse as necessary, PPI for now will follow - Time Time Spent: 50 to 70 Minutes
[2017-07-11] MEDS ORDERED: AMINOPHYLLINE INJ/PF 250 MG/10 ML SDV IV ONE (11:56)
[2017-07-11] MEDS ORDERED: REGADENOSON INJ 0.4 MG/5 ML DISP.SYRIN IV ONE (11:56)
[2017-07-11] MEDS: NORMAL SALINE 100 ML with PANTOPRAZOLE SODIUM 80 MG IV PRN ×8 (12:22→12:29)
[2017-07-11] MEDS: MAGNESIUM OXIDE 400 MG TABLET PO SCH (12:24)
[2017-07-11] MEDS: GABAPENTIN 300 MG CAPSULE PO SCH ×2 (12:24→22:08)
[2017-07-11] MEDS: POTASSIUM CHLORIDE 10 MEQ TABLET.SA PO SCH (12:24)
[2017-07-11] MEDS: DOCUSATE SODIUM 100 MG CAPSULE PO SCH ×2 (12:25→18:06)
[2017-07-11] MEDS: SITAGLIPTIN PHOSPHATE 50 MG TABLET PO SCH (12:25)
[2017-07-11] MEDS: METOPROLOL SUCCINATE 50 MG TAB.SR.24H PO SCH ×2 (12:44→22:07)
--- NOTE | 2017-07-11 13:29 | DRAGON STRESS TEST REPORT ---
INTRAVENOUS LEXISCAN CARDIOLITE STRESS TEST USING SINGLE PHOTON EMMISION COMPUTERIZED TOMOGRAPHIC. DATE OF PROCEDURE: July 11, 2017 INDICATION : Abnormal troponin I, atrial fibrillation CARDIAC RISK FACTORS: Diabetes, hypertension RESTING EKG: Sinus rhythm, no baseline ST-T wave changes noted STRESS EKG: No significant changes noted with LexiScan bolus REASON FOR TERMINATION: Protocol. PROCEDURE REPORT: Baseline heart rate 62 beats per minute with blood pressure of 114/74. Patient had no significant complaints. Heart rate at 2 minutes post bolus 73 with a blood pressure of 97/64. 3 minutes post bolus heart rate 68 with blood pressure of 109/71. No significant EKG changes were noted. Patient had no significant complaints during the procedure or postprocedure. Patient injected with Aminophyllin 75 mg at 3 minutes or later after Lexiscan bolus. CONCLUSIONS: Normal EKG and hemodynamic response to IV LexiScan. NUCLEAR DATA: At rest the patient was given 10.90 millicuries of technetium 99 sestamibi injected intravenously. As per protocol rest gated SPECT images were obtained. Subsequently the patient was given intravenous LexiScan at a dose of 0.4 mg in 5 mL intravenously, followed by flush with normal saline. Subsequently the stress dose of 30.4 millicuries of technetium 99 sestamibi was injected intravenously. As per protocol stress gated images were obtained. NUCLEAR INTERPRETATION: Both raw and processed data were used for interpretation. Visual, qualitative, computer-generated quantitative data was used. There was good myocardial uptake of technetium compound. Motion artifact and soft tissue attenuations were noted. Increased visceral uptake was noted. Predominantly fixed defect indicative of scar noted in the inferolateral wall of the left ventricle with mild surrounding transient perfusion defect negative of mild surrounding ischemia EKG gated imaging showed LV EF at 50 percent, rest and stress gated EF similar visually, mild inferolateral hypokinesia noted. T. I D. ratio was 0.97. Lung heart ratio noted to be within normal limits 0.36. No significant extracardiac and abnormal radiotracer activities were noted. RV free wall uptake was noted to be WNL. IMPRESSION: Also refer to comments under nuclear interpretation. Also test results needs to be interpreted in the context of pretest probability. 1. Inferolateral predominantly fixed defect indicative of scar noted. 2. Small area of surrounding transient perfusion defect or ischemia noted. 3. EKG gated imaging shows left ventricular ejection fraction of approximately 50% with mild inferolateral hypokinesia. 4. Clinical correlation requested as occasionally single vessel disease or balanced ischemia could be missed. In approximately 10% of the cases Lexiscan may not cause adequate vasodilatory stress. RECOMMENDATIONS: Aggressive risk factor modification, medical therapy. If patient has recurrent chest pains, in spite of good medical regimen, consider referral for heart catheterization. Clinical correlation with echocardiogram derived ejection fraction. Inability to exercise by itself can lead to increased cardiovascular event risks. Consider cardiology consultation and or follow-up if clinically indicated. I AM AVAILABLE FOR CARDIOLOGY CONSULTATION AND FOLLOWUP IF REQUESTED BY PMD Tracie Masterson M.D., PRINCESS [employer] wireless store manager, Board certified in cardiovascular diseases, Nuclear cardiology, Echocardiography Cardiac CT and cardiac MRI Ph. [phone] NESHA
[2017-07-11 14:56] LABS: APPEARANCE,URINE CLEAR; BILIRUBIN,URINE NEGATIVE (NEGATIVE); COLOR,URINE YELLOW; GLUCOSE, URINE NEGATIVE (NEGATIVE); KETONES,URINE NEGATIVE (NEGATIVE); LEUKOCYTE ESTERASE,URINE NEGATIVE (NEGATIVE); NITRITE,URINE NEGATIVE (NEGATIVE); PROTEIN,URINE NEGATIVE (NEGATIVE)
[2017-07-11] MEDS: ENOXAPARIN SODIUM INJ 80 MG/0.8 ML DISP.SYRIN SUBCUT SCH ×2 (16:33→22:10)
[2017-07-11] MEDS: ASPIRIN 81 MG TABLET, CHEWABLE PO SCH (16:33)
--- NOTE | 2017-07-11 20:00 | PDOC PROGRESS REPORT ---
Subjective Progress Note for:: 07/11/17 Subjective:: Patient seems to be doing better with gradual improvement. Pt is denying any chest arm or neck discomfort. Patient denying any PND, orthopnea. Patient denied any sustained palpitations, dizziness, syncope, near syncope. Patient denying any fever chills. Patient denying any other significant discomfort. Patient is maintaining sinus rhythm. Review of systems: Rest review of systems negative. Medications: Medications have been reviewed. Reason For Visit: A FIB RVR,HYPOKALEMIA Physical Exam Vital Signs: Temp Pulse Resp BP Pulse Ox 98.2 F 71 19 126/70 H 99 07/11/17 15:57 07/11/17 15:57 07/11/17 15:57 07/11/17 15:57 07/11/17 15:57 Intake & Output 07/10/17 07/11/17 07/12/17 06:59 06:59 06:59 Intake Total 1998 171 50 Output Total 0 Balance 1998 1713 50 Weight 69.5 kg 69.9 kg Exam: GENERAL: well-nourished and in no acute distress. Alert and oriented x3 HEAD: Atraumatic, normocephalic. EYES: Pupils equal round and reactive to light, extraocular movements intact, sclera anicteric, conjunctiva are normal. ENT: TMs normal, nares patent, oropharynx clear without exudates. Moist mucous membranes. No oral ulcerations or bleeding gums noted NECK: supple without lymphadenopathy. Trachea is central. No cervical or axillary lymphadenopathy noted. Carotids are 2+, JVD WNL LUNGS: Respiration seems nonlabored, no significant accessory muscle action noted. Breath sounds clear to auscultation bilaterally and equal noted. No wheezes rales or rhonchi noted. No significant dullness noted on percussion. CHEST: Palpation of the chest wall shows no significant chest wall tenderness. No other significant abnormalities noted. HEART: [place] [employer], No PSH, 1/6 LORIE aortic area, 1/6 cornjeo systolic murmur mitral area, no rubs, no gallops. ABDOMEN: Soft, no significant tenderness appreciated, normoactive bowel sounds. No guarding, no rebound. No rigidity noted . No masses appreciated. EXTREMITIES: Pedal pulses are 1-2+, no calf tenderness noted. No clubbing or cyanosis.trace to 1+ pedal edema noted NEUROLOGICAL: Focused neurological exam showed no significant neurologic deficit. Normal speech, no focal weakness appreciated. PSYCH: Normal mood, normal affect. Judgment and insight within normal limits. SKIN: Noted to have some rash but without any ulcerations or signs of pruritus noted. MUSCULOSKELETAL EXAM: No significant joint swelling noted. Results Laboratory Results: 07/11/17 05:34 07/11/17 05:34 07/10/17 07/11/17 07/11/17 23:45 05:34 05:34 WBC 5.9 RBC 3.16 L Hgb 12.8 L Hct 37.4 L MCV 118 H MCH 40.5 H MCHC 34.2 RDW 13.6 Plt Count 62 L Sodium 133.2 L Potassium 4.0 Chloride 97 L Carbon Dioxide 26 Anion Gap 10 BUN 9 Creatinine 0.58 Est GFR ( Amer) > 60 Est GFR (Non-Af Amer) > 60 Glucose 85 Calcium 9.4 Magnesium 1.6 Urine Color Urine Appearance Urine pH Ur Specific [place] Urine Protein Urine Glucose (UA) Urine Ketones Urine Blood Urine Nitrite Ur Leukocyte Esterase Urine WBC (Auto) Urine RBC (Auto) Stool Occult Blood POSITIVE 07/11/17 14:35 WBC RBC Hgb Hct MCV MCH MCHC RDW Plt Count Sodium Potassium Chloride Carbon Dioxide Anion Gap BUN Creatinine Est GFR ( Amer) Est GFR (Non-Af Amer) Glucose Calcium Magnesium Urine Color YELLOW Urine Appearance CLEAR Urine pH 7.0 Ur Specific [place] 1.010 Urine Protein NEGATIVE Urine Glucose (UA) NEGATIVE Urine Ketones NEGATIVE Urine Blood NEGATIVE Urine Nitrite NEGATIVE Ur Leukocyte Esterase NEGATIVE Urine WBC (Auto) 0 Urine RBC (Auto) 0 Stool Occult Blood 07/08/17 07/08/17 07/08/17 10:44 10:44 22:00 Troponin I 1.860 0.664 NT-Pro-B Natriuret Pep 790 07/09/17 07/09/17 07/10/17 16:00 21:42 03:45 Troponin I 0.241 0.209 0.205 NT-Pro-B Natriuret Pep Impressions: Chest X-Ray 07/08/17 04:41 IMPRESSION: No acute cardiopulmonary findings. 2010 [employer]- All Rights Reserved Chest/Abdomen CTA 07/08/17 05:44 IMPRESSION: 1. Comminuted pathologic fracture of the sternum. Consider further evaluation with whole body bone scan and/or skeletal survey CR. 2. No acute cardiopulmonary findings. No evidence of pulmonary embolus. Cervical Spine CT 07/09/17 00:00 IMPRESSION: No acute fracture or malalignment Calcified carotid bifurcations Air-fluid level in the distended esophagus in the upper chest. Question distal esophageal stricture versus hiatal hernia with reflux Assessment & Plan - Diagnosis (1) Elevated troponin Is this a current diagnosis for this admission?: Yes (2) Atrial fibrillation with RVR Is this a current diagnosis for this admission?: Yes (3) COPD (chronic obstructive pulmonary disease) Qualifiers: Emphysema type: unspecified Is this a current diagnosis for this admission?: Yes (4) Diabetes mellitus type 2 in nonobese Is this a current diagnosis for this admission?: Yes (5) Hypertension Qualifiers: Hypertension type: essential hypertension Qualified Code(s): I10 - Essential (primary) hypertension Is this a current diagnosis for this admission?: Yes (6) Alcohol abuse Is this a current diagnosis for this admission?: Yes (7) 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 Currently showed mainly a fixed defect with small area of surrounding ischemia. At this point, recommend aggressive risk factor modification and medical management. However if patient has recurrent chest pain, in spite of good medical regimen will consider cardiac catheterization. Atrial fibrillation with rapid ventricular response: Continue with rate control strategy. Patient did convert spontaneously to sinus rhythm. Continue beta- rashid and other rate lowering calcium channel rashid therapy. A 2D echocardiogram results were reviewed. Reviewed. Further management plans will depend on to the echo results. COPD: Patient claims to help with smoking. Patient advised to avoid secondhand smoking. Diabetes: Have recommended good control but avoid any hyper or hypoglycemia. Hypertension: Reasonably well controlled. Blood pressure goal in this patient is 135/85 or less. This was discussed with the patient. Currently blood pressure under reasonable control. Better medication for this patient are DIA inhibitor/ARB/beta rashid etc. discussed side effects of uncontrolled hypertension and also severe hypotension. Alcohol abuse: Discussed that alcohol itself can lead to atrial fibrillation and also cardiomyopathy. HIV disease: Will leave management to contact finger assembler. Patient did claim that he had some guaiac positive stool and GI specialist been consulted. In the meantime will try to optimize medical management for this patient. Will add Ranexa as Ranexa has been shown to reduce atrial fibrillation in setting of ischemia. - Time Time with patient: Greater than 35 minutes - CODE STATUS was discussed, patient remains full code. More than 50% of the time spent coordinating care, discussing management plans with involved caregivers. Management plans discussed with involved personnels. Medical decision making was of moderate to high complexity, patient's has multiple comorbidities. Medications reviewed and adjusted accordingly: Yes
[2017-07-11] MEDS ORDERED: ATORVASTATIN CALCIUM 80 MG TABLET PO SCH (22:00)
[2017-07-11] MEDS: RANOLAZINE 500 MG TAB.SR.12H PO SCH (22:05)
[2017-07-11] MEDS ORDERED: LEVALBUTEROL HCL NEB 1.25 MG/3 ML AMPUL NEB PRN (23:28)
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
[2017-07-12] MEDS: OXYCODONE HCL IR 5 MG TABLET PO SCH ×2 (06:45→15:54)
[2017-07-12] MEDS: ALPRAZOLAM 0.5 MG TABLET PO SCH ×2 (06:45→15:52)
[2017-07-12] MEDS: PHENOBARBITAL 64.8 MG TABLET PO SCH ×2 (06:45→15:54)
[2017-07-12] MEDS: BUDESONIDE NEB 0.5 MG/2 ML AMPUL NEB SCH (08:53)
[2017-07-12] MEDS: GABAPENTIN 300 MG CAPSULE PO SCH (09:19)
[2017-07-12] MEDS: RANOLAZINE 500 MG TAB.SR.12H PO SCH (09:19)
[2017-07-12] MEDS: VENLAFAXINE HCL 75 MG CAP.SR.24H PO SCH (09:19)
[2017-07-12] MEDS: PHENYTOIN SODIUM EXTENDED 100 MG CAPSULE PO SCH (09:20)
[2017-07-12] MEDS: METFORMIN HCL 500 MG TABLET PO SCH ×2 (09:23→15:55)
[2017-07-12] MEDS: NORMAL SALINE 100 ML with PANTOPRAZOLE SODIUM 80 MG IV PRN ×2 (09:27)
[2017-07-12] MEDS ORDERED: ALPRAZOLAM 0.5 MG TABLET PO ONE (11:00)
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
--- NOTE | 2017-07-12 12:24 | PDOC PROGRESS REPORT ---
Subjective Progress Note for:: 07/12/17 Subjective:: Spoke with Anesthesiology about the patient in review, patient had some continued chest pain over night patient's stress test is suggestive of ischemic disease both of us are in agreement that patient is high risk for myocardial complications and therefore will not proceed with planned EGD no further bleeding is noted as well Reason For Visit: A FIB RVR,HYPOKALEMIA Physical Exam Vital Signs: Temp Pulse Resp BP Pulse Ox 98.7 F 64 18 125/60 98 07/12/17 07:49 07/12/17 08:53 07/12/17 08:53 07/12/17 07:49 07/12/17 08:53 Intake & Output 07/11/17 07/12/17 07/13/17 06:59 06:59 06:59 Intake Total 1713 650 Output Total 1100 0 Balance 1713 -450 0 Weight 69.9 kg 68.6 kg General appearance: PRESENT: mild distress, well-developed, well-nourished Head exam: PRESENT: atraumatic, normocephalic Eye exam: PRESENT: EOMI, PERRLA. ABSENT: nystagmus, periorbital swelling, scleral icterus Mouth exam: PRESENT: moist Throat exam: ABSENT: tonsillar exudate, tonsillogmegaly Neck exam: ABSENT: meningismus, tenderness, thyromegaly Respiratory exam: PRESENT: symmetrical, unlabored. ABSENT: tachypnea, wheezes Cardiovascular exam: PRESENT: RRR, +S1, +S2 GI/Abdominal exam: PRESENT: soft. ABSENT: rebound, rigid, tenderness Extremities exam: ABSENT: joint swelling Musculoskeletal exam: PRESENT: full ROM Neurological exam: PRESENT: oriented to time, oriented to situation, CN II-XII grossly intact Skin exam: PRESENT: normal color. ABSENT: mottled, pallor, urticaria, vesicles Results Laboratory Results: 07/11/17 05:34 07/11/17 05:34 07/11/17 14:35 Urine Color YELLOW Urine Appearance CLEAR Urine pH 7.0 Ur Specific [place] 1.010 Urine Protein NEGATIVE Urine Glucose (UA) NEGATIVE Urine Ketones NEGATIVE Urine Blood NEGATIVE Urine Nitrite NEGATIVE Ur Leukocyte Esterase NEGATIVE Urine WBC (Auto) 0 Urine RBC (Auto) 0 07/08/17 07/08/17 07/08/17 10:44 10:44 22:00 Troponin I 1.860 0.664 NT-Pro-B Natriuret Pep 790 07/09/17 07/09/17 07/10/17 16:00 21:42 03:45 Troponin I 0.241 0.209 0.205 NT-Pro-B Natriuret Pep Impressions: Chest X-Ray 07/08/17 04:41 IMPRESSION: No acute cardiopulmonary findings. 2010 [employer]- All Rights Reserved Chest/Abdomen CTA 07/08/17 05:44 IMPRESSION: 1. Comminuted pathologic fracture of the sternum. Consider further evaluation with whole body bone scan and/or skeletal survey CR. 2. No acute cardiopulmonary findings. No evidence of pulmonary embolus. Cervical Spine CT 07/09/17 00:00 IMPRESSION: No acute fracture or malalignment Calcified carotid bifurcations Air-fluid level in the distended esophagus in the upper chest. Question distal esophageal stricture versus hiatal hernia with reflux Skeletal Survey 07/12/17 08:00 IMPRESSION: No lytic or blastic lesions worrisome for metastatic disease. Multiple old rib and long bone fractures. Patient has history of remote prior trauma. Heavy atherosclerotic calcification of the carotid bifurcations, abdominal aorta and iliac vessels Assessment & Plan - Diagnosis (1) Melena Is this a current diagnosis for this admission?: Yes Plan: seems to have stabalized, no other active bleeding is noted too much of a cardiac risk per anesthesia to proceed his previous colonoscopy was not completed since he could not tolerate conscious sedation if any bleeding, get bleeding scan PPI transfuse as necessary transfer to tertiary institution would be good plan on this patient with critical cardiac disease - Time Time Spent with patient: 15-24 minutes
[2017-07-12] MEDS ORDERED: LISINOPRIL 5 MG TABLET PO ONE (13:00)
[2017-07-12] MEDS: MAGNESIUM OXIDE 400 MG TABLET PO SCH (15:50)
[2017-07-12] MEDS: POTASSIUM CHLORIDE 10 MEQ TABLET.SA PO SCH (15:53)
[2017-07-12] MEDS: SITAGLIPTIN PHOSPHATE 50 MG TABLET PO SCH (15:53)
[2017-07-12] MEDS: DOCUSATE SODIUM 100 MG CAPSULE PO SCH ×2 (15:56→17:23)
[2017-07-12] MEDS: METOPROLOL SUCCINATE 50 MG TAB.SR.24H PO SCH (15:56)
[2017-07-12 17:43] VITALS: BP 109/64
--- NOTE | 2017-07-12 19:58 | PDOC PROGRESS REPORT ---
Subjective Progress Note for:: 07/12/17 Subjective:: Patient seems to be doing better with gradual improvement. Pt is denying any chest arm or neck discomfort. Patient denying any PND, orthopnea. Patient denied any sustained palpitations, dizziness, syncope, near syncope. Patient denying any fever chills. Patient denying any other significant discomfort. Patient claims he had a bone scan and is waiting for the results. He is also scheduled to have upper GI endoscopy. He denied any fresh GI bleed. Patient is maintaining sinus rhythm. Review of systems: Rest review of systems negative. Medications: Medications have been reviewed. Reason For Visit: A FIB RVR,HYPOKALEMIA Physical Exam Vital Signs: Temp Pulse Resp BP Pulse Ox 97.6 F 61 19 109/64 100 07/12/17 17:18 07/12/17 17:18 07/12/17 17:18 07/12/17 17:18 07/12/17 17:18 Intake & Output 07/11/17 07/12/17 07/13/17 06:59 06:59 06:59 Intake Total 1713 650 0 Output Total 1100 0 Balance 1713 -450 0 Weight 69.9 kg 68.6 kg Exam: GENERAL: well-nourished and in no acute distress. Alert and oriented x3 HEAD: Atraumatic, normocephalic. EYES: Pupils equal round and reactive to light, extraocular movements intact, sclera anicteric, conjunctiva are normal. ENT: TMs normal, nares patent, oropharynx clear without exudates. Moist mucous membranes. No oral ulcerations or bleeding gums noted NECK: supple without lymphadenopathy. Trachea is central. No cervical or axillary lymphadenopathy noted. Carotids are 2+, JVD WNL LUNGS: Respiration seems nonlabored, no significant accessory muscle action noted. Breath sounds clear to auscultation bilaterally and equal noted. No wheezes rales or rhonchi noted. No significant dullness noted on percussion. CHEST: Palpation of the chest wall shows no significant chest wall tenderness. No other significant abnormalities noted. HEART: [place] [employer], No PSH, 1/6 LORIE aortic area, 1/6 cornejo systolic murmur mitral area, no rubs, no gallops. ABDOMEN: Soft, no significant tenderness appreciated, normoactive bowel sounds. No guarding, no rebound. No rigidity noted . No masses appreciated. EXTREMITIES: Pedal pulses are 1-2+, no calf tenderness noted. No clubbing or cyanosis.trace pedal edema noted NEUROLOGICAL: Focused neurological exam showed no significant neurologic deficit. Normal speech, no focal weakness appreciated. PSYCH: Normal mood, normal affect. Judgment and insight within normal limits. SKIN: Mild erythematous rash noted all over the body, which patient claims are chronic but no ulcerations or signs of pruritus noted. MUSCULOSKELETAL EXAM: No significant joint swelling noted. Results Laboratory Results: 07/11/17 05:34 07/11/17 05:34 07/10/17 03:45 Vitamin B1 135.9 07/08/17 07/08/17 07/08/17 10:44 10:44 22:00 Troponin I 1.860 0.664 NT-Pro-B Natriuret Pep 790 07/09/17 07/09/17 07/10/17 16:00 21:42 03:45 Troponin I 0.241 0.209 0.205 NT-Pro-B Natriuret Pep Impressions: Chest X-Ray 07/08/17 04:41 IMPRESSION: No acute cardiopulmonary findings. 2010 [employer]- All Rights Reserved Chest/Abdomen CTA 07/08/17 05:44 IMPRESSION: 1. Comminuted pathologic fracture of the sternum. Consider further evaluation with whole body bone scan and/or skeletal survey CR. 2. No acute cardiopulmonary findings. No evidence of pulmonary embolus. Cervical Spine CT 07/09/17 00:00 IMPRESSION: No acute fracture or malalignment Calcified carotid bifurcations Air-fluid level in the distended esophagus in the upper chest. Question distal esophageal stricture versus hiatal hernia with reflux Skeletal Survey 07/12/17 08:00 IMPRESSION: No lytic or blastic lesions worrisome for metastatic disease. Multiple old rib and long bone fractures. Patient has history of remote prior trauma. Heavy atherosclerotic calcification of the carotid bifurcations, abdominal aorta and iliac vessels Assessment & Plan - Diagnosis (1) Elevated troponin Is this a current diagnosis for this admission?: Yes (2) Atrial fibrillation with RVR Is this a current diagnosis for this admission?: Yes (3) COPD (chronic obstructive pulmonary disease) Qualifiers: Emphysema type: unspecified Is this a current diagnosis for this admission?: Yes (4) Diabetes mellitus type 2 in nonobese Is this a current diagnosis for this admission?: Yes (5) Hypertension Qualifiers: Hypertension type: essential hypertension Qualified Code(s): I10 - Essential (primary) hypertension Is this a current diagnosis for this admission?: Yes (6) Alcohol abuse Is this a current diagnosis for this admission?: Yes (7) 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 Is this a current diagnosis for this admission?: Yes (8) Mitral regurgitation Qualifiers: Cardiac valve disease etiology: etiology unspecified Qualified Code(s): I34.0 - Nonrheumatic mitral (valve) insufficiency Is this a current diagnosis for this admission?: Yes (9) GI bleed Qualifiers: Gastritis type: unspecified gastritis Is this a current diagnosis for this admission?: Yes (10) Sternal fracture Qualifiers: Encounter type: subsequent encounter Is this a current diagnosis for this admission?: Yes (11) Mixed myocardial ischemia and infarction Is this a current diagnosis for this admission?: Yes - Notes Notes: Stress test results were again reviewed with the patient. Based on results of stress test, patient being advised medical management with aggressive risk factor might modifications. Nuclear stress test results were again reviewed. Patient informed that nuclear stress test results suggest scar as well as some surrounding ischemia but medical management is being advised at this point. Heart catheterization to be considered should he have recurrent chest pain or other significant symptoms. Currently patient is on a stable course on current medical regimen. Patient had been advised cessation of alcohol use. As regards atrial fibrillation with RVR, patient has maintained sinus rhythm for several days. In view of history of GI bleed, chronic anticoagulation is not being recommended at this point. Patient also has other significant comorbid condition. Mitral regurgitation: Moderate in severity. Have started patient on DIA inhibitor. Dose could be escalated as tolerated. Hypertension: Blood pressure seems reasonably well-controlled. GI bleed seems stabilized with stable hemoglobin. Bone scan results reviewed. Feel that some of the chest pain could have resulted from musculoskeletal cause. Patient had other significant comorbid diagnosis which are currently stable. Patient has been offered follow-up. - Time Time with patient: Greater than 35 minutes - CODE STATUS was discussed, patient remains full code. Multiple medical problems were addressed. More than 50% of the time spent coordinating care, discussing management plans with involved caregivers. Management plans discussed with involved personnels. Medical decision making was of high complexity, patient's has multiple comorbidities. Patient does have high intensity medical problems. Medications reviewed and adjusted accordingly: Yes
--- NOTE | 2017-07-12 21:06 | PDOC DISCHARGE SUMMARY ---
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 Is this a current diagnosis for this admission?: Yes (5) Diabetes mellitus type 2 in nonobese Is this a current diagnosis for this admission?: Yes (6) Hypertension Is this a current diagnosis for this admission?: Yes (7) Alcohol abuse Is this a current diagnosis for this admission?: Yes (8) Seizures Is this a current diagnosis for this admission?: Yes (9) Thrombocytopenia Is this a current diagnosis for this admission?: Yes (10) Hypokalemia Is this a current diagnosis for this admission?: Yes (11) Hyperlipidemia Is this a current diagnosis for this admission?: Yes (12) COPD (chronic obstructive pulmonary disease) Is this a current diagnosis for this admission?: Yes (13) Melena Is this a current diagnosis for this admission?: Yes (14) Sternal fracture Is this a current diagnosis for this admission?: Yes - Additional Information Resuscitation Status: Full Code Discharge Diet: Cardiac, Diabetic Discharge Activity: Activity As Tolerated Prescriptions: Lisinopril [Prinivil 5 mg Tablet] 5 mg PO DAILY #30 tablet Metoprolol Succinate [Toprol Xl] 25 mg PO BID #60 tab.er.24h Ranolazine [Ranexa 500 mg Tab.sr] 500 mg PO Q12 #60 tab.sr.12h Sucralfate [Carafate 1 gm Tablet] 1 gm PO ACHS #120 tablet Home Medications: Abacavir/Lamivudine/Zidovudine [Qqmlayer-Jjktkefahy-Bxhqu Tab] 1 tab PO Q12 02/16 Albuterol Sulfate [Albuterol Sulfate 2.5mg/3 mL] 1 vial NEB QIDP PRN 07/09/17 Albuterol Sulfate [Proair HFA] 2 puff IH Q4HP PRN 07/09/17 Alprazolam [Xanax] 1 mg PO Q8 07/09/17 Diphenoxylate HCl/Atropine [Lomotil 2.5-0.025 mg Tablet] 1 tab PO BIDP PRN 07/09 Metformin HCl [Glucophage] 1,000 mg PO BIDACBS 07/09/17 Omeprazole 40 mg PO DAILY 07/09/17 Oxycodone HCl [Oxycodone HCl 10 MG Tablet] 10 mg PO Q8 07/09/17 Phenobarbital [Phenobarbital 64.8 mg Tablet] 64.8 mg PO Q8 07/09/17 Phenytoin Sodium Extended [Dilantin 100 mg Capsule.er] 300 mg PO DAILY 07/09/17 Promethazine HCl [Phenergan 25 mg Tablet] 25 mg PO BIDP PRN 07/09/17 Sitagliptin Phosphate [Januvia] 100 mg PO DAILY 07/09/17 Venlafaxine HCl [Venlafaxine HCl ER] 150 mg PO [id number] 07/09/17 Abacavir/Lamivudine/Zidovudine [Trizivir Tablet] 1 tab PO .Q12 07/12/17 Alprazolam [Xanax 0.5 mg Tablet] 1 mg PO Q8 tablet 07/12/17 Lisinopril [Prinivil 5 mg Tablet] 5 mg PO DAILY #30 tablet 07/12/17 Metoprolol Succinate [Toprol Xl] 25 mg PO BID #60 tab.er.24h 07/12/17 Ranolazine [Ranexa 500 mg Tab.sr] 500 mg PO Q12 #60 tab.sr.12h 07/12/17 Sucralfate [Carafate 1 gm Tablet] 1 gm PO ACHS #120 tablet 07/12/17 History of Present Illness History of Present Illness: REGINA LEAL is a 57 year old male history of HIV, epilepsy, diabetes, COPD , tobacco alcohol dependence who stated he was feeling well until he noted that his heart was beating fast and he was started have some left arm numbness. Patient states this has never happened to him before. Patient states that he was taking his breathing treatments which consist of albuterol once with this started. Patient is also a heavy drinker. Patient does not have any chest pain but did complain of some left arm numbness. When asked if patient ever had a cardiac workup he stated that he has never done one because he cannot put strain on his heart due to his breathing problems and his seizure history. Patient has a history of epilepsy and states his last seizure was back in April. The ED patient was noted to have A. fib with RVR and was given Cardizem. He was noted to have some electrolyte abnormalities. Patient was sleeping soundly and could not be awakened by me at that time. I will follow-up with patient in collected H&P later on during the admission. This was called to admit patient for A. fib with RVR. The original H&P was dictated by myself Dr. Gosia Barrett. Please refer to H& P for more details if needed. Hospital Course Hospital Course: Patient presented via EMS in A. fib with RVR most likely due to alcohol abuse and or ischemia. When patient presented in A. fib with RVR patient was started on Cardizem drip and given digoxin in the ED patient quickly converted and drip was discontinued. Patient was resumed on Toprol XL. Patient became bradycardic and his dose of Toprol was decreased to 25 mg p.o. twice daily. Anticoagulation was given as patient may be having a ongoing GI bleed. Patient' s continued left hand numbness,chest tightness and elevated troponin without EKG changes was concerning for NSTEMI. Patient was started on Nitropaste, Lovenox, beta-js,aspirin and statin. Cardiology was consulted. Patient did undergo a stress test during this admission. Stress test was done on 2016 and demonstrated a inferolateral predominantly fixed defects indicative of scar. Patient did have a small area of surrounding transient perfusion defect or ischemia noted. Patient had mild inferolateral hypokinesia. Stated that once the Nitropaste was placed all of the discomfort went away. This is indicative of cardiac ischemia. Patient was started on Ranexa p.o. twice daily. Unfortunately patient developed worsening dark stools when started on aspirin and Lovenox. Patient states he has been having ongoing dark stools prior to this. GI was consulted and was going to evaluate patient with upper EGD. Unfortunately, EGD due to recent cardiac event and need for general anesthesia the procedure had to be aborted. Continued on PPI and Carafate. Patient should follow-up with GI on discharge. Patient was noted to have a sternal fracture on CTA of the chest. Patient had a skeletal survey that showed many abnormalities due to previous trauma however nothing concerning for possible malignancy. She was noted to have a grade 2 out of 4 diastolic heart failure however patient was compensated. Patient was continued on beta-js and lisinopril was added. Remaining medical conditions were stable during the hospitalization. Patient was counseled on smoking and alcohol cessation. Patient was discharged to follow-up with Dr. Franz as outpatient. Physical Exam Vital Signs: Temp Pulse Resp BP Pulse Ox 97.4 F 67 18 123/77 100 07/12/17 13:08 07/12/17 14:00 07/12/17 13:08 07/12/17 13:08 07/12/17 13:08 Intake & Output 07/11/17 07/12/17 07/13/17 06:59 06:59 06:59 Intake Total 1713 650 0 Output Total 1100 0 Balance 1713 -450 0 Weight 69.9 kg 68.6 kg General appearance: PRESENT: no acute distress, well-developed, well-nourished Head exam: PRESENT: normocephalic Eye exam: PRESENT: EOMI. ABSENT: scleral icterus Ear exam: PRESENT: normal external ear exam Mouth exam: PRESENT: moist Neck exam: ABSENT: carotid bruit, JVD, lymphadenopathy, thyromegaly Respiratory exam: PRESENT: clear to auscultation helen. ABSENT: rales, rhonchi, wheezes Cardiovascular exam: PRESENT: RRR. ABSENT: diastolic murmur, rubs, systolic murmur GI/Abdominal exam: PRESENT: normal bowel sounds, soft. ABSENT: distended, guarding, mass, organolmegaly, rebound, tenderness Rectal exam: PRESENT: deferred Extremities exam: PRESENT: full ROM. ABSENT: calf tenderness, clubbing, pedal edema Neurological exam: PRESENT: alert, awake, oriented to person, oriented to place , oriented to time, oriented to situation, CN II-XII grossly intact. ABSENT: motor sensory deficit Psychiatric exam: PRESENT: appropriate affect, normal mood. ABSENT: homicidal ideation, suicidal ideation Skin exam: PRESENT: dry, intact, warm. ABSENT: cyanosis, rash Results Laboratory Results: 07/11/17 05:34 07/11/17 05:34 07/10/17 03:45 Vitamin B1 135.9 07/08/17 07/08/17 07/08/17 10:44 10:44 22:00 Troponin I 1.860 0.664 NT-Pro-B Natriuret Pep 790 07/09/17 07/09/17 07/10/17 16:00 21:42 03:45 Troponin I 0.241 0.209 0.205 NT-Pro-B Natriuret Pep Impressions: Chest X-Ray 07/08/17 04:41 IMPRESSION: No acute cardiopulmonary findings. 2010 [employer]- All Rights Reserved Chest/Abdomen CTA 07/08/17 05:44 IMPRESSION: 1. Comminuted pathologic fracture of the sternum. Consider further evaluation with whole body bone scan and/or skeletal survey CR. 2. No acute cardiopulmonary findings. No evidence of pulmonary embolus. Cervical Spine CT 07/09/17 00:00 IMPRESSION: No acute fracture or malalignment Calcified carotid bifurcations Air-fluid level in the distended esophagus in the upper chest. Question distal esophageal stricture versus hiatal hernia with reflux Skeletal Survey 07/12/17 08:00 IMPRESSION: No lytic or blastic lesions worrisome for metastatic disease. Multiple old rib and long bone fractures. Patient has history of remote prior trauma. Heavy atherosclerotic calcification of the carotid bifurcations, abdominal aorta and iliac vessels Qualifiers P[place]INT BEING DISCHARGED WITH ANY OF THE FOLLOWING DIAGNOSIS?: LA LA Pt being discharged on Aspirin therapy?: No Reason(s) for not prescribing Aspirin therapy:: Contraindicated LA Pt being discharged on Statins?: Yes LA Pt discharged ACEI/ARBS?: Yes HF Pt being discharged on ACEI for LVEF less than 40%?: No HF Pt being discharged on ARBS for LVEF less than 40%?: No HF Pt with Afib discharged with Warfarin?: No HF Pt discharged on evidence-based Beta Js:: Yes Plan Time Spent: Greater than 30 Minutes
[2017-07-13] MEDS ORDERED: LISINOPRIL 5 MG TABLET PO SCH (10:00)
== END 2017-07-12 18:23 | disposition home or self-care (01) | DRG 308 ==
LOC: ER 04:39 → EH 08:34 → 3W 21:25
PROVIDERS: ADMIT Internal Medicine; ATTEND Internal Medicine
DX: I48.91 Unspecified atrial fibrillation (principal); B20 Human immunodeficiency virus [HIV] disease; K29.71 Gastritis, unspecified, with bleeding; K92.1 Melena; S22.20XD Unspecified fracture of sternum, subsequent encounter for fracture with routine healing; E87.6 Hypokalemia; R79.89 Other specified abnormal findings of blood chemistry; J44.9 Chronic obstructive pulmonary disease, unspecified; E11.9 Type 2 diabetes mellitus without complications; R20.0 Anesthesia of skin; I10 Essential (primary) hypertension; K21.9 Gastro-esophageal reflux disease without esophagitis; F10.10 Alcohol abuse, uncomplicated; G40.909 Epilepsy, unspecified, not intractable, without status epilepticus; D69.6 Thrombocytopenia, unspecified; E78.5 Hyperlipidemia, unspecified; I34.0 Nonrheumatic mitral (valve) insufficiency; F32.9 Major depressive disorder, single episode, unspecified; Z79.899 Other long term (current) drug therapy; Z79.84 Long term (current) use of oral hypoglycemic drugs; Z88.0 Allergy status to penicillin; Z88.8 Allergy status to other drugs, medicaments and biological substances; Z91.030 Bee allergy status; Z91.038 Other insect allergy status
CPT/HCPCS: 36415; 71045; 71275; 72125; 77075; 78452; 80048; 80053; 80061; 80185; 80307; 81001; 82140; 82272; 82550; 82553; 82607; 82746; 82962; 83036; 83735; 83880; 84425; 84439; 84443; 84484; 85025; 85027; 85610; 85730; 90686; 93005; 93010; 93017; 93306; 94640; 96365; 96366; 96375; 99291; A9500; J0153; J0280; J1160; J1650; J2310; J2785; J3475; J3490; J7030; J7120; Q9969; S0119; S0164

== ENCOUNTER 2017-07-14 16:50 | Emergency (ER) | payer MEDICARE, MEDICAID ==
[2017-07-14] MEDS ORDERED: NORMAL SALINE 1000 ML 1,000 ML IV ONE ×2 (18:03→20:11)
--- NOTE | 2017-07-14 18:20 | ER Document Report ---
ED General - General Chief Complaint: ETOH Abuse Stated Complaint: WEAKNESS Time Seen by Provider: 07/14/17 18:03 Notes: 57-year-old male with alcoholism presents with "I cannot breathe." He is intoxicated and cannot give much of the history but it seems he was discharged AGAINST MEDICAL ADVICE quite recently after an episode of GI bleeding A. fib with RVR alcohol withdrawal and electrolyte abnormalities. TRAVEL OUTSIDE OF THE [place] IN LAST 30 DAYS: No - Related Data Allergies/Adverse Reactions: chlorpromazine Allergy (Verified 05/05/17 14:47) Penicillins Allergy (Verified 05/05/17 14:47) ants Allergy (Uncoded 05/05/17 14:47) bees Allergy (Uncoded 05/05/17 14:47) Past Medical History - General Information source: [facility] Records Cannot obtain history due to: Altered mental status - Social History Smoking Status: Current Every Day Smoker Chew tobacco use (# tins/day): No Frequency of alcohol use: Heavy Drug Abuse: None Family History: Arthritis, CAD, DM, Hyperlipidemia, Hypertension, Malignancy. denies: CVA, Thyroid Disfunction Patient has suicidal ideation: No Patient has homicidal ideation: No - Past Medical History Cardiac Medical History: Reports: Hx Hypercholesterolemia, Hx Hypertension, Hx Heart Murmur Denies: Hx Heart Attack Pulmonary Medical History: Reports: Hx Asthma, Hx Bronchitis, Hx COPD, Hx Pneumonia Denies: Hx Intubation, Hx Sleep Apnea, Hx Tuberculosis Neurological Medical History: Reports: Hx Migraine, Hx Seizures. Denies: Hx Cerebrovascular Accident Endocrine Medical History: Reports: Hx Diabetes Mellitus Type 2. Denies: Hx Hyperthyroidism, Hx Hypothyroidism Renal/ Medical History: Reports: Hx Benign Prostatic Hyperplasia. Denies: Hx Peritoneal Dialysis GI Medical History: Reports: Hx Gastritis, Hx Gastroesophageal Reflux Disease, Hx Irritable Bowel, Hx Colonoscopy. Denies: Hx Hepatitis, Hx Hiatal Hernia, Hx Endoscopy Musculoskeltal Medical History: Reports Hx Arthritis, Reports Hx Musculoskeletal Deformity, Reports Hx Musculoskeletal Trauma Psychiatric Medical History: Reports: Hx Depression Traumatic Medical History: Reports: Hx Fractures - leg both Infectious Medical History: Reports: Hx HIV. Denies: Hx Hepatitis Past Surgical History: Reports: Hx Orthopedic Surgery - multiple leg surgeries ons left shoulder surgery. Denies: Hx Pacemaker - Immunizations Immunizations up to date: Yes Hx Diphtheria, Pertussis, Tetanus Vaccination: Yes Hx Pneumococcal Vaccination: 06/01/11 Review of Systems - Review of Systems Notes: REVIEW OF SYSTEMS PHYSICAL EXAMINATION General: No acute distress, well-nourished Head: Atraumatic, normocephalic ENT: Mouth normal, oropharynx moist, no exudates or tonsillar enlargement Eyes: Conjunctiva normal, pupils equal, lids normal Neck: No JVD, supple, no guarding CVS: Normal rate, regular rhythm, no murmurs Resp: No resp distress, equal and normal breath sounds bilaterally GI: Nondistended, soft, no tenderness to palpation, no rebound or guarding Ext: No deformities, no edema, normal range of motion in upper and lower ext Back: No CVA or midline TTP Skin: No rash, warm Lymphatic: No lymphadeopathy noted Neuro: A slurred speech nystagmus smells of alcohol, face is symmetric moves all extremities. 5. -: Yes ROS unobtainable due to patient's medical condition Physical Exam - Vital signs Vitals: Temp Pulse Resp BP Pulse Ox 98.3 F 91 20 110/64 95 07/14/17 17:05 07/14/17 17:05 07/14/17 17:05 07/14/17 17:05 07/14/17 17:05 Course - Re-evaluation Re-evalutation: 07/14/17 18:20 87-year-old male alcoholic with history of withdrawal A. fib and GI bleeding presents with altered mental status likely alcohol. He is mildly tachycardic. His abdomen is nontender. Differential includes A. fib RVR, GI bleeding, alcohol withdrawal versus intoxication. He will be monitored, I will get type and screen and blood work, check an EKG, and reassess. 07/14/17 19:19 Reassessed at 7:15 PM. Heart rate is climbing slightly to about 110. Still intoxicated, so we will withhold Ativan. I will hydrate. CBC looks normal. Basic metabolic panel and EKG are pending. On further review the patient's chart he had an elevated troponin during his last admission, was supposed to have an EGD but that was aborted. He was actually discharged and not AGAINST MEDICAL ADVICE. 07/14/17 19:31 Update: Patient EKG just handed to me. He has some concerning findings for cardiac ischemia including multiple ST depressed leads in the septum. He has minimal ST elevation in aVR. 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 I requested immediately to the posterior EKG be performed to rule out posterior STEMI. 07/14/17 20:07 Your EKG is normal. Troponin is detectable but not meeting criteria for acute PR. Patient is still intoxicated and not reporting chest pain. I spoke with Dr. Humphrey the hospitalist who states that this patient cannot be admitted here because he probably needs a cath. I have called [facility] for transfer. In reviewing the patient's records he had evidence of GI bleeding on his last admission and never had an endoscopy, so as much as I would like to give him Lovenox for presumed unstable angina versus developing and 70 I feel that this is dangerous. I did give him aspirin think the outweighs the risk. - Vital Signs Vital signs: Temp Pulse Resp BP Pulse Ox 98.3 F 91 20 110/64 95 07/14/17 17:05 07/14/17 17:05 07/14/17 17:05 07/14/17 17:05 07/14/17 17:05 - Laboratory Result Diagrams: 07/14/17 18:34 07/14/17 18:34 Laboratory results interpreted by fl: 07/14/17 07/14/17 18:34 18:34 RBC 3.49 L MCV 116 H MCH 40.1 H Plt Count 145 L Sodium 133.6 L Chloride 95 L Carbon Dioxide 20 L Creatinine 0.44 L - EKG Interpretation by Nm EKG shows normal: Sinus rhythm Rate: Tachycardia Rhythm: NSR When compared to previous EKG there are: Changes noted - ST depression in the anterior leads which is changed from prior and associated with T-wave inversions. Minimal ST elevation in lead aVR. Critical Care Note - Critical Care Note Total time excluding time spent on procedures (mins): 40 Comments: The above patient is critically ill. Not including procedures, but including direct re-evaluations, speaking with patient and/or consultants, interpreting results, and documenting, I spent the total amount of minute listed listed above on critical care time
[2017-07-14 18:54] LABS: ABSOLUTE EOSINOPHILS # (AUTO) 0.1 10^3/uL (0.0-0.6); ABSOLUTE LYMPHOCYTES (AUTO) 2.2 10^3/uL (0.5-4.7); ABSOLUTE MONOCYTES (AUTO) 0.4 10^3/uL (0.1-1.4); ABSOLUTE NEUT (AUTO) 2.5 10^3/uL (1.7-8.2); BASOPHILS % (AUTO) 0.6 % (0-2); EOSINOPHILS % (AUTO) 2.7 % (0-6); HEMATOCRIT 40.3 % (37.9-51.0); LYMPHOCYTES % (AUTO) 41.2 % (13-45); MEAN CORPUSCULAR HEMOGLOBIN 40.1 pg (27.0-33.4); MEAN CORPUSCULAR HGB CONC 34.7 g/dL (32.0-36.0); MEAN CORPUSCULAR VOLUME 116 fl (80-97); MONOCYTES % (AUTO) 8.1 % (3-13); PLATELET COUNT 145 10^3/uL (150-450); RED BLOOD COUNT 3.49 10^6/uL (4.35-5.55); RED CELL DISTRIBUTION WIDTH 13.3 % (11.5-14.0); SEGMENTED NEUTROPHILS % (AUTO) 47.4 % (42-78); TOTAL CELLS COUNTED % (AUTO) 100 %; WHITE BLOOD COUNT 5.3 10^3/uL (4.0-10.5)
[2017-07-14 19:16] LABS: PLATELET COMMENT DECREASED
[2017-07-14 19:17] LABS: PLATELET LARGE PRESENT; POLYCHROMASIA SLIGHT
[2017-07-14 19:19] LABS: ANION GAP 19 (5-19); BLOOD UREA NITROGEN 9 mg/dL (7-20); CALCIUM 8.7 mg/dL (8.4-10.2); CARBON DIOXIDE 20 mmol/L (22-30); CHLORIDE 95 mmol/L (98-107); GLUCOSE 79 mg/dL (75-110); MAGNESIUM 1.9 mg/dL (1.6-2.3); POTASSIUM 4.1 mmol/L (3.6-5.0); SODIUM 133.6 mmol/L (137-145)
[2017-07-14] MEDS ORDERED: ASPIRIN 81 MG TABLET, CHEWABLE PO ONE (19:31)
[2017-07-14] MEDS ORDERED: LORAZEPAM INJ 2 MG/1 ML VIAL IV ONE (20:17)
[2017-07-14 22:35] VITALS: BP 133/80
--- NOTE | 2017-07-15 08:44 | EKG REPORT ---
SEVERITY:- ABNORMAL ECG - SINUS TACHYCARDIA REPOL ABNRM, PROBABLE ISCHEMIA, ANT-LAT LEADS : Confirmed by: Ethan Clay MD 15-Jul-2017 08:43:58
--- NOTE | 2017-07-17 20:26 | EKG REPORT ---
SEVERITY:- ABNORMAL ECG - SINUS TACHYCARDIA ANTERIOR INFARCT, AGE INDETERMINATE BORDERLINE PROLONGED QT INTERVAL : Confirmed by: Tracie Masterson 17-Jul-2017 20:26:24
== END 2017-07-14 23:05 | disposition short-term general hospital (02) ==
LOC: ER 16:50
DX: F10.231 Alcohol dependence with withdrawal delirium (principal); F10.229 Alcohol dependence with intoxication, unspecified; I10 Essential (primary) hypertension; J44.9 Chronic obstructive pulmonary disease, unspecified; E11.9 Type 2 diabetes mellitus without complications; R00.0 Tachycardia, unspecified; F17.200 Nicotine dependence, unspecified, uncomplicated; Z88.0 Allergy status to penicillin; Z91.038 Other insect allergy status; Z88.8 Allergy status to other drugs, medicaments and biological substances; Z21 Asymptomatic human immunodeficiency virus [HIV] infection status
CPT/HCPCS: 93005; 99291; 96361; 96374; 86900; 86901; 36415; 86850; 83735; 85025; 80048; 84484; 93010; A9270; J2060; J7030